=== PATIENT | female | born 1970 | race African-American/Black ===

== ENCOUNTER 2020-02-21 13:57 | Outpatient (REF) | payer OTHER, SELFPAY ==
--- NOTE | 2020-02-21 14:19 | US_ITS ---
EXAMINATION: US PELVIS COMPLETE CLINICAL INFORMATION: Menorrhagia. COMPARISON: Ultrasound 03/02/2018. TECHNIQUE: Routine transabdominal and transvaginal ultrasound the pelvis is performed. FINDINGS: Uterus is retroverted and retroflexed measuring 11.1 cm in length, 4.5 cm in AP and 5.9 cm in transverse dimension. The endometrial thickness measures 0.6 cm. No IUD is present at this time. The uterus is slightly heterogenous but no focal mass seen. The right ovary measures 3.7 x 2.4 x 2.5 cm and volume 11.6 mL. There is a corpus luteal cyst measuring 1.6 x 1.5 x 1.7 cm. Previously right ovary measured 2.7 x 1.5 x 1.8 cm and volume 3.89 mL. Left ovary measures 3.1 x 1.9 x 1.7 cm and volume 5.2 mL. A few scattered follicles are seen. The largest dominant follicle measures 1.0 x 1.3 x 1.3 cm. There is no free fluid in the cul-de-sac. IMPRESSION: Unremarkable uterus. Small corpus luteal cyst right ovary. Small follicles in the left ovary with a dominant follicle measuring 1.3 cm.
== END 2020-02-21 13:58 | disposition home or self-care (01) ==
LOC: HO.US 13:57
PROVIDERS: Visit Provider Advanced Practice Midwife
DX: N92.0 Excessive and frequent menstruation with regular cycle (principal)
CPT/HCPCS: 76830; 76856

== ENCOUNTER 2020-02-27 09:15 | Day surgery (SDC) | payer OTHER, SELFPAY ==
[2020-02-21 15:43] VITALS: BMI 27.1
--- NOTE | 2020-02-26 12:41 | HO.ANESPROP2 ---
HPI - Anesthesia Eval Consult details Narrative: 49yo F for Colonoscopy PMFSH Past Medical History Medical History (Updated 02/27/20 @ 11:50 by Amanda Lopez MD) Acute anxiety Back pain Bronchial asthma Complex cyst of right ovary Complex ovarian cyst Depression Dysfunctional uterine bleeding EMG normal GERD (gastroesophageal reflux disease) Hemorrhoids Herpes genitalia HNP (herniated nucleus pulposus) PPD positive Family History Family History Father Hyperlipidemia Colon cancer CVD (cardiovascular disease) Mother Diabetes mellitus Glaucoma Maternal Grandmother Diabetes mellitus HTN (hypertension) Maternal Aunt Breast cancer Surgical History Surgical History History of 3 sections History of bilateral tubal ligation History of esophagogastroduodenoscopy (EGD) Social History Social History Alcohol intake: never Smoking Status: Never smoker Use of substances other than those prescribed or required for medical reasons: No Advance Directives: No Advance Directives Information Provided: Yes Gender identity: female Meds Allergies Allergy/AdvReac Type Severity Reaction Status Date / Time latex [LATEX] Allergy Mild RASH Verified 02/15/20 11:13 acetaminophen [From PERCOCET] Allergy Unknown RASH Verified 02/15/20 11:13 oxycodone [Percocet] Allergy Unknown rash Verified 02/15/20 11:13 Sulfa (Sulfonamide Allergy Unknown RASH Verified 02/15/20 11:13 Antibiotics) [SULFA (SULFONAMIDE ANTIBIOTICS)] amoxicillin [Augmentin] AdvReac Unknown diarrhea Verified 02/15/20 11:13 clavulanic acid [Augmentin] AdvReac Unknown diarrhea Verified 02/15/20 11:13 AUGMENTIN Allergy Unknown diarrhea Uncoded 06/07/19 00:00 PERCOCET Allergy Unknown rash Uncoded 06/07/19 00:00 Home Medications Medication Instructions Recorded Confirmed Type ascorbate calcium (vitamin C) 500 500 mg PO DAILY 02/15/20 02/21/20 History mg tablet cetirizine 10 mg capsule 10 mg PO DAILY 02/15/20 02/21/20 History ferrous sulfate 325 mg (65 mg 325 mg PO DAILY 02/15/20 02/21/20 History iron) tablet fluticasone propionate 50 1 spray INTRANASAL DAILY 02/15/20 02/21/20 History mcg/actuation nasal spray,suspension omeprazole 20 mg capsule,delayed 20 mg PO DAILY 02/15/20 02/21/20 History release Exam Exam Date and Time: February 26, 2020 1241 Height,Weight and Vital Signs: Height 5 ft 4 in Weight 71.668 kg Pertinent Lab Results Pertinent Lab Results: Laboratory Tests 12/01/19 14:46 WBC 5.3 Hgb 13.2 Hct 39.2 Plt Count 337 Assessment and Plan Assessment Anesthesia Assessment: Chart Reviewed
--- NOTE | 2020-02-27 10:19 | MHC.SHP ---
Pre-Procedural Eval Section B Chief Complaint: Screening Details of Present Illness: Colon cancer screening, family history of colon cancer Relevant Family History (Specify if Yes): Yes Relevant Social History: None Present Medications: see Short Stay Collaborative assessment Medical History: Significant History (Herpes, genital. GERD . ANXIETY. DEPRESSION . OVARIAN CYST . BACK PAIN ON AND OFF . HNP . PPD POSITIVE . DYSFUNCTIONAL UTERINE BLEEDING . BRONCHIAL ASTHMA. ) History of Previous Operations: Relevant previous surgery/procedure and date(s) (C section x 2, BTL) Allergies: Allergies Allergy/AdvReac Type Severity Reaction Status Date / Time latex [LATEX] Allergy Mild RASH Verified 02/15/20 11:13 acetaminophen [From PERCOCET] Allergy Unknown RASH Verified 02/15/20 11:13 oxycodone [Percocet] Allergy Unknown rash Verified 02/15/20 11:13 Sulfa (Sulfonamide Allergy Unknown RASH Verified 02/15/20 11:13 Antibiotics) [SULFA (SULFONAMIDE ANTIBIOTICS)] amoxicillin [Augmentin] AdvReac Unknown diarrhea Verified 02/15/20 11:13 clavulanic acid [Augmentin] AdvReac Unknown diarrhea Verified 02/15/20 11:13 AUGMENTIN Allergy Unknown diarrhea Uncoded 06/07/19 00:00 PERCOCET Allergy Unknown rash Uncoded 06/07/19 00:00 Review of Systems Sugical H&P ROS: Negative: Constitution, Cardiovascular, Respiratory, Gastrointestinal and Musculoskeletal Exam Surgical H&P Exam: Normal: Heart, Normal: Lungs, Normal: Extremities and Normal: Abdomen Plan Diagnosis/Plan: Unchanged Patient has been examined and remains a candidate for the planned procedure
[2020-02-27 10:46] VITALS: BP 128/78; PULSE 68; RESP 18; TEMP 36.5; O2SAT 100
--- NOTE | 2020-02-27 10:47 | P.BOP_ITS ---
Brief Operative Note Date of procedure: 02/27/20 Pre-op diagnosis: Colon cancer screening, family history of colon cancer Post-op diagnosis: other (hemorrhoids) Procedure: COLONOSCOPY TILL CECUM WITH BIOPSIES Consent: Indications for the procedure and potential complications of bleeding, perforation, reaction to medications and missed diagnosis were discussed with the patient and informed consent was obtained. Instrument: Olympus PCF H 190 L variable stiffness pediatric colonoscope Monitoring: Vital signs and clinical assessment, intermittent blood pressure monitoring, continuous EKG monitoring, Pulse oximetry and Carbon Dioxide monitoring were done throughout the procedure. Colon withdrawl time was 12 minutes. Procedure: The patient was placed in the left lateral decubitis position and pre-procedure medications were administered. After a digital rectal examination of the ano-rectum, the video colonoscope was inserted into the rectum and advanced through the colon to the cecum. The colonoscope was slowly withdrawn in a retrograde panoramic fashion and the colon mucosa was carefully examined including a retroflexed view of the rectum. Findings and interventions are described below. Procedure Difficulty: colon was long, tortuous and redundant and there was recurrent loop formation. Pt was placed in the supine position and LLQ pressure was applied to intubate the ascending colon Findings: Terminal Ileum: Not evaluated Cecum: Normal Ascending Colon: Normal Transverse Colon: Normal Descending Colon: Normal Sigmoid Colon: Normal Rectum: Normal Ano-rectum: Moderate internal hemorrhoids Colon preparation: Excellent Impression and Post Procedure Diagnosis: Colonoscopy Findings: No polyps were detected, random biopsies were obtained from the colon. Moderate hemorrhoids on retroflexed exam. Plan: Await pathology results Patient has an appointment on 03/04/20 in the [facility] with Amanda Lopez M.D.- . Repeat Colonoscopy interval based on path results - in 5 years due to positive FH of colon cancer (Dad in his 60's). Above findings were reviewed with the patient and a handout on Hemorrhoids was given in the discharge area Surgeon: Amanda Lopez MD Anesthesia: MAC (Dr Taylor) Educational Speech Language Clinician: Evelin Ascencio Estimated blood loss (mL): 0 Pathology: other (A. Random colon biopsies) Condition: stable Disposition: PACU
[2020-02-27] MEDS: Lactated Ringers 1,000 ML 100 ML IVCONT (10:52)
--- NOTE | 2020-02-27 11:26 | P.CONAN_ITS ---
[facility] / [facility] Past Medical History Medical History Acute anxiety Back pain Bronchial asthma Complex cyst of right ovary Complex ovarian cyst Depression Dysfunctional uterine bleeding EMG normal GERD (gastroesophageal reflux disease) Herpes genitalia HNP (herniated nucleus pulposus) PPD positive Family History Family History Father Hyperlipidemia Colon cancer CVD (cardiovascular disease) Mother Diabetes mellitus Glaucoma Maternal Grandmother Diabetes mellitus HTN (hypertension) Maternal Aunt Breast cancer Surgical History Surgical History History of 3 sections History of bilateral tubal ligation History of esophagogastroduodenoscopy (EGD) Social History Social History Alcohol intake: never Smoking Status: Never smoker Use of substances other than those prescribed or required for medical reasons: No Advance Directives: No Advance Directives Information Provided: Yes Gender identity: female Meds Allergies Allergy/AdvReac Type Severity Reaction Status Date / Time latex [LATEX] Allergy Mild RASH Verified 02/15/20 11:13 acetaminophen [From PERCOCET] Allergy Unknown RASH Verified 02/15/20 11:13 oxycodone [Percocet] Allergy Unknown rash Verified 02/15/20 11:13 Sulfa (Sulfonamide Allergy Unknown RASH Verified 02/15/20 11:13 Antibiotics) [SULFA (SULFONAMIDE ANTIBIOTICS)] amoxicillin [Augmentin] AdvReac Unknown diarrhea Verified 02/15/20 11:13 clavulanic acid [Augmentin] AdvReac Unknown diarrhea Verified 02/15/20 11:13 AUGMENTIN Allergy Unknown diarrhea Uncoded 06/07/19 00:00 PERCOCET Allergy Unknown rash Uncoded 06/07/19 00:00 Home Medications Medication Instructions Recorded Confirmed Type ascorbate calcium (vitamin C) 500 500 mg PO DAILY 02/15/20 02/21/20 History mg tablet cetirizine 10 mg capsule 10 mg PO DAILY 02/15/20 02/21/20 History ferrous sulfate 325 mg (65 mg 325 mg PO DAILY 02/15/20 02/21/20 History iron) tablet fluticasone propionate 50 1 spray INTRANASAL DAILY 02/15/20 02/21/20 History mcg/actuation nasal spray,suspension omeprazole 20 mg capsule,delayed 20 mg PO DAILY 02/15/20 02/21/20 History release Exam Exam Date and Time: February 27, 2020 1126 Height,Weight and Vital Signs: Height 5 ft 4 in Weight 71.668 kg Last Vital Signs Temp 97.7 F 02/27/20 10:46 Pulse 68 02/27/20 10:46 Resp 18 02/27/20 10:46 BP 128/78 02/27/20 10:46 Pulse Ox 100 02/27/20 10:46 Airway Mallampati Class: II TM Dist: >3cm Neck ROM: Full Heart: RRR Lungs: CTA BL
--- NOTE | 2020-02-27 11:28 | P.CONAN_ITS ---
[facility] Past Medical History Medical History Acute anxiety Back pain Bronchial asthma Complex cyst of right ovary Complex ovarian cyst Depression Dysfunctional uterine bleeding EMG normal GERD (gastroesophageal reflux disease) Herpes genitalia HNP (herniated nucleus pulposus) PPD positive Family History Family History Father Hyperlipidemia Colon cancer CVD (cardiovascular disease) Mother Diabetes mellitus Glaucoma Maternal Grandmother Diabetes mellitus HTN (hypertension) Maternal Aunt Breast cancer Surgical History Surgical History History of 3 sections History of bilateral tubal ligation History of esophagogastroduodenoscopy (EGD) Social History Social History Alcohol intake: never Smoking Status: Never smoker Use of substances other than those prescribed or required for medical reasons: No Advance Directives: No Advance Directives Information Provided: Yes Gender identity: female Meds Allergies Allergy/AdvReac Type Severity Reaction Status Date / Time latex [LATEX] Allergy Mild RASH Verified 02/15/20 11:13 acetaminophen [From PERCOCET] Allergy Unknown RASH Verified 02/15/20 11:13 oxycodone [Percocet] Allergy Unknown rash Verified 02/15/20 11:13 Sulfa (Sulfonamide Allergy Unknown RASH Verified 02/15/20 11:13 Antibiotics) [SULFA (SULFONAMIDE ANTIBIOTICS)] amoxicillin [Augmentin] AdvReac Unknown diarrhea Verified 02/15/20 11:13 clavulanic acid [Augmentin] AdvReac Unknown diarrhea Verified 02/15/20 11:13 AUGMENTIN Allergy Unknown diarrhea Uncoded 06/07/19 00:00 PERCOCET Allergy Unknown rash Uncoded 06/07/19 00:00 Home Medications Medication Instructions Recorded Confirmed Type ascorbate calcium (vitamin C) 500 500 mg PO DAILY 02/15/20 02/21/20 History mg tablet cetirizine 10 mg capsule 10 mg PO DAILY 02/15/20 02/21/20 History ferrous sulfate 325 mg (65 mg 325 mg PO DAILY 02/15/20 02/21/20 History iron) tablet fluticasone propionate 50 1 spray INTRANASAL DAILY 02/15/20 02/21/20 History mcg/actuation nasal spray,suspension omeprazole 20 mg capsule,delayed 20 mg PO DAILY 02/15/20 02/21/20 History release Exam Exam Date and Time: February 27, 2020 1128 Height,Weight and Vital Signs: Height 5 ft 4 in Weight 71.668 kg Last Vital Signs Temp 97.7 F 02/27/20 10:46 Pulse 68 02/27/20 10:46 Resp 18 02/27/20 10:46 BP 128/78 02/27/20 10:46 Pulse Ox 100 02/27/20 10:46 Assessment and Plan Assessment Anesthesia Assessment: Anesthesia Plan Discussed and PAT Visit Final Anesthetic Review NPO: Yes ASA Class: II Final Preanesthetic Review: No Changes in Pt Med Stat, Meds/Allgs Chart Reviewed, Consent Obtained/Reviewed and Anes Risks/Benef Reviewed Patient Risk: Low Procedure Risk: Low Anesthetic Plan Anesthetic Plan: MAC: Disposition: Standard PACU
[2020-02-27 11:58] VITALS: BP 119/58; PULSE 88; RESP 16; TEMP 36.2; O2SAT 100
[2020-02-27 12:13] VITALS: BP 109/67; PULSE 82; RESP 17; TEMP 37.1; O2SAT 99
--- NOTE | 2020-02-27 12:44 | HO.POSTANES ---
Post Anesthesia Evaluation Post Anesthesia Evaluation Vital Signs: Vital Signs Temp Pulse Resp BP Pulse Ox 02/27/20 12:13 98.8 F 82 17 109/67 99 02/27/20 11:58 97.1 F 88 16 119/58 L 100 02/27/20 10:46 97.7 F 68 18 128/78 100 Anesthesia: Monitored Mental Status: Awake Pain Control: Satisfactory Nausea/Vomiting: None Hydration: Adequate Anesthesia-Related Issues: No Anes. Related Issues
== END 2020-02-27 12:50 | disposition home or self-care (01) ==
PROVIDERS: PCP Internal Medicine; Visit Provider Internal Medicine Gastroenterology
PROC: 0DJD8ZZ Inspection of Lower Intestinal Tract, Via Natural or Artificial Opening Endoscopic (ICD-10-PCS; CPT 45378; principal; 2020-02-27 10:30)
DX: Z12.11 Encounter for screening for malignant neoplasm of colon (principal); Z80.0 Family history of malignant neoplasm of digestive organs; K64.8 Other hemorrhoids; K21.9 Gastro-esophageal reflux disease without esophagitis; F41.9 Anxiety disorder, unspecified; J45.909 Unspecified asthma, uncomplicated; A60.00 Herpesviral infection of urogenital system, unspecified; R76.11 Nonspecific reaction to tuberculin skin test without active tuberculosis; Z79.51 Long term (current) use of inhaled steroids; Z79.899 Other long term (current) drug therapy; Z88.2 Allergy status to sulfonamides; Z88.1 Allergy status to other antibiotic agents; Z88.8 Allergy status to other drugs, medicaments and biological substances; Z91.040 Latex allergy status
CPT/HCPCS: 45380; 88305

== ENCOUNTER → 2020-03-04 11:24 | Outpatient (BNVA) | payer OTHER, SELFPAY | PROVIDERS: PCP Internal Medicine; Visit Provider Advanced Practice Midwife | DX: Z76.89 Persons encountering health services in other specified circumstances (principal) ==

== ENCOUNTER → 2020-03-08 13:05 | Outpatient (BNVA) | payer OTHER, SELFPAY | PROVIDERS: PCP Internal Medicine; Visit Provider Urology | DX: N39.3 Stress incontinence (female) (male) (principal) | CPT/HCPCS: 81002 ==

== ENCOUNTER 2020-04-30 09:18 | Outpatient (REF) | payer OTHER, SELFPAY ==
[2020-04-30 11:47] LABS: Hematocrit 39.4 % (37-47); Hemoglobin 12.9 g/dl (12.0-16.0); Mean Corpuscular HGB Conc 32.7 g/dl (31.0-35.0); Mean Corpuscular Hemoglobin 31.9 pg (27.0-33.0); Mean Corpuscular Volume 97.5 fL (80-98); Mean Platelet Volume 9.7 fL (9.4-12.3); Platelet Count 373 X10*3/uL (160-400); Red Blood Count 4.04 X10*6/uL (4.20-5.50); Red Cell Distribution Width 13.2 % (11.0-16.0); White Blood Count 4.5 X10*3/uL (4.8-10.8)
[2020-04-30 12:17] LABS: TSH reflex Free T4 1.58 mIU/mL (0.32-4.0)
== END 2020-04-30 09:19 | disposition home or self-care (01) ==
LOC: HO.LAB 09:18
PROVIDERS: PCP Internal Medicine; Visit Provider Advanced Practice Midwife
DX: N92.0 Excessive and frequent menstruation with regular cycle (principal)
CPT/HCPCS: 36415; 84443; 85027

== ENCOUNTER → 2020-05-07 11:12 | Outpatient (BNVA) | payer OTHER, SELFPAY | PROVIDERS: PCP Internal Medicine; Visit Provider Advanced Practice Midwife | DX: Z76.89 Persons encountering health services in other specified circumstances (principal) ==

== ENCOUNTER 2020-05-22 07:56 | Outpatient (REF) | payer OTHER, SELFPAY | END 2020-05-22 07:57 | disposition home or self-care (01) | LOC: HO.LAB 07:56 | PROVIDERS: PCP Internal Medicine; Visit Provider Obstetrics & Gynecology | DX: N93.9 Abnormal uterine and vaginal bleeding, unspecified (principal); Z88.2 Allergy status to sulfonamides; Z88.8 Allergy status to other drugs, medicaments and biological substances; Z91.040 Latex allergy status | CPT/HCPCS: 58100; 88305 ==

== ENCOUNTER 2020-05-24 09:27 | Outpatient (REF) | payer OTHER, SELFPAY ==
--- NOTE | 2020-05-24 | MM_ITS ---
EXAMINATION: MM SCREENING DIGITAL BREAST TOMOSYNTHESIS, BILATERAL CLINICAL INFORMATION: Screening. Asymptomatic. The lifetime risk of breast cancer based on the Tyrer-Cuzick Model is 7%. COMPARISON: Mammography: 05/30/2019, 12/14/2018, 12/10/2017, 08/20/2016, 01/02/2016; ultrasound left breast 05/30/2019; bilateral targeted breast ultrasound 12/19/2018 TECHNIQUE: Digital breast tomosynthesis is performed in both the craniocaudal and mediolateral oblique views along with computer-aided detection (CAD). Synthesized 2D images are generated from the tomosynthesis. FINDINGS: The breasts are heterogeneously dense, which may obscure small masses (ACR BI-RADS breast composition Category c). There is fibrocystic parenchymal pattern again noted with some waxing and waning oval and round masses in each breast consistent with prior mammography and targeted ultrasound exams. There is no significant mass or architectural abnormality. No abnormal calcifications. The axilla and skin contours are unremarkable. MM/MM tomosynthesis screening BI IMPRESSION: No significant changes from prior exams. ASSESSMENT: BI-RADS 2: Benign RECOMMENDATION: Routine annual mammography screening. This patient's information was entered into a reminder system with a target due date for their next mammogram.
== END 2020-05-24 09:28 | disposition home or self-care (01) ==
LOC: HO.MAMMO 09:27
PROVIDERS: Visit Provider Internal Medicine
DX: Z12.31 Encounter for screening mammogram for malignant neoplasm of breast (principal)
CPT/HCPCS: 77063; 77067

== ENCOUNTER → 2020-05-28 13:26 | Outpatient (BNVA) | payer OTHER, SELFPAY | PROVIDERS: Visit Provider Obstetrics & Gynecology ==

== ENCOUNTER 2020-06-13 06:58 | Day surgery (SDC) | payer OTHER, SELFPAY ==
[2020-06-10 10:54] VITALS: BMI 28.1
--- NOTE | 2020-06-12 12:13 | P.CONAN_ITS ---
Documented by User: Mercy Louise 06/12/20 12:16 HPI - Anesthesia Eval Consult details Narrative: 49yo F for D&C Hysteroscopy with Novasure ablation *mult med allergies* PMFSH Active Problems Active Problems: All Active Problems (Updated 06/10/20 @ 10:52 by Hermila Espinoza) Epigastric pain (Acute) Family history of colon cancer in father (Acute) Hemorrhoids, internal, with bleeding (Acute) Menorrhagia (Acute) GERD (gastroesophageal reflux disease) (Acute) Hemorrhoids (Acute) Past Medical History Medical History Acute anxiety Back pain Bronchial asthma Complex cyst of right ovary Complex ovarian cyst Depression Dysfunctional uterine bleeding EMG normal GERD (gastroesophageal reflux disease) Hemorrhoids Herpes genitalia History of COVID-19 HNP (herniated nucleus pulposus) PPD positive Family History Family History Father Hyperlipidemia Colon cancer CVD (cardiovascular disease) Mother Diabetes mellitus Glaucoma Maternal Grandmother Diabetes mellitus HTN (hypertension) Maternal Aunt Breast cancer Surgical History Surgical History History of 3 sections History of bilateral tubal ligation History of colonoscopy History of esophagogastroduodenoscopy (EGD) Social History Social History Alcohol intake: never Smoking Status: Never smoker Use of substances other than those prescribed or required for medical reasons: No Have you been hit, kicked, punched, or otherwise hurt by someone within the past year? If so, by whom?: No Advance Directives: No Advance Directives Information Provided: No Advance Directives on File: No Gender identity: female Meds Allergies Allergy/AdvReac Type Severity Reaction Status Date / Time latex [LATEX] Allergy Mild RASH Verified 06/10/20 10:51 acetaminophen [From PERCOCET] Allergy Unknown RASH Verified 06/10/20 10:51 oxycodone [Percocet] Allergy Unknown rash Verified 06/10/20 10:51 Sulfa (Sulfonamide Allergy Unknown RASH Verified 06/10/20 10:51 Antibiotics) [SULFA (SULFONAMIDE ANTIBIOTICS)] amoxicillin [Augmentin] AdvReac Unknown diarrhea Verified 06/10/20 10:51 clavulanic acid [Augmentin] AdvReac Unknown diarrhea Verified 06/10/20 10:51 Home Medications Medication Instructions Recorded Confirmed Last Taken Type ascorbate calcium (vitamin C) 500 500 mg PO DAILY 02/15/20 06/10/20 Unknown History mg tablet cetirizine 10 mg capsule 10 mg PO DAILY 02/15/20 03/04/20 Unknown History ferrous sulfate 325 mg (65 mg 325 mg PO DAILY 02/15/20 06/10/20 Unknown History iron) tablet fluticasone propionate 50 1 spray INTRANASAL DAILY 02/15/20 06/10/20 Unknown History mcg/actuation nasal spray,suspension Exam Exam Date and Time: June 12, 2020 1213 Height,Weight and Vital Signs: Height 5 ft 4 in Weight 74.389 kg Pertinent Lab Results Pertinent Lab Results: Laboratory Tests 04/30/20 11:15 WBC 4.5 L Hgb 12.9 Hct 39.4 Plt Count 373 Assessment and Plan Assessment Anesthesia Assessment: Chart Reviewed Documented by User: Edwige Schofield 06/13/20 08:03 [facility] Past Medical History Medical History Acute anxiety Back pain Bronchial asthma Complex cyst of right ovary Complex ovarian cyst Depression Dysfunctional uterine bleeding EMG normal GERD (gastroesophageal reflux disease) Hemorrhoids Herpes genitalia History of COVID-19 HNP (herniated nucleus pulposus) PPD positive Family History Family History Father Hyperlipidemia Colon cancer CVD (cardiovascular disease) Mother Diabetes mellitus Glaucoma Maternal Grandmother Diabetes mellitus HTN (hypertension) Maternal Aunt Breast cancer Surgical History Surgical History History of 3 sections History of bilateral tubal ligation History of colonoscopy History of esophagogastroduodenoscopy (EGD) Social History Social History Alcohol intake: never Smoking Status: Never smoker Use of substances other than those prescribed or required for medical reasons: No Have you been hit, kicked, punched, or otherwise hurt by someone within the past year? If so, by whom?: No Advance Directives: No Advance Directives Information Provided: No Advance Directives on File: No Gender identity: female Meds Allergies Allergy/AdvReac Type Severity Reaction Status Date / Time latex [LATEX] Allergy Mild RASH Verified 06/10/20 10:51 acetaminophen [From PERCOCET] Allergy Unknown RASH Verified 06/10/20 10:51 oxycodone [Percocet] Allergy Unknown rash Verified 06/10/20 10:51 Sulfa (Sulfonamide Allergy Unknown RASH Verified 06/10/20 10:51 Antibiotics) [SULFA (SULFONAMIDE ANTIBIOTICS)] amoxicillin [Augmentin] AdvReac Unknown diarrhea Verified 06/10/20 10:51 clavulanic acid [Augmentin] AdvReac Unknown diarrhea Verified 06/10/20 10:51 Home Medications Medication Instructions Recorded Confirmed Last Taken Type ascorbate calcium (vitamin C) 500 500 mg PO DAILY 02/15/20 06/10/20 Unknown History mg tablet cetirizine 10 mg capsule 10 mg PO DAILY 02/15/20 03/04/20 Unknown History ferrous sulfate 325 mg (65 mg 325 mg PO DAILY 02/15/20 06/10/20 Unknown History iron) tablet fluticasone propionate 50 1 spray INTRANASAL DAILY 02/15/20 06/10/20 Unknown History mcg/actuation nasal spray,suspension Exam Airway Mallampati Class: II TM Dist: >3cm Neck ROM: Full Assessment and Plan Assessment Anesthesia Assessment: Anesthesia Plan Discussed and Chart Reviewed Final Anesthetic Review NPO: Yes ASA Class: II Final Preanesthetic Review: No Changes in Pt Med Stat, Meds/Allgs Chart Reviewed, Consent Obtained/Reviewed and Anes Risks/Benef Reviewed Patient Risk: Low Procedure Risk: Low Assessment/Block/Sedation in SS: Assess/Block/Sedation-SS Anesthetic Plan Anesthetic Plan: GA Disposition: Standard PACU
[2020-06-13] VITALS (13 sets, daily range): BP systolic 133–152; BP diastolic 85–95; PULSE 68–91; RESP 16–18; TEMP 36.1–36.8; O2SAT 93–100
[2020-06-13] MEDS: Lactated Ringers 1,000 ML 100 ML IVCONT (07:55)
--- NOTE | 2020-06-13 08:07 | MHC.SHP ---
Pre-Procedural Eval Section A The patient is an INPATIENT: No Changes since office visit: No Cold of Flu in the past 2 weeks, No New Medical Problems, No Changes in Medication and No Patient answered all questions The History & Physical has been completed within 30 days and I have reviewed it.: Yes Section B Chief Complaint: vaginal bleeding Allergies: Allergies Allergy/AdvReac Type Severity Reaction Status Date / Time latex [LATEX] Allergy Mild RASH Verified 06/10/20 10:51 acetaminophen [From PERCOCET] Allergy Unknown RASH Verified 06/10/20 10:51 oxycodone [Percocet] Allergy Unknown rash Verified 06/10/20 10:51 Sulfa (Sulfonamide Allergy Unknown RASH Verified 06/10/20 10:51 Antibiotics) [SULFA (SULFONAMIDE ANTIBIOTICS)] amoxicillin [Augmentin] AdvReac Unknown diarrhea Verified 06/10/20 10:51 clavulanic acid [Augmentin] AdvReac Unknown diarrhea Verified 06/10/20 10:51 Plan I have reviewed the history and physical and performed a pertinent physical examination on my patient. No changes have occurred unless specified.
[2020-06-13 08:08] LABS: HCG Quantitative < 2 mIU/mL
[2020-06-13] MEDS: fentaNYL citrate/PF 100 MCG/2 ML VIAL 50 MCG IVPUSH (10:24)
--- NOTE | 2020-06-13 10:31 | W.PM.OPN ---
Operative Note Operative Note Date of Service: 06/13/20 Narrative: Procedures performed: 1) hysteroscopy dilation and curettage 2) diagnostic laparoscopy Pre-Op diagnosis: 1) abnormal uterine bleeding Post op Diagnosis: 1) abnormal uterine bleeding 2) uterine perforation Ms. Marquise Briscoe is a 49 year old with abnormal uterine bleeding. She presents today for hysteroscopy d&c and novasure ablation for management of her AUB. Surgical Risks: The patient was informed of the risks and benefits of a hysteroscopy with dilation and curettage. Risks included but were not limited to bleeding, infection, injury to the vulva, vagina, or cervix, and uterine perforation with possible need for further surgery. The patient expressed understanding of the risks involved, all questions were answered, and the patient consented to the procedure. The patient was taken to the operating room where a time out was confirmed to confirm correct patient and correct procedure. Adequate IV sedation was established. The patient was then positioned on the operating table in the dorsal lithotomy position with her legs supported using stirrups. All pressure points were padded and awarm blanket was placed to maintain control of core body temperature. The patient was then prepped and draped in the usual sterile fashion. A bimanual exam was performed and the uterus was found to be approximately 8 cm size, anteverted. A straight catheter was inserted into the bladder and minimal urine was obtained as the patient had voided just prior to the procedure. A bivalve speculum was then inserted into the vagina. The anterior lip of the cervix was visualized and grasped using a single tooth tenaculum. The cervix was adequately dilated using Liu dilators for the introduction of the hysteroscope. The hysteroscope was introduced under direct visualization using normal saline solution as the distending media. The hysteroscope was advanced through the cervix and into abnormal appearing tissue suspicious for uterine synechiae. A sharp curette was advanced to attempt to clear what was thought to be synechiae; however, tissue returned with the sharp curette appeared fatty, like mesentary, and concern was felt for perforation with possible bowel injury. It was also at this time noted that there was a fluid deficit of approximately 2500mL. 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 The decision was made to perform emergency laparoscopy to confirm no bowel injury. General surgery was consulted for assistance to evaluate for possible bowel injury. General anesthesia was established and the patient was prepped and draped in the usual sterile fashion for the new procedure. Dr. Terry scrubbed in to perform diagnostic laparoscpy. Attention was turned to the abdomen where a 5mm horizontal infraumbilical incision was made. Dr. Terry inserted the veress needle and performed a drop test to confirm intra-abdominal placement. Pneumoperitoneum was established. The veress needle was then removed and the 5mm trocar was introduced under direct visualization using the laparoscopy within the sleeve of the trocar. Inspection of the abdominal cavity showed a large amount of clear fluid in the abdomen and pelvis. A midline adhesion to the anterior abdominal wall of fatty appearing tissue was noted. There was no obvious injury to the bowels or other viscera. A small incision was made on the patient's left approximately 2cm superior and 3cm medial to the left ASIS. A 5mm trocar was introduced through this incision under direct visualization with the laparoscope. The identical procedure was then performed on the right. The patient was placed in trendelenberg to allow better visualization of the pelvis and diagnostic laparoscopy was performed. A suction account executive metalworking was introduced through the left trocar and clear fluid was removed from the abdomen and pelvis. The uterus was examined with no obvious perforation noted. The colon was examined and noted to be without any bruising or notable injury. There was no blood noted in the pelvis or posterior cul de sac. The anterior uterus was then examined and although no perforation was visible on the uterus, there was a perforation noted in the fatty tissue of the anterior abdominal wall. No active bleeding was visualized. Dr. Terry reported that there was no evidence of any bowel injury. The pneumoperitoneum was then evacuated. The laparoscope was removed and the trocar sleeves were removed. The skin incisions were closed with 3-0 poly and Dermabond was then applied. Good hemostasis was confirmed. Straight catheterization was then confirmed with the return of clear urine. The single-tooth tenaculum was removed from the anterior lip of the cervix and hemostasis was also noted at the tenaculum puncture sites. The speculum was then removed from the vagina. The patient was transferred to the recovery room in stable condition. All needle, sponge, and instrument counts were noted to be correct x2 at the end of the procedure.
--- NOTE | 2020-06-14 10:03 | W.PM.OPN ---
Operative Note Operative Note Date of Service: 06/13/20 Narrative: Preoperative diagnosis: Entry into abdominal cavity during Hysteroscopy Postoperative diagnosis: Entry into abdominal cavity during hysteroscopy, no evidence of intestinal injury Procedure: Diagnostic laparoscopy Surgeon: J Luis Terry MD Station Supervisor: Sheila Quintero MD Anesthesia: General ET Indications for procedure: Patient is undergoing hysteroscopy and D&C it was noted to have peritoneum on biopsy. Patient was converted to a diagnostic laparoscopy to assure no internal or intestinal injuries. Operative findings: Patient was found to have entry into the abdominal cavity above the uterus and lateral to the bladder. No colonic or small bowel injury is identified. A large collection of irrigation fluid was noted within the abdominal cavity. The fluid was not bile or stool stained. No hematoma of the abdominal wall could be identified. Specimen: None Estimated blood loss: 5 mL Complications: None Procedure details: At the request of Dr. Quintero, I was called to the OR to perform a diagnostic laparoscopy due to the above reasons. Patient was placed in a supine position with lithotomy stirrups. The abdominal wall was prepped with ChloraPrep and draped in a sterile fashion. A small 5 mm incision was made below the umbilicus. Veress needle was then inserted while elevating the abdominal cavity with towel clips. After positive drop test the abdomen was insufflated to a pressure of 15 mm of mercury. The Veress needle was then removed and a 5 mm trocar inserted. The camera was then inserted in the abdomen explored. A large collection of irrigation fluid was noted within the abdominal cavity. Two 5 mm trocars were placed on either side including 1 in the left lower quadrant a 2nd on the right lower quadrant. The patient was placed in a steep Trendelenburg position. The irrigation fluid was evacuated. Uterus was then examined. Beginning posteriorly no apparent injury could be identified in the posterior wall. No hematoma was identified. Rectum sigmoid colon and adjacent small bowel was examined and no bowel injuries were identified. Attention was then directed to the anterior uterus. Examination at the junction with the bladder did revealed a break in the peritoneum to the right. No apparent bladder injury, uterine wall injury, or bowel injury is noted in this location. At this point this CO2 was evacuated from the abdominal cavity and all trocars removed. Remainder of the procedure was completed by Dr. Quintero.
== END 2020-06-13 13:18 | disposition home or self-care (01) ==
LOC: HO.SSS 06:58
PROVIDERS: PCP Internal Medicine; Visit Provider Obstetrics & Gynecology
PROC: (CPT 58558; principal; 2020-06-13 08:40)
DX: N93.9 Abnormal uterine and vaginal bleeding, unspecified (principal); K91.72 Accidental puncture and laceration of a digestive system organ or structure during other procedure; K66.0 Peritoneal adhesions (postprocedural) (postinfection); Y65.8 Other specified misadventures during surgical and medical care; Y76.3 Surgical instruments, materials and obstetric and gynecological devices (including sutures) associated with adverse incidents; Y92.234 Operating room of hospital as the place of occurrence of the external cause
CPT/HCPCS: 58558; 49320; 49084; 36415; 84702; 88305; 88331; J0330; J1100; J1885; J2405; J3010

== ENCOUNTER → 2020-07-01 11:52 | Outpatient (BNVA) | payer OTHER, SELFPAY | PROVIDERS: PCP Internal Medicine; Visit Provider Obstetrics & Gynecology ==

== ENCOUNTER 2020-08-09 10:00 | Outpatient (REF) | payer OTHER, SELFPAY ==
[2020-08-09 14:13] LABS: CT PCR NOT DETECTED (Not Detect.); NG PCR NOT DETECTED (Not Detect.)
[2020-08-10 15:15] LABS: BV Int Neg Control Negative (Negative); BV Int Pos Control Positive (Positive)
[2020-08-14 14:22] LABS: HPV mRNA E6/E7 rflx Not Detected (Not Detected)
== END 2020-08-09 10:01 | disposition home or self-care (01) ==
LOC: HO.LAB 10:00
PROVIDERS: PCP Internal Medicine; Visit Provider Obstetrics & Gynecology
DX: Z01.419 Encounter for gynecological examination (general) (routine) without abnormal findings (principal); N83.291 Other ovarian cyst, right side; R19.03 Right lower quadrant abdominal swelling, mass and lump; N93.8 Other specified abnormal uterine and vaginal bleeding; Z88.5 Allergy status to narcotic agent; Z88.2 Allergy status to sulfonamides; Z88.8 Allergy status to other drugs, medicaments and biological substances; Z88.4 Allergy status to anesthetic agent; Z88.1 Allergy status to other antibiotic agents; Z91.040 Latex allergy status
CPT/HCPCS: 87480; 87491; 87510; 87591; 87624; 87660; 88142

== ENCOUNTER 2020-08-15 12:45 | Outpatient (REF) | payer OTHER, SELFPAY ==
--- NOTE | ~2020-08-15 | US_ITS ---
EXAMINATION: PELVIC ULTRASOUND CLINICAL INFORMATION: Right lower quadrant pain. Post endometrial ablation 2 months ago. COMPARISON: Previous pelvic ultrasound February 2020 TECHNIQUE: Transabdominal and transvaginal pelvic ultrasound was performed. Transvaginal exam was performed for better visualization of the uterus and ovaries. FINDINGS: The uterus is retroverted and measures 10.2 x 3.9 x 5.7 cm in dimension. Endometrium does not appear thickened measuring 2 mm. There is a small amount fluid in the endometrial cavity and echogenic focus questionable for air or calcification. No focal uterine lesion is seen. The right ovary measures 3.9 x 1.7 x 2.5 cm. There is a 2.4 x 1.7 x 1.3 cm simple cyst. The left ovary measures 3.2 x 2.6 x 3.3 cm. there is a 2.5 x 2.1 x 2.1 cm left simple cyst. There is a small amount of fluid in the pelvis. US/US pelvic and transvaginal IMPRESSION: Small amount of fluid in the endometrial cavity. The endometrium does not appear thickened. Bilateral ovarian cysts, largest measuring 2.5 x 2.1 x 2.1 cm on the left.
== END 2020-08-15 12:46 | disposition home or self-care (01) ==
LOC: HO.US 12:45
PROVIDERS: PCP Internal Medicine; Visit Provider Obstetrics & Gynecology
DX: R19.03 Right lower quadrant abdominal swelling, mass and lump (principal)
CPT/HCPCS: 76830; 76856

== ENCOUNTER 2020-10-22 09:28 | Outpatient (REF) | payer OTHER, SELFPAY ==
[2020-10-22 11:35] LABS: MANUAL DIFF FLAG NO
[2020-10-22 11:44] LABS: Basophils Percent Auto 0.5 % (0-2); Eosinophils Absolute Auto 0.4 X10*3/uL (0.0-0.4); Eosinophils Percent Auto 6.8 % (0-4); Hematocrit 38.5 % (37-47); Imm Gran Abs Auto 0.02 X10*3/uL (0.00-0.03); Imm Gran Pct Auto 0.4 % (0.0-0.4); Lymphocytes Absolute Auto 1.9 X10*3/uL (1.2-4.9); Lymphocytes Percent Auto 34.7 % (20-40); Mean Corpuscular HGB Conc 33.8 g/dl (31.0-35.0); Mean Corpuscular Hemoglobin 32.2 pg (27.0-33.0); Mean Corpuscular Volume 95.3 fL (80-98); Monocytes Absolute Auto 0.6 X10*3/uL (0.1-1.2); Monocytes Percent Auto 10.9 % (2-11); Neutrophils Absolute Auto 2.6 X10*3/uL (2.0-8.3); Neutrophils Percent Auto 46.7 % (45-73); Platelet Count 336 X10*3/uL (160-400); Red Blood Count 4.04 X10*6/uL (4.20-5.50); Red Cell Distribution Width 12.2 % (11.0-16.0); White Blood Count 5.5 X10*3/uL (4.8-10.8)
[2020-10-22 12:03] LABS: Alanine Aminotransferase 12 U/L (0-31); Albumin Level 3.9 g/dL (3.5-5.0); Alkaline Phosphatase 77 U/L (39-117); Anion Gap 12 (12-20); Aspartate Amino Transferase 18 U/L (5-31); Bilirubin Total 0.4 mg/dL (0.0-1.0); Blood Urea Nitrogen 10 mg/dL (9-16); Calcium 9.4 mg/dL (8.4-10.2); Carbon Dioxide 24 mmol/L (22-29); Chloride 108 mmol/L (96-108); Cholesterol 215 mg/dL; Estimated Glomerular Filt Rate > 60; Glucose Fasting 90 mg/dL (60-99); HDL Cholesterol 54 mg/dL; LDL Cholesterol Calculated 146 mg/dl; Potassium 4.3 mmol/L (3.3-5.1); Sodium 140 mmol/L (135-145); Total Protein 6.9 g/dL (6.5-8.0); Triglycerides 75 mg/dL
[2020-10-22 12:14] LABS: TSH reflex Free T4 2.38 uIU/mL (0.32-4.0)
== END 2020-10-22 09:29 | disposition home or self-care (01) ==
LOC: HO.HMGCLDS 09:28
PROVIDERS: PCP Internal Medicine; Visit Provider Internal Medicine
DX: Z00.01 Encounter for general adult medical examination with abnormal findings (principal); G43.909 Migraine, unspecified, not intractable, without status migrainosus; K64.9 Unspecified hemorrhoids; R25.2 Cramp and spasm
CPT/HCPCS: 36415; 80053; 80061; 84443; 85025

== ENCOUNTER → 2020-11-21 09:12 | Outpatient (BNVA) | payer OTHER, SELFPAY | PROVIDERS: PCP Internal Medicine; Referring Provider Internal Medicine; Visit Provider Internal Medicine Gastroenterology ==

== ENCOUNTER 2021-01-15 16:08 | Emergency (ER) | payer OTHER, SELFPAY ==
--- NOTE | ~2021-01-15 | CT_ITS ---
EXAMINATION: CT ABDOMEN AND PELVIS WITH CONTRAST CLINICAL INFORMATION: Right lower quadrant pain with question of appendicitis COMPARISON: CT abdomen pelvis 05/30/2015 TECHNIQUE: Multidetector volumetric images were obtained from the superior aspect of the liver through the pubic symphysis following administration 85 mL of Omnipaque 350 intravenous contrast. Sagittal and coronal reformatted images were obtained on the technologist's workstation. Oral contrast: No This CT examination was performed using dose optimization techniques as appropriate, variously including the following: *Automated exposure control *Adjustment of mA and/or kV according to patient size (this includes techniques or standardized protocols for targeted exams where dose is matched to indication/reason for exam; i.e. extremities or head) *Use of iterative reconstruction technique DLP: 543 mGy-cm FINDINGS: LUNG BASES: The visualized lung bases are unremarkable. LIVER, GALLBLADDER, AND BILIARY TREE: The liver is normal in size, shape, and attenuation. No focal hepatic lesion or biliary ductal dilatation is present. The gallbladder is unremarkable with no evidence of radiopaque gallstones, gallbladder wall thickening, or obvious pericholecystic inflammatory changes. PANCREAS: Unremarkable. SPLEEN: Unremarkable. ADRENAL GLANDS: Unremarkable. KIDNEYS AND URETERS: The kidneys are normal in size, shape, and attenuation. A tiny 2 mm hypodensity present, possibly an angiomyolipoma, in the right mid kidney. No hydronephrosis, hydroureter, or calculi seen. No perinephric stranding. BLADDER: The bladder wall demonstrates symmetric thickening which can be seen with cystitis. GASTROINTESTINAL TRACT: The small and large bowel are unremarkable. The appendix is unremarkable. ABDOMINAL WALL: No significant hernia is appreciated. There is some mild diastases of the rectus muscles in the upper abdomen with some minimal forward bulging. LYMPH NODES: Small shotty retroperitoneal lymph nodes seen without retroperitoneal lymphadenopathy. VASCULAR: Unremarkable. PELVIC VISCERA: A retroverted uterus is present. And abnormal adnexal mass or free intraperitoneal fluid is not present. OSSEOUS STRUCTURES: Degenerative changes present at L5-S1. CT/CT abdomen pelvis w con IMPRESSION: There is mild symmetric bladder wall thickening which can be seen with cystitis. No other significant abnormality seen that could possibly account for right lower quadrant pain. The appendix is normal. The terminal ileum is normal. No evidence of diverticulitis.
[2021-01-15 17:01] VITALS: BP 148/84; PULSE 82; RESP 17; TEMP 36.8; O2SAT 99; BMI 29.5
[2021-01-15 18:00] VITALS: BP 152/89; PULSE 69; RESP 14; TEMP 36.8; O2SAT 100
[2021-01-15 18:27] LABS: MANUAL DIFF FLAG NO
[2021-01-15 18:30] LABS: Appearance Urine CLEAR; Color Urine YELLOW; Glucose Urine UA NEG (NEG); Leukocyte Esterase Urine 3+ (NEG); Nitrite Urine NEG (NEG); Specific Gravity - Urine <= 1.005 (1.005-1.025); UACC Culture Trigger YES; Urine Blood NEG (NEG); Urine Ketones NEG (NEG); Urine Protein NEG (NEG-TRACE)
[2021-01-15 18:41] LABS: Bacteria Urine TRACE /LPF; RBC Urine 0 /HPF (0); Squamous Epithelial Cell Urine 1+ /LPF
[2021-01-15 18:43] LABS: Alanine Aminotransferase 18 U/L (0-31); Albumin Level 4.2 g/dL (3.5-5.0); Alkaline Phosphatase 85 U/L (39-117); Anion Gap 10 (12-20); Aspartate Amino Transferase 20 U/L (5-31); Bilirubin Total 0.3 mg/dL (0.0-1.0); Blood Urea Nitrogen 9 mg/dL (9-16); Calcium 9.8 mg/dL (8.4-10.2); Carbon Dioxide 29 mmol/L (22-29); Chloride 105 mmol/L (96-108); Creatinine Clr Calc Pharmacy 65.5; Estimated Glomerular Filt Rate 56; Glucose Random 106 mg/dL (60-115); Sodium 140 mmol/L (135-145); Total Protein 7.6 g/dL (6.5-8.0)
--- NOTE | 2021-01-15 18:47 | ED_ITS ---
HPI - Abdominal Pain General Chief Complaint: Abdominal Pain Stated Complaint: R side lower quadrant pain Time Seen by Provider: 01/15/21 18:42 History of Present Illness HPI narrative: Patient 50-year-old female presents today with having abdominal pain. The pain is dull. It is on the right lower quadrant radiating to the right flank area. Patient denies any fever chills. It is worse with specific movement. It has been ongoing for 2 weeks. There is no change in patient's appetite. No change in bowel movement. No coughing or congestion or upper respiratory symptoms. No diaphoresis no changes since smell or taste. Patient denies any pain on urination. No frequency. Patient from home. History of GERD Related Data Home Medications Medication Instructions Recorded Confirmed ascorbate calcium (vitamin C) 500 500 mg PO DAILY 02/15/20 01/15/21 mg tablet cetirizine 10 mg capsule (All Day 10 mg PO DAILY 02/15/20 01/15/21 Allergy (cetirizine)) ferrous sulfate 325 mg (65 mg 325 mg PO DAILY 02/15/20 01/15/21 iron) tablet fluticasone propionate 50 1 spray INTRANASAL DAILY 02/15/20 01/15/21 mcg/actuation nasal spray,suspension (Allergy Relief (fluticasone)) Previous Rx's Medication Instructions Recorded hydrocortisone 2.5 % topical cream 1 applic [place] BID-QID PRN 30 Days 03/04/20 with perineal applicator #30 g norethindrone 1 mg-ethinyl 1 tab PO DAILY #84 tab 07/01/20 estradiol 35 mcg (21) tablet (Nortrel) norethindrone acetate 1 mg-ethinyl 1 tab PO DAILY #21 tab 08/09/20 estradiol 20 mcg tablet (Microgestin) sumatriptan succinate 25 mg tablet 25 mg PO ONCE PRN 30 Days #10 tab 09/24/20 omeprazole 20 mg capsule,delayed 20 mg PO DAILY 30 Days #30 cap 11/12/20 release ciprofloxacin HCl 500 mg tablet 500 mg PO BID #20 tab 01/15/21 (Cipro) tamsulosin 0.4 mg capsule (Flomax) 0.4 mg PO DAILY #7 cap 01/15/21 Allergies Allergy/AdvReac Type Severity Reaction Status Date / Time acetaminophen [From PERCOCET] Allergy Intermediate RASH Verified 01/15/21 17:01 oxycodone [Percocet] Allergy Intermediate rash Verified 01/15/21 17:01 Sulfa (Sulfonamide Allergy Intermediate RASH Verified 01/15/21 17:01 Antibiotics) [SULFA (SULFONAMIDE ANTIBIOTICS)] latex [LATEX] Allergy Mild RASH Verified 01/15/21 17:01 amoxicillin [Augmentin] AdvReac Intermediate diarrhea Verified 01/15/21 17:01 clavulanic acid [Augmentin] AdvReac Unknown diarrhea Verified 01/15/21 15:05 Review of Systems Review of Systems No fever no chills Positive abdominal pain in the right lower quadrant Yes all other systems are reviewed and are negative Physical Exam Vital Signs: Vital Signs: Last Vital Signs Temp 98.4 F 01/15/21 20:00 Pulse 76 01/15/21 20:00 Resp 14 01/15/21 20:00 BP 133/91 H 01/15/21 20:00 Pulse Ox 95 01/15/21 20:00 Body Mass Index 29.5 Appearance: Alert. Oriented X3. No acute distress. Eyes: Pupils equal, round and reactive to light. ENT: Pharynx normal. Neck: Normal inspection. Neck supple. No lymph nodes noted. No crepitus CVS: Normal heart rate and rhythm. Pulses normal. Normal S1 and S2 Respiratory: No respiratory distress. Breath sounds normal. No Wheezing. No rales Abdomen: Soft mild right lower quadrant tenderness no rebound or guarding No rigidity. No distention. good BS x4 Skin: Skin warm and dry. Normal skin color. Normal skin turgor. Extremities: No lower extremity edema. Neurovascular intact to all extremities. No Lacerations. No Rash Neuro: Oriented X 3. No motor deficit. No sensory deficit. Moving all extermities. No slurred speech MDM - Abdominal Pain MDM Narrative Medical decision making narrative: Patient's CT scan of the abdomen was grossly negative for any acute evidence of abscess no perforation. Patient has a history of allergies to sulfa. Had diarrhea to amoxicillin. We will go ahead and start patient on ciprofloxacin. Will have patient follow-up on an outpatient basis. Question early kidney infection. Currently in stable condition. Medical Records Attestation: I reviewed the patient's medical records. Lab Data Attestation: I reviewed the patient's lab results. Result diagrams: 01/15/21 18:15 01/15/21 18:15 Labs: Lab Results 01/15/21 01/15/21 01/15/21 Range/Units 18:15 18:15 18:23 WBC 6.2 (4.8-10.8) X10*3/uL RBC 4.11 L (4.20-5.50) X10*6/uL Hgb 13.5 (12.0-16.0) g/dl Hct 38.6 (37-47) % MCV 93.9 (80-98) fL MCH 32.8 (27.0-33.0) pg MCHC 35.0 (31.0-35.0) g/dl RDW 11.8 (11.0-16.0) % Plt Count 302 (160-400) X10*3/uL MPV 9.9 (9.4-12.3) fL Immature Gran % (Auto) 0.5 H (0.0-0.4) % Neut % (Auto) 52.9 (45-73) % Lymph % (Auto) 29.7 (20-40) % Concho % (Auto) 11.7 H (2-11) % Eos % (Auto) 4.7 H (0-4) % Baso % (Auto) 0.5 (0-2) % Lymph # (Auto) 1.8 (1.2-4.9) X10*3/uL Concho # (Auto) 0.7 (0.1-1.2) X10*3/uL Eos # (Auto) 0.3 (0.0-0.4) X10*3/uL Baso # (Auto) 0.0 (0.0-0.2) X10*3/uL Abs Immat Gran (auto) 0.03 (0.00-0.03) X10*3/uL Absolute Neuts (auto) 3.3 (2.0-8.3) X10*3/uL Absolute Nucleated RBC 0.000 (0.0-0.012) X10*3/uL Nucleated RBC % (auto) 0.0 (0.0-0.2) /100WBC Sodium 140 (135-145) mmol/L Potassium 4.0 (3.3-5.1) mmol/L Chloride 105 (96-108) mmol/L Carbon Dioxide 29 (22-29) mmol/L Anion Gap 10 L (12-20) BUN 9 (9-16) mg/dL Creatinine 1.05 (0.5-1.4) mg/dL Estim Creat Clear Calc 65.5 Estimated GFR 56 Random Glucose 106 (60-115) mg/dL Calcium 9.8 (8.4-10.2) mg/dL Total Bilirubin 0.3 (0.0-1.0) mg/dL AST 20 (5-31) U/L ALT 18 (0-31) U/L Alkaline Phosphatase 85 (39-117) U/L Total Protein 7.6 (6.5-8.0) g/dL Albumin 4.2 (3.5-5.0) g/dL Urine Color YELLOW Urine Appearance CLEAR Urine pH 6.0 (5.0-8.0) Ur Specific Randall <= 1.005 (1.005-1.025) Urine Protein NEG (NEG-TRACE) MG/DL Urine Glucose (UA) NEG (NEG) MG/DL Urine Ketones NEG (NEG) MG/DL Urine Blood NEG (NEG) Urine Nitrite NEG (NEG) Ur Leukocyte Esterase 3+ H (NEG) Urine RBC 0 (0) /HPF Urine WBC 1-4 (0-4) /HPF Ur Squamous Epith Cells 1+ /LPF Urine Bacteria TRACE /LPF Urine Test (NEGATIVE) 01/15/21 Range/Units 18:23 WBC (4.8-10.8) X10*3/uL RBC (4.20-5.50) X10*6/uL Hgb (12.0-16.0) g/dl Hct (37-47) % MCV (80-98) fL MCH (27.0-33.0) pg MCHC (31.0-35.0) g/dl RDW (11.0-16.0) % Plt Count (160-400) X10*3/uL MPV (9.4-12.3) fL Immature Gran % (Auto) (0.0-0.4) % Neut % (Auto) (45-73) % Lymph % (Auto) (20-40) % Concho % (Auto) (2-11) % Eos % (Auto) (0-4) % Baso % (Auto) (0-2) % Lymph # (Auto) (1.2-4.9) X10*3/uL Concho # (Auto) (0.1-1.2) X10*3/uL Eos # (Auto) (0.0-0.4) X10*3/uL Baso # (Auto) (0.0-0.2) X10*3/uL Abs Immat Gran (auto) (0.00-0.03) X10*3/uL Absolute Neuts (auto) (2.0-8.3) X10*3/uL Absolute Nucleated RBC (0.0-0.012) X10*3/uL Nucleated RBC % (auto) (0.0-0.2) /100WBC Sodium (135-145) mmol/L Potassium (3.3-5.1) mmol/L Chloride (96-108) mmol/L Carbon Dioxide (22-29) mmol/L Anion Gap (12-20) BUN (9-16) mg/dL Creatinine (0.5-1.4) mg/dL Estim Creat Clear Calc Estimated GFR Random Glucose (60-115) mg/dL Calcium (8.4-10.2) mg/dL Total Bilirubin (0.0-1.0) mg/dL AST (5-31) U/L ALT (0-31) U/L Alkaline Phosphatase (39-117) U/L Total Protein (6.5-8.0) g/dL Albumin (3.5-5.0) g/dL Urine Color Urine Appearance Urine pH (5.0-8.0) Ur Specific Randall (1.005-1.025) Urine Protein (NEG-TRACE) MG/DL Urine Glucose (UA) (NEG) MG/DL Urine Ketones (NEG) MG/DL Urine Blood (NEG) Urine Nitrite (NEG) Ur Leukocyte Esterase (NEG) Urine RBC (0) /HPF Urine WBC (0-4) /HPF Ur Squamous Epith Cells /LPF Urine Bacteria /LPF Urine Test NEGATIVE (NEGATIVE) Discharge Plan Discharge Clinical Impression: Pyelonephritis Patient Disposition: Home, Self-Care Instructions: Kidney Infection (ED) Prescriptions: New ciprofloxacin HCl [Cipro] 500 mg tablet 500 mg PO BID Qty: 20 RF: 0 tamsulosin [Flomax] 0.4 mg capsule 0.4 mg PO DAILY Qty: 7 RF: 0 No Action omeprazole 20 mg capsule,delayed release(DR/EC) 20 mg PO DAILY 30 Days Qty: 30 RF: 3 sumatriptan succinate 25 mg tablet 25 mg PO ONCE PRN (Reason: migraine headache) 30 Days Qty: 10 RF: 2 All Day Allergy (cetirizine) 10 mg capsule 10 mg PO DAILY RF: 0 fluticasone propionate [Allergy Relief (fluticasone)] 50 mcg/actuation spray,suspension 1 spray intranasal DAILY RF: 0 ferrous sulfate 325 mg (65 mg iron) tablet 325 mg PO DAILY RF: 0 ascorbate calcium (vitamin C) 500 mg tablet 500 mg PO DAILY RF: 0 hydrocortisone 2.5 % cream with perineal applicator 1 applic NJ BID-QID PRN (Reason: hemorrhoids) 30 Days Qty: 30 RF: 2 Nortrel 1/35 (21) 1-35 mg-mcg (21) tablet 1 tab PO DAILY Qty: 84 RF: 11 norethindrone ac-eth estradiol [Microgestin 1/20 (21)] 1-20 mg-mcg tablet 1 tab PO DAILY Qty: 21 RF: 11 Referrals: Rex Espino MD [Primary Care Provider] - 2 days PMF Past Medical History Attestation statement: The following information was validated with the patient. Medical History Acute anxiety Back pain Bronchial asthma Complex cyst of right ovary Complex ovarian cyst Depression Dysfunctional uterine bleeding EMG normal GERD (gastroesophageal reflux disease) Hemorrhoids Herpes genitalia History of COVID-19 History of migraine HNP (herniated nucleus pulposus) PPD positive Surgical History History of 3 sections History of bilateral tubal ligation History of colonoscopy History of esophagogastroduodenoscopy (EGD) Family History Family History Father Hyperlipidemia Colon cancer CVD (cardiovascular disease) Mother Diabetes mellitus Glaucoma Maternal Grandmother Diabetes mellitus HTN (hypertension) Maternal Aunt Breast cancer Social History Social History Housing: Condominium Alcohol intake: never Patient Tobacco Use Status: Never used Tobacco Second Hand Smoke Exposure: Yes Advance Directives: No Advance Directives Information Provided: Yes Patient : No Current occupational status: employed Gender identity: Female
[2021-01-15 18:54] LABS: Basophils Percent Auto 0.5 % (0-2); Eosinophils Absolute Auto 0.3 X10*3/uL (0.0-0.4); Eosinophils Percent Auto 4.7 % (0-4); Hematocrit 38.6 % (37-47); Hemoglobin 13.5 g/dl (12.0-16.0); Imm Gran Abs Auto 0.03 X10*3/uL (0.00-0.03); Imm Gran Pct Auto 0.5 % (0.0-0.4); Lymphocytes Absolute Auto 1.8 X10*3/uL (1.2-4.9); Lymphocytes Percent Auto 29.7 % (20-40); Mean Corpuscular Hemoglobin 32.8 pg (27.0-33.0); Mean Corpuscular Volume 93.9 fL (80-98); Mean Platelet Volume 9.9 fL (9.4-12.3); Monocytes Absolute Auto 0.7 X10*3/uL (0.1-1.2); Monocytes Percent Auto 11.7 % (2-11); Neutrophils Absolute Auto 3.3 X10*3/uL (2.0-8.3); Neutrophils Percent Auto 52.9 % (45-73); Platelet Count 302 X10*3/uL (160-400); Red Blood Count 4.11 X10*6/uL (4.20-5.50); Red Cell Distribution Width 11.8 % (11.0-16.0); White Blood Count 6.2 X10*3/uL (4.8-10.8)
[2021-01-15 18:56] LABS: UPreg QC Valid YES; Urine Pregnancy NEGATIVE (NEGATIVE)
[2021-01-15] MEDS: Ketorolac Tromethamine 15 MG/ML VIAL 30 MG IVPUSH (19:01)
--- NOTE | 2021-01-15 19:03 | PC.NURSE ---
IV established, pt medicated per JUL. VSS. Pt aware of plan for CT.
--- NOTE | 2021-01-15 19:27 | PC.NURSE ---
Pt off to CT on hospital bed.
[2021-01-15] MEDS: iohexoL 350 MG/ML 100 ML INFUS..BTL IV (19:38)
--- NOTE | 2021-01-15 19:42 | PC.NURSE ---
Pt returns from CT at this time.
[2021-01-15 20:00] VITALS: BP 133/91; PULSE 76; RESP 14; TEMP 36.9; O2SAT 95
[2021-01-15 20:48] VITALS: BP 140/83; PULSE 66; RESP 16
[2021-01-15] MEDS: levoFLOXacin 500 MG TABLET PO (20:48)
--- NOTE | 2021-01-15 20:52 | PC.NURSE ---
Medicated per MAR. IV removed, medicated per MAR. Provided with DC paperwork.
== END 2021-01-15 21:06 | disposition home or self-care (01) ==
PROVIDERS: Emergency Provider Emergency Medicine Emergency Medical Services; PCP Internal Medicine
DX: N10 Acute pyelonephritis (principal); R10.31 Right lower quadrant pain; Z79.899 Other long term (current) drug therapy
CPT/HCPCS: 36415; 74177; 80053; 81001; 81025; 85025; 87086; 96374; 99284; J1885; Q9967

== ENCOUNTER → 2021-01-23 10:37 | Outpatient (BNVA) | payer OTHER, SELFPAY | PROVIDERS: PCP Internal Medicine; Referring Provider Internal Medicine; Visit Provider Surgery | DX: K64.8 Other hemorrhoids (principal) | CPT/HCPCS: 46600 ==

== ENCOUNTER 2021-02-07 10:04 | Outpatient (REF) | payer OTHER, SELFPAY ==
[2021-02-08 10:34] LABS: CT PCR NOT DETECTED (Not Detect.); NG PCR NOT DETECTED (Not Detect.)
[2021-02-09 14:34] LABS: BV Int Neg Control Negative (Negative); BV Int Pos Control Positive (Positive)
== END 2021-02-07 10:05 | disposition home or self-care (01) ==
LOC: HO.LAB 10:04
PROVIDERS: PCP Internal Medicine; Visit Provider Advanced Practice Midwife
DX: Z01.419 Encounter for gynecological examination (general) (routine) without abnormal findings (principal); B37.3 Candidiasis of vulva and vagina; Z79.899 Other long term (current) drug therapy; Z20.2 Contact with and (suspected) exposure to infections with a predominantly sexual mode of transmission
CPT/HCPCS: 87480; 87491; 87510; 87591; 87660

== ENCOUNTER 2021-04-29 05:58 | Day surgery (SDC) | payer OTHER, SELFPAY ==
[2021-04-23 14:04] VITALS: BMI 29.7
[2021-04-29] VITALS (12 sets, daily range): BP systolic 123–140; BP diastolic 62–91; PULSE 72–96; RESP 14–18; TEMP 36.1–36.3; O2SAT 97–100
[2021-04-29] MEDS: Lactated Ringers 1,000 ML 80 ML IVCONT (06:35)
--- NOTE | 2021-04-29 07:07 | HO.ANESPROP2 ---
HPI - Anesthesia Eval Consult details Narrative: 50 F for EUA and hemorrhoidectomy PMFSH Active Problems Active Problems: All Active Problems (Updated 04/23/21 @ 14:08 by Leticia Vela, RN) Epigastric pain (Acute) Family history of colon cancer in father (Acute) Hemorrhoids, internal, with bleeding (Acute) Menorrhagia (Acute) Migraine headache (Acute) Encounter for general adult medical examination with abnormal findings (Acute) Muscle cramp (Acute) Right lower quadrant pain (Acute) Hospital discharge follow-up (Acute) Pyelonephritis (Acute) Stress incontinence (Acute) Yeast infection involving the vagina and surrounding area (Acute) Hemorrhoids with complication (Acute) GERD (gastroesophageal reflux disease) (Acute) Hemorrhoids (Acute) Past Medical History Medical History (Updated 04/23/21 @ 14:08 by Leticia Vela RN) Acute anxiety Back pain Bronchial asthma Complex cyst of right ovary Complex ovarian cyst Depression Dysfunctional uterine bleeding EMG normal GERD (gastroesophageal reflux disease) Hemorrhoids Hemorrhoids with complication Herpes genitalia History of COVID-19 History of migraine HNP (herniated nucleus pulposus) Hx of insomnia PPD positive Functional capacity: independent ambulation Family History Family History Father Hyperlipidemia Colon cancer CVD (cardiovascular disease) Mother Diabetes mellitus Glaucoma Maternal Grandmother Diabetes mellitus HTN (hypertension) Maternal Aunt Breast cancer Family history of problems with anesthesia: No Surgical History Surgical History History of 3 sections History of bilateral tubal ligation History of colonoscopy History of esophagogastroduodenoscopy (EGD) History of Problems with Anesthesia: No Social History Social History Housing: Condominium Alcohol intake: never Patient Tobacco Use Status: Never used Tobacco Second Hand Smoke Exposure: Yes Use of substances other than those prescribed or required for medical reasons: No Are you DNR?: No Advance Directives: No Advance Directives Information Provided: Yes Current occupational status: employed Gender identity: Female Meds Allergies Allergy/AdvReac Type Severity Reaction Status Date / Time acetaminophen [From PERCOCET] Allergy Intermediate RASH Verified 02/07/21 10:35 oxycodone [Percocet] Allergy Intermediate rash Verified 02/07/21 10:35 Sulfa (Sulfonamide Allergy Intermediate RASH Verified 02/07/21 10:35 Antibiotics) [SULFA (SULFONAMIDE ANTIBIOTICS)] latex [LATEX] Allergy Mild RASH Verified 02/07/21 10:35 Influenza Virus Vaccines Allergy Shortness Verified 04/23/21 14:10 of Breath amoxicillin [Augmentin] AdvReac Intermediate diarrhea Verified 02/07/21 10:35 clavulanic acid [Augmentin] AdvReac Unknown diarrhea Verified 01/23/21 10:45 Home Medications Medication Instructions Recorded Confirmed Last Taken Type ascorbate calcium (vitamin C) 500 500 mg PO DAILY 02/15/20 02/07/21 Unknown History mg tablet cetirizine 10 mg capsule (All Day 10 mg PO DAILY 02/15/20 02/07/21 Unknown History Allergy (cetirizine)) ferrous sulfate 325 mg (65 mg 325 mg PO DAILY 02/15/20 02/07/21 Unknown History iron) tablet Probiotic 0.5 mg PO DAILY 04/23/21 04/23/21 Unknown History biotin 2,500 mcg capsule 2,500 mcg PO DAILY 04/23/21 04/23/21 Unknown History cholecalciferol (vitamin D3) 50 50 mcg PO DAILY 04/23/21 04/23/21 Unknown History mcg (2,000 unit) capsule (Vitamin D3) potassium 99 mg tablet 99 mg PO Q OTHER DAY 04/23/21 04/23/21 Unknown History Exam Exam Date and Time: April 29, 2021 0707 Height,Weight and Vital Signs: Height 5 ft 4 in Weight 78.471 kg Last Vital Signs Temp 97 F 04/29/21 06:07 Pulse 89 04/29/21 06:07 Resp 18 04/29/21 06:07 BP 128/83 04/29/21 06:07 Pulse Ox 97 04/29/21 06:07 Airway Mallampati Class: II TM Dist: >3cm Neck ROM: Full Loose/Missing/Broken Teeth: Yes Heart: rrr Lungs: bl breath sounds Assessment and Plan Assessment Anesthesia Assessment: Anesthesia Plan Discussed Final Anesthetic Review Family History of Problems with Anesthesia: No History of Problems with Anesthesia: No NPO: Yes ASA Class: II Final Preanesthetic Review: Meds/Allgs Chart Reviewed Patient Risk: Intermediate Procedure Risk: Intermediate Anesthetic Plan Anesthetic Plan: GA Disposition: Standard PACU
--- NOTE | 2021-04-29 07:19 | MHC.SHP ---
Pre-Procedural Eval Section A Date of Service: 04/29/21 The patient is an INPATIENT: No Section B Chief Complaint: Hemorrhoids with complication Details of Present Illness: has painful bleeding hemorrhoids Relevant Social History: None Present Medications: see Short Stay Collaborative assessment Medical History: Significant History (GERD, migraine) History of Previous Operations: Relevant previous surgery/procedure and date(s) Allergies: Allergies Allergy/AdvReac Type Severity Reaction Status Date / Time acetaminophen [From PERCOCET] Allergy Intermediate RASH Verified 02/07/21 10:35 oxycodone [Percocet] Allergy Intermediate rash Verified 02/07/21 10:35 Sulfa (Sulfonamide Allergy Intermediate RASH Verified 02/07/21 10:35 Antibiotics) [SULFA (SULFONAMIDE ANTIBIOTICS)] latex [LATEX] Allergy Mild RASH Verified 02/07/21 10:35 Influenza Virus Vaccines Allergy Shortness Verified 04/23/21 14:10 of Breath amoxicillin [Augmentin] AdvReac Intermediate diarrhea Verified 02/07/21 10:35 clavulanic acid [Augmentin] AdvReac Unknown diarrhea Verified 01/23/21 10:45 Review of Systems Sugical H&P ROS: Negative: Constitution, Cardiovascular, Respiratory, Neurological, Psychiatric, Hem-Onc, Allergic/Immunologic, Gastrointestinal, Genitourinary, Musculoskeletal, Integumentary, Endocrine and Eyes/Ears/Nose/Throat Exam Surgical H&P Exam: Normal: HEENT, Normal: Heart, Normal: Lungs, Normal: Extremities, Normal: Abdomen, Normal: Skin and Normal: Neurological Exam Comment: mixed hemorrhoids, L and R Plan Diagnosis/Plan: Unchanged I have reviewed the history and physical and performed a pertinent physical examination on my patient. No changes have occurred unless specified.
--- NOTE | 2021-04-29 08:16 | P.OP_ITS ---
Operative Note Operative Note Date of Service: 04/29/21 Narrative: Preop diagnosis: Internal and external hemorrhoids with pain and bleeding Postop diagnosis: The same Procedure: Exam under anesthesia, hemorrhoidectomy Surgeon: Niels Suh MD The patient is a 50-year-old female with chronic problems with her hemorrhoids described as frequent pain episodes, swelling and bleeding. She was noted to have bulky internal and external columns on the left and right side. She u nderstood the technique of hemorrhoidectomy as well as the risks, benefits, and alternatives . She was brought to the operating room and placed in prone richy-knife position under general anesthesia via endotracheal tube. The buttocks were retracted with wide tape laterally. The perianal area was prepped and draped in the usual sterile fashion. A surgical time-out was done. The patient received Cefotan 2 g IV preoperatively . I infiltrated the perianal area with lidocaine 1%.Examination of the anal orifice revealed bulky external hemorrhoids on the left and right side. I inserted abuse Gomez retractor and examined the anal canal circumferentially. Again, this mixed hemorrhoidal columns noted on both the left and right side. There were no other lesions seen. There was no fissure or any ulceration I applied a Chacko grasper at the hemorrhoidal column on the left to retract this. I made a [id number]-[id number]-twttt stitch at the pedicle proximal to the dentate line using a 3-0. I made an incision around this hemorrhoidal column to the perianal skin using blade 15. I excised this hemorrhoidal column above the plane of the sphincters along this incision using scissors all the way to the pedicle. I closed the incision with a running chromic 3-0 stitch. Additional hemostatic [id number]-[id number] sutures were placed I then retracted the using chromic 3-0. I made an incision around this hemorrhoidal column all the to the perianal skin using a blade 15. And excised this hemorrhoidal column above the plane of sphincters using scissors. I closed this incision with a running chromic 3-0 stitch. Additional hemostatic sutures were placed . Once hemostasis was ensured, proceeded to infiltrate the perianal area with Marcaine 0.5% for postop analgesia and the procedure was completed. The patient tolerated procedure well. There were no complications noted. Initial and final counts of sponges and instruments were correct. Estimated blood loss was about 25 cc. The patient was extubated without difficulty and transferred to the recovery room with stable vital signs.
--- NOTE | 2021-04-29 08:20 | P.BOP_ITS ---
Brief Operative Note Date of Service: 04/29/21 Pre-op diagnosis: internal and external columns with pain and bleeding Post-op diagnosis: same Procedure: EUA, hemorrhoidectomy x2 Surgeon: Niels Suh MD Anesthesia: GETA Was an Kicking Machine Operator used for this Procedure?: No Estimated blood loss (mL): 25 Pathology: other ( hemorrhoids) Condition: stable Disposition: PACU
[2021-04-29] MEDS: fentaNYL citrate/PF 100 MCG/2 ML VIAL 25 MCG IVPUSH ×4 (08:40→08:55)
[2021-04-29] MEDS: Ketorolac Tromethamine 30 MG/ML VIAL 15 MG IVPUSH (08:51)
[2021-04-29] MEDS: traMADoL HCL 50 MG TABLET PO (08:53)
== END 2021-04-29 10:42 | disposition home or self-care (01) ==
PROVIDERS: PCP Internal Medicine; Visit Provider Surgery
PROC: (CPT 46260; principal; 2021-04-29 07:30)
DX: K64.8 Other hemorrhoids (principal); K64.4 Residual hemorrhoidal skin tags; K21.9 Gastro-esophageal reflux disease without esophagitis; F41.8 Other specified anxiety disorders; J45.909 Unspecified asthma, uncomplicated; Z79.51 Long term (current) use of inhaled steroids; Z79.899 Other long term (current) drug therapy; Z88.1 Allergy status to other antibiotic agents; Z88.2 Allergy status to sulfonamides; Z88.8 Allergy status to other drugs, medicaments and biological substances; Z91.040 Latex allergy status; R76.11 Nonspecific reaction to tuberculin skin test without active tuberculosis; Z86.16 Personal history of COVID-19
CPT/HCPCS: 46260; 88304; J1100; J1885; J2250; J2405; J3010

== ENCOUNTER → 2021-05-21 11:02 | Outpatient (BNVA) | payer OTHER, SELFPAY | PROVIDERS: PCP Internal Medicine; Referring Provider Internal Medicine; Visit Provider Surgery ==

== ENCOUNTER → 2021-05-26 09:22 | Outpatient (BNVA) | payer OTHER, SELFPAY | PROVIDERS: Referring Provider Internal Medicine; Visit Provider Internal Medicine Gastroenterology ==

== ENCOUNTER 2021-07-01 09:37 | Outpatient (REF) | payer OTHER, SELFPAY ==
--- NOTE | ~2021-07-01 | XR_ITS ---
EXAMINATION: XR CHEST CLINICAL INFORMATION: Other specified symptoms and signs involving the respiratory system COMPARISON: Previous chest x-ray May 2018 TECHNIQUE: 2 views of the chest were obtained. FINDINGS: No significant abnormality is noted involving the heart, lungs, mediastinum, bony thorax or soft tissues. XR/XR chest 2V IMPRESSION: Unremarkable examination.
[2021-07-01 11:41] LABS: MANUAL DIFF FLAG NO
[2021-07-01 11:50] LABS: Basophils Percent Auto 0.3 % (0-2); Eosinophils Absolute Auto 0.3 X10*3/uL (0.0-0.4); Hematocrit 36.9 % (37.0-47.0); Hemoglobin 12.7 g/dl (12.0-16.0); Imm Gran Abs Auto 0.02 X10*3/uL (0.00-0.03); Imm Gran Pct Auto 0.3 % (0.0-0.4); Lymphocytes Absolute Auto 1.8 X10*3/uL (1.2-4.9); Lymphocytes Percent Auto 27.1 % (20-40); Mean Corpuscular HGB Conc 34.4 g/dl (31.0-35.0); Mean Corpuscular Hemoglobin 32.4 pg (27.0-33.0); Mean Corpuscular Volume 94.1 fL (80.0-98.0); Monocytes Absolute Auto 0.6 X10*3/uL (0.1-1.2); Monocytes Percent Auto 8.8 % (2-11); Neutrophils Percent Auto 58.5 % (45-73); Platelet Count 289 X10*3/uL (160-400); Red Blood Count 3.92 X10*6/uL (4.20-5.50); Red Cell Distribution Width 12.4 % (11.0-16.0); White Blood Count 6.8 X10*3/uL (4.8-10.8)
[2021-07-01 12:25] LABS: Ferritin 27 ng/mL (10-250); TSH reflex Free T4 2.83 uIU/mL (0.32-4.0); Vitamin D 25-OH Total 46.4 ng/mL (>30)
[2021-07-01 12:29] LABS: Vitamin B12 772 pg/mL (200-900)
== END 2021-07-01 09:38 | disposition home or self-care (01) ==
LOC: HO.HMGCX 09:37
PROVIDERS: PCP Internal Medicine; Visit Provider Internal Medicine Gastroenterology
DX: R09.89 Other specified symptoms and signs involving the circulatory and respiratory systems (principal); R05.9 Cough, unspecified; R68.83 Chills (without fever); K21.9 Gastro-esophageal reflux disease without esophagitis
CPT/HCPCS: 36415; 71046; 82306; 82607; 82728; 84443; 85025

== ENCOUNTER 2021-10-31 12:03 | Outpatient (REF) | payer OTHER, SELFPAY ==
[2021-10-31 13:47] LABS: MANUAL DIFF FLAG NO
[2021-10-31 13:49] LABS: Basophils Percent Auto 0.6 % (0-2); Eosinophils Absolute Auto 0.2 X10*3/uL (0.0-0.4); Eosinophils Percent Auto 4.7 % (0-4); Hematocrit 39.5 % (37.0-47.0); Hemoglobin 13.6 g/dl (12.0-16.0); Imm Gran Abs Auto 0.02 X10*3/uL (0.00-0.03); Imm Gran Pct Auto 0.4 % (0.0-0.4); Lymphocytes Absolute Auto 1.8 X10*3/uL (1.2-4.9); Lymphocytes Percent Auto 37.6 % (20-40); Mean Corpuscular HGB Conc 34.4 g/dl (31.0-35.0); Mean Corpuscular Hemoglobin 32.5 pg (27.0-33.0); Mean Corpuscular Volume 94.3 fL (80.0-98.0); Mean Platelet Volume 10.7 fL (9.4-12.3); Monocytes Absolute Auto 0.6 X10*3/uL (0.1-1.2); Monocytes Percent Auto 11.5 % (2-11); Neutrophils Absolute Auto 2.2 x10*3/uL (2.0-8.3); Neutrophils Percent Auto 45.2 % (45-73); Platelet Count 270 X10*3/uL (160-400); Red Blood Count 4.19 X10*6/uL (4.20-5.50); Red Cell Distribution Width 12.3 % (11.0-16.0); White Blood Count 4.9 X10*3/uL (4.8-10.8)
[2021-10-31 14:02] LABS: Alanine Aminotransferase 18 U/L (0-31); Alkaline Phosphatase 97 U/L (39-117); Anion Gap 11 (12-20); Aspartate Amino Transferase 17 U/L (5-31); Bilirubin Total 0.4 mg/dL (0.0-1.0); Blood Urea Nitrogen 12 mg/dL (9-16); Calcium 9.4 mg/dL (8.4-10.2); Chloride 107 mmol/L (96-108); Cholesterol 246 mg/dL; Estimated Glomerular Filt Rate > 60; Glucose Fasting 98 mg/dL (60-99); HDL Cholesterol 60 mg/dL; LDL Cholesterol Calculated 171 mg/dl; Potassium 4.2 mmol/L (3.3-5.1); Sodium 139 mmol/L (135-145); Total Protein 7.2 g/dL (6.5-8.0); Triglycerides 75 mg/dL
[2021-10-31 14:03] LABS: Carbon Dioxide 25 mmol/L (22-29)
[2021-10-31 14:26] LABS: Ferritin 28 ng/mL (10-250); TSH reflex Free T4 1.51 uIU/mL (0.32-4.0)
[2021-11-05 17:33] LABS: Vitamin D 25-OH, D2 <4 ng/mL; Vitamin D 25-OH, D3 40 ng/mL; Vitamin D 25-OH, Total 40 ng/mL (30-100)
== END 2021-10-31 12:04 | disposition home or self-care (01) ==
LOC: HO.HMGCLDS 12:03
PROVIDERS: Visit Provider Internal Medicine
DX: Z00.01 Encounter for general adult medical examination with abnormal findings (principal); R10.13 Epigastric pain; R23.8 Other skin changes; F41.8 Other specified anxiety disorders
CPT/HCPCS: 36415; 80053; 80061; 82306; 82728; 84443; 85025

== ENCOUNTER 2021-12-18 08:26 | Outpatient (REF) | payer OTHER, SELFPAY ==
--- NOTE | ~2021-12-18 | US_ITS ---
EXAMINATION: US PELVIS CLINICAL INFORMATION: Pelvic pain. Right lower quadrant pain. COMPARISON: None TECHNIQUE: Ultrasound of the pelvis is performed using both transabdominal and transvaginal transducers along with Doppler. Transvaginal imaging is performed due to inadequate visualization transabdominally. FINDINGS: UTERUS: The uterus is retroverted, retroflexed and measures 9.52 cm in length, 4.37 cm in AP and 6.5 cm in transverse dimension. The double wall endometrial thickness is 0.43 cm. There is trace free fluid within the endometrial canal. The uterus is smooth in contour and has normal myometrial echogenicity. No visible fibroid. ADNEXA: Both ovaries are visualized. There is normal color flow to the adnexa. There is no ovarian torsion. There is no pelvic ascites or fluid collection. Right ovary measures 4.14 x 2.40 x 3.58 cm. There is an anechoic cyst measuring 2.1 x 2.3 x 2.0 cm. Previously right ovary measured 3.9 x 1.7 x 2.5 cm and cyst measured 1.4 x 1.4 x 2.1 cm. Left ovary measures 3.18 x 1.35 x 1.84 cm. No focal lesion seen. Previously it measured 3.2 x 2.6 x 3.3 cm. Trace amount of free fluid in the cul-de-sac. US/US pelvic and transvaginal IMPRESSION: Retroverted and retroflexed uterus. Right ovarian cyst measuring 2.1 x 2.3 x 2.0 cm.
== END 2021-12-18 08:27 | disposition home or self-care (01) ==
LOC: HO.HMGCX 08:26
PROVIDERS: PCP Internal Medicine; Visit Provider Advanced Practice Midwife
DX: R10.2 Pelvic and perineal pain (principal)
CPT/HCPCS: 76830; 76856

== ENCOUNTER 2022-01-13 10:04 | Outpatient (REF) | payer OTHER, SELFPAY ==
[2022-01-14 15:50] LABS: BV Int Neg Control Negative (Negative); BV Int Pos Control Positive (Positive)
== END 2022-01-13 10:05 | disposition home or self-care (01) ==
LOC: HO.LNP 10:04
PROVIDERS: PCP Internal Medicine; Visit Provider Advanced Practice Midwife
DX: Z32.02 Encounter for pregnancy test, result negative (principal); N89.8 Other specified noninflammatory disorders of vagina
CPT/HCPCS: 81025; 87480; 87510; 87660

== ENCOUNTER → 2022-01-20 09:08 | Outpatient (BNVA) | payer OTHER, SELFPAY | PROVIDERS: Visit Provider Advanced Practice Midwife | DX: Z32.02 Encounter for pregnancy test, result negative (principal); N93.9 Abnormal uterine and vaginal bleeding, unspecified | CPT/HCPCS: 58100; 81025 ==

== ENCOUNTER 2022-02-18 09:00 | Outpatient (REF) | payer OTHER, SELFPAY | END 2022-02-18 09:01 | disposition home or self-care (01) | LOC: HO.LNP 09:00 | PROVIDERS: Visit Provider Obstetrics & Gynecology | DX: N93.9 Abnormal uterine and vaginal bleeding, unspecified (principal) | CPT/HCPCS: 58100; 88305 ==

== ENCOUNTER 2022-03-03 | Outpatient (REF) | payer OTHER, SELFPAY ==
--- NOTE | ~2022-03-03 | XR_ITS ---
EXAMINATION: XR KNEE, RIGHT CLINICAL INFORMATION: Pain COMPARISON: None TECHNIQUE: Three views of the right knee. FINDINGS: Bone alignment is normal. No fracture or dislocation. Normal femoral tibial joints. Small osteophytes at the patellofemoral joint. Small osteophyte at the quadriceps tendon insertion to the patella. No joint effusion. XR/XR knee RT 3V IMPRESSION: Mild degenerative changes at the patellofemoral joint.
== END 2022-03-03 00:01 | disposition home or self-care (01) ==
LOC: HO.HOSX
PROVIDERS: Visit Provider Physician Assistant
DX: M25.561 Pain in right knee (principal)
CPT/HCPCS: 73562

== ENCOUNTER 2022-03-19 08:50 | Outpatient (REF) | payer OTHER, SELFPAY | END 2022-03-19 08:51 | disposition home or self-care (01) | LOC: HO.LNP 08:50 | PROVIDERS: Visit Provider Obstetrics & Gynecology | DX: N93.9 Abnormal uterine and vaginal bleeding, unspecified (principal); Z32.02 Encounter for pregnancy test, result negative | CPT/HCPCS: 58100; 81025; 88305 ==

== ENCOUNTER 2022-04-08 10:01 | Outpatient (REF) | payer OTHER, SELFPAY ==
[2022-04-08 16:58] LABS: CT PCR NOT DETECTED (Not Detect.); NG PCR NOT DETECTED (Not Detect.)
[2022-04-09 09:33] LABS: BV Int Neg Control Negative (Negative); BV Int Pos Control Positive (Positive)
== END 2022-04-08 10:02 | disposition home or self-care (01) ==
LOC: HO.LNP 10:01
PROVIDERS: Visit Provider Obstetrics & Gynecology
DX: N76.0 Acute vaginitis (principal); N93.9 Abnormal uterine and vaginal bleeding, unspecified
CPT/HCPCS: 87480; 87491; 87510; 87591; 87660

== ENCOUNTER 2022-05-11 09:25 | Outpatient (REF) | payer OTHER, SELFPAY ==
--- NOTE | ~2022-05-11 | MM_ITS ---
EXAMINATION: MM SCREENING DIGITAL BREAST TOMOSYNTHESIS, BILATERAL CLINICAL INFORMATION: Screening. Asymptomatic. COMPARISON: Mammography: May 24, 2020 and studies dating back to January 02, 2016 TECHNIQUE: Digital breast tomosynthesis is performed in both the craniocaudal and mediolateral oblique views along with computer-aided detection (CAD). Synthesized 2D images are generated from the tomosynthesis. FINDINGS: The breasts are extremely dense, which lowers the sensitivity of mammography (ACR BI-RADS breast composition Category d). There are no significant masses, abnormal calcifications, or other abnormalities. MM/MM tomosynthesis screening BI IMPRESSION: No significant changes from prior exam. ASSESSMENT: BI-RADS 1: Negative RECOMMENDATION: Routine annual mammography screening. This patient's information was entered into a reminder system with a target due date for their next mammogram.
== END 2022-05-11 09:26 | disposition home or self-care (01) ==
LOC: HO.MAMMO 09:25
PROVIDERS: PCP Internal Medicine; Visit Provider Internal Medicine
DX: Z12.31 Encounter for screening mammogram for malignant neoplasm of breast (principal)
CPT/HCPCS: 77063; 77067

== ENCOUNTER 2022-11-04 09:01 | Outpatient (REF) | payer BC, SELFPAY ==
[2022-11-10 15:09] LABS: Vitamin D 25-OH, D2 <4 ng/mL; Vitamin D 25-OH, D3 31 ng/mL; Vitamin D 25-OH, Total 31 ng/mL (30-100)
== END 2022-11-04 09:02 | disposition home or self-care (01) ==
LOC: HO.HMGCLDS 09:01
PROVIDERS: PCP Internal Medicine; Visit Provider Internal Medicine
DX: Z00.01 Encounter for general adult medical examination with abnormal findings (principal); E66.09 Other obesity due to excess calories; G43.909 Migraine, unspecified, not intractable, without status migrainosus; K21.9 Gastro-esophageal reflux disease without esophagitis; R42 Dizziness and giddiness; E78.9 Disorder of lipoprotein metabolism, unspecified
CPT/HCPCS: 36415; 80053; 80061; 82306; 82607; 82728; 84443; 85025

== ENCOUNTER 2023-03-22 13:51 | Outpatient (AMB) | payer OTHER, SELFPAY ==
[2023-03-22 14:20] VITALS: BP 118/70; PULSE 76; TEMP 36.4; O2SAT 99; BMI 29.3
--- NOTE | 2023-03-22 14:20 | AM.OFFWIN_ITS ---
Intake Vital Signs 03/22/23 14:20 Height 5 ft 4 in Weight 171 lb BMI 29.3 BP 118/70 Blood Pressure Location Rt brachial Position Sitting Pulse 76 Pulse Source Pulse Oximeter Temp 97.6 F Temp Source Temporal Artery Scan Pulse Oximetry (%) 99 Oxygen Delivery Method Room Air Intake Visit Reasons: EST/chills, numbness in feet (lobby masked) Intake Note: pt is here for c.o chills with numbness in feet Patient Tobacco Use Status: Never used Tobacco Allergies acetaminophen [From PERCOCET] Allergy (Intermediate, Verified 03/22/23 14:55) RASH oxycodone [Percocet] Allergy (Intermediate, Verified 03/22/23 14:55) rash Sulfa (Sulfonamide Antibiotics) [SULFA (SULFONAMIDE ANTIBIOTICS)] Allergy (Intermediate, Verified 03/22/23 14:55) RASH latex [LATEX] Allergy (Mild, Verified 03/22/23 14:55) RASH Influenza Virus Vaccines Allergy (Verified 03/22/23 14:55) Shortness of Breath amoxicillin [Augmentin] Adverse Reaction (Intermediate, Verified 03/22/23 14:55) diarrhea clavulanic acid [Augmentin] Adverse Reaction (Unknown, Verified 03/22/23 14:55) diarrhea Do you need a note to return to daycare/school/sports/work: Yes HPI EST/chills, numbness in feet (lobby masked) HPI Details Patient presents for a sick visit. Reporting symptoms of sinus congestion, sore throat and difficulty swallowing. Low-grade fever. No family member is sick. No recent travel. Patient reports symptoms of malaise and fatigue. [facility] Medical History Acute anxiety Back pain Bronchial asthma Depression Dysfunctional uterine bleeding EMG normal GERD (gastroesophageal reflux disease) Hemorrhoids Hemorrhoids with complication Herpes genitalia History of COVID-19 HNP (herniated nucleus pulposus) Hx of insomnia IUD complication Migraine without aura PPD positive Surgical History History of 3 sections History of bilateral tubal ligation History of colonoscopy History of endometrial ablation History of esophagogastroduodenoscopy (EGD) History of hemorrhoidectomy Family History Father Hyperlipidemia Colon cancer CVD (cardiovascular disease) Mother Diabetes mellitus Glaucoma Maternal Grandmother Diabetes mellitus HTN (hypertension) Maternal Aunt Breast cancer Social History Housing: Condominium Alcohol intake: never Patient Tobacco Use Status: Never used Tobacco e-Cigarette/Vaping Use: Never Used Second Hand Smoke Exposure: Yes Current occupational status: employed Current occupation: [employer] Gender identity: Female Cognitive needs: No Hearing needs: No Vision needs: Yes Female Reproductive History Menstrual Age of Menarche: 13 Physical Exam Vital Signs: Last Vital Signs Temp 97.6 F 03/22/23 14:20 Pulse 76 03/22/23 14:20 BP 118/70 03/22/23 14:20 Pulse Ox 99 03/22/23 14:20 Oxygen Delivery Method Room Air 03/22/23 14:20 BMI result Body Mass Index 29.3 Const General: cooperative and healthy appearing Nutritional Appearance: well nourished Orientation/consciousness: patient oriented x3 Limitations: no limitations HEENT Head: Yes normal to inspection Eyes General: appearance normal, both eyes and all related structures Neck Neck: Yes normal visual inspection Chest Chest palpation & inspection: normal palpation of entire chest wall Resp Effort & Inspection: normal respiratory effort Neuro General: patient oriented x3 Assessment & Plan Assessment & Plan (1) Upper respiratory tract infection: Code(s): J06.9 - Acute upper respiratory infection, unspecified Plan: Antibiotics ordered. Increase fluid intake. Tylenol for aches and pains. If symptoms worsen, follow-up here for a recheck. COVID testing ordered. Coding Level of Care Code Est Pt Level 3 (02505) Diagnoses Upper respiratory tract infection J06.9
== END 2023-03-22 15:21 | disposition home or self-care (01) ==
PROVIDERS: PCP Internal Medicine; Visit Provider Internal Medicine
DX: J06.9 Acute upper respiratory infection, unspecified (principal)
CPT/HCPCS: 99213

== ENCOUNTER 2023-03-22 15:00 | Outpatient (REF) | payer OTHER, SELFPAY ==
[2023-03-22 16:22] LABS: Alanine Aminotransferase 19 U/L (0-31); Albumin Level 4.4 g/dL (3.5-5.0); Alkaline Phosphatase 107 U/L (39-117); Anion Gap 8 (12-20); Aspartate Amino Transferase 22 U/L (5-31); Bilirubin Direct 0.1 mg/dL (0.0-0.5); Bilirubin Total 0.3 mg/dL (0.0-1.0); Blood Urea Nitrogen 8 mg/dL (9-16); Calcium 10.2 mg/dL (8.4-10.2); Carbon Dioxide 31 mmol/L (22-29); Chloride 106 mmol/L (96-108); Cholesterol 262 mg/dL (<200); Estimated Glomerular Filt Rate > 60; Glucose Random 100 mg/dL (60-115); HDL Cholesterol 67 mg/dL (>40); LDL Cholesterol Calculated 181 mg/dL (<100); Potassium 4.1 mmol/L (3.3-5.1); Sodium 141 mmol/L (135-145); Total Protein 7.9 g/dL (6.5-8.0); Triglycerides 70 mg/dL (<150)
[2023-03-22 16:23] LABS: Hematocrit 42.8 % (37.0-47.0); Hemoglobin 14.4 g/dl (12.0-16.0); Mean Corpuscular HGB Conc 33.6 g/dl (31.0-35.0); Mean Corpuscular Hemoglobin 31.6 pg (27.0-33.0); Mean Corpuscular Volume 93.9 fL (80.0-98.0); Mean Platelet Volume 10.5 fL (9.4-12.3); Platelet Count 265 X10*3/uL (160-400); Red Blood Count 4.56 X10*6/uL (4.20-5.50); Red Cell Distribution Width 11.8 % (11.0-16.0); White Blood Count 4.7 X10*3/uL (4.8-10.8)
== END 2023-03-22 15:01 | disposition home or self-care (01) ==
LOC: HO.HMGCLDS 15:00
PROVIDERS: PCP Internal Medicine; Visit Provider Internal Medicine
DX: J06.9 Acute upper respiratory infection, unspecified (principal); E78.00 Pure hypercholesterolemia, unspecified
CPT/HCPCS: 36415; 80048; 80061; 80076; 85027

== ENCOUNTER 2023-03-22 15:23 | Outpatient (REF) | payer OTHER, SELFPAY ==
[2023-03-22 16:55] LABS: Influenza A PCR NEGATIVE (Negative); Influenza B PCR NEGATIVE (Negative); Resp Syncy Virus RNA Qual PCR NEGATIVE (Negative); SARS COV2 PCR INHOUSE NEGATIVE (Negative)
== END 2023-03-22 15:24 | disposition home or self-care (01) ==
LOC: HO.LAB 15:23
PROVIDERS: Visit Provider Internal Medicine
DX: R43.9 Unspecified disturbances of smell and taste (principal); Z11.52 Encounter for screening for COVID-19
CPT/HCPCS: 0241U

== ENCOUNTER 2023-04-07 08:44 | Outpatient (AMB) | payer OTHER, SELFPAY ==
[2023-04-07 08:44] VITALS: BP 130/88; PULSE 84; O2SAT 99; BMI 28.9
--- NOTE | 2023-04-07 08:44 | A.OFFPC_ITS ---
Vital Signs 04/07/23 08:44 Height 5 ft 4 in Weight 168 lb 2 oz BMI 28.9 BP 130/88 Blood Pressure Location Lt brachial Position Sitting Pulse 84 Pulse Source Pulse Oximeter Pulse Oximetry (%) 99 Oxygen Delivery Method Room Air Intake Visit Reasons: 6m follow up Allergies acetaminophen [From PERCOCET] Allergy (Intermediate, Verified 04/07/23 08:44) RASH oxycodone [Percocet] Allergy (Intermediate, Verified 04/07/23 08:44) rash Sulfa (Sulfonamide Antibiotics) [SULFA (SULFONAMIDE ANTIBIOTICS)] Allergy (Intermediate, Verified 04/07/23 08:44) RASH latex [LATEX] Allergy (Mild, Verified 04/07/23 08:44) RASH Influenza Virus Vaccines Allergy (Verified 04/07/23 08:44) Shortness of Breath amoxicillin [Augmentin] Adverse Reaction (Intermediate, Verified 04/07/23 08:44) diarrhea clavulanic acid [Augmentin] Adverse Reaction (Unknown, Verified 04/07/23 08:44) diarrhea Medication List - Last Reconciled 04/07/23 by Rex Espino MD ascorbate calcium (vitamin C) 500 mg PO DAILY cholecalciferol (vitamin D3) (Vitamin D3) 50 mcg PO DAILY fluticasone propionate 50 mcg/actuation (Allergy Relief (fluticasone)) 1 spray intranasal DAILY 30 days norethindrone ac-eth estradiol 1-20 mg-mcg (Microgestin) 1 tab PO DAILY omeprazole 20 mg PO BID 90 days simethicone (Gas Relief (simethicone)) 125 mg PO TID PRN 30 days sumatriptan succinate 25 mg PO ONCE PRN 30 days Tobacco use date assessed: 04/07/23 Dental Screening Dental Screen Date: 04/07/23 Did you have a dental visit in the last 12 months?: No Did you have a dental problem in the last 6 months where you did not have access to dental care?: No Was dental information given to patient?: Patient has dentist HPI 6m follow up HPI Details Patient is a 52-year-old female came in today to discuss few medical problems, patient was last seen October of this year Patient tells me that she has been having tingling sometimes in her legs sometim es in her arm sometimes lips She does have a history of migraine headaches, has been having headaches as well associated with blurring of right vision. 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 She says that she can not take any time off because she need to make money she is a single parent and has a daughter to support. Patient is concerned that she is having cold intolerance she feels cold all the time. Symptoms her hand cramp up Patient is also asthmatic and is using no inhaler, complaining of a dated cough. She was initially seen in walk-in clinic with these symptoms and some labs were ordered Which I reviewed with the patient her LDL is 181 which we will address later There was no thyroid test ordered Patient also would like to check if she is going through menopause. I have placed a referral for patient to be evaluated by Neurology, however some of her symptoms are secondary to migraine. It is possible that patient might be having complicated migraine. She will be starting the inhaler to control her asthma symptoms I have added chest x-ray as well. Patient says that she had pneumonia last year and she had no symptoms. She is to return in couple of weeks to go over the reports and have a follow-up. [facility] Medical History IUD complication Migraine without aura Hx of insomnia Hemorrhoids with complication History of COVID-19 Hemorrhoids Dysfunctional uterine bleeding PPD positive Bronchial asthma HNP (herniated nucleus pulposus) EMG normal Back pain Depression Acute anxiety GERD (gastroesophageal reflux disease) Herpes genitalia Surgical History History of endometrial ablation History of hemorrhoidectomy History of colonoscopy History of esophagogastroduodenoscopy (EGD) History of bilateral tubal ligation History of 3 sections Family History Father Hyperlipidemia Colon cancer CVD (cardiovascular disease) Mother Diabetes mellitus Glaucoma Maternal Grandmother Diabetes mellitus HTN (hypertension) Maternal Aunt Breast cancer Social History Housing: Condominium Alcohol intake: never Comment: instrument, sharps, sponges count-1st count done by bry murrieta and lennie; Patient Tobacco Use Status: Never used Tobacco e-Cigarette/Vaping Use: Never Used Second Hand Smoke Exposure: Yes Current occupational status: employed 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 1. Little interest or pleasure in doing things: more than half the days 2. Feeling down, depressed, or hopeless: more than half the days 3. Trouble falling or staying asleep, or sleeping too much: more than half the days 4. Feeling tired or having little energy: more than half the days 5. Poor appetite or overeating: more than half the days 6. Feeling bad about yourself - or that you are a failure or have let yourself or your family down: more than half the days 7. Trouble concentrating on things, such as reading the newspaper or watching television: not at all 8. Moving or speaking so slowly that other people could have noticed. Or the opposite - being so fidgety or restless that you have been moving around a lot more than usual: not at all 9. Thoughts that you would be better off or of hurting yourself in some way: not at all Total score: 12 Depression Screening Interpretation: Positive Depression Screening Follow-up: Community Mental Health Worker F/U and Follow-up Visit Requested Depression Screening Done: Yes 03411 - PHQ-9 Billing: Yes Source: Developed by Drs. Shabbir Ruiz, Sophia Luis, Alvino Sellers and colleagues, with an educational jennifer from [employer]. Thrive Questionnaire Date Thrive assessed: 04/07/23 I am a: Patient What is your living situation today?: I have a steady place to live Within the past 12 months, did the food you bought not last and you didn't have the money to get more?: Sometimes True Within the past 12 months, did you worry whether your food would run out before you got money to buy more?: Often true Do you have trouble paying for medicines?: No Do you have trouble getting transportation to medical appointments?: No Do you have trouble paying your heating and electricity bill?: Yes Do you have trouble taking care of your child, family member or friend?: No Do you have trouble with day-to-day activities such as bathing, preparing meals, shopping, managing finances, etc.?: No Are you currently unemployed and looking for a job?: No Are you interested in more education?: Yes Please select the resources that you would like help with: Food, Utilities and Education Currently or been in a relationship where the following occur: no concerns reported AUDIT C Alcohol Use Questionnaire (AUDIT-C) 1. How often do you have a drink containing alcohol?: Never 3. How often do you have six or more drinks on one occasion?: Never Total Score: 0 Score Reviewed/Action Taken: Yes YAZMIN-7 AMB Questionnaire YAZMIN-7 Date YAZMIN - 7 assessed: 04/07/23 Feeling nervous, anxious, or on edge: 2 = More than half the days Not being able to stop or control worryin = Nearly every day Worrying too much about different things: 3 = Nearly every day Trouble relaxin = Nearly every day Being so restless that it is hard to sit still: 3 = Nearly every day Becoming easily annoyed or irritable: 3 = Nearly every day Feeling afraid as if something awful might happen: 3 = Nearly every day Total YAZMIN-7 score (0-4 normal; 5-9 mild; 10-14 moderate; 15-21 severe): 20 Source: Developed by Drs. Shabbir Ruiz, Sophia Luis, Alvino Sellers and colleagues, with an educational jennifer from [employer]. YAZMIN-7 Assessment Billing YAZMIN-7 Assessment Tool: YAZMIN-7 Assessment [id number] Review of Systems Const Denies chills, Denies excessive sweating, Denies fever(s) and Denies poor appetite Eyes Denies eye pain ENT Denies disequilibrium, Denies sore throat, Denies throat swelling and Denies tongue swelling Card Denies chest pain at rest, Denies radiating jaw, neck or arm pain and Denies paroxysmal nocturnal dyspnea Resp Denies hemoptysis GI Denies melena, Denies change in stool character, Denies coffee ground emesis and Denies vomiting Musc Reports as per HPI Skin/Breast Reports as per HPI Neuro Denies tremor(s) and Denies disequilibrium Endo Denies cold intolerance and Denies excessive sweating Aller/Immun Denies throat swelling and Denies tongue swelling Physical exam (Primary Care) Vital Signs: Last Vital Signs Pulse 84 04/07/23 08:44 BP 130/88 04/07/23 08:44 Pulse Ox 99 04/07/23 08:44 Oxygen Delivery Method Room Air 04/07/23 08:44 BMI result Body Mass Index 28.9 Tobacco/Smoking Status: Tobacco use Status Tobacco use date assessed 04/07/23 04/07/23 08:50 Patient Tobacco Use Status Never used Tobacco 04/07/23 08:50 e-Cigarette/Vaping Use Never Used 04/07/23 08:50 PHQ-9: PHQ-9 Score PHQ-9: Total score 12 04/07/23 09:12 Depression Screening Interpretation: Positive Depression Screening Follow-up: Community Mental Health Worker F/U and Follow-up Visit Requested Thrive Assessment: Date of Thrive Assessment Date Thrive assessed 04/07/23 04/07/23 09:12 Currently or been in a relationship where the following occur: no concerns reported Const General: cooperative, comfortable and no acute distress Orientation/consciousness: patient oriented x3 HENMT Head: Yes normocephalic and Yes atraumatic Ears: hearing grossly normal bilaterally Eyes General: appearance normal, both eyes and all related structures Neck Neck: Yes no lymphadenopathy and No tracheal deviation Resp Effort & Inspection: normal respiratory effort, able to speak in complete sentences and no audible wheezes Cardio Rhythm: regular rhythm Heart sounds: S1 normal heart sound present and S2 normal heart sound present Skin General skin exam: turgor normal Neuro General: patient oriented x3 and moves all extremities Gait exam (Neuro): Normal gait present Extrem Right lower extremity: no edema Left lower extremity: no edema Psych Affect: normal affect Attitude: cooperative Assessment and Plan Assessment & Plan (1) Cough: Code(s): R05.9 - Cough, unspecified (2) Major depression, recurrent: Code(s): F33.9 - Major depressive disorder, recurrent, unspecified Qualifiers: Active/Remission status: currently active Major depression episode severity: mild Qualified Code(s): F33.0 - Major depressive disorder, recurrent, mild (3) Chills: Code(s): R68.83 - Chills (without fever) (4) Muscle cramp: Code(s): R25.2 - Cramp and spasm (5) Migraine headache: Code(s): G43.909 - Migraine, unspecified, not intractable, without status migrainosus (6) Lipid disorder: Code(s): E78.9 - Disorder of lipoprotein metabolism, unspecified (7) Paresthesias: Code(s): R20.2 - Paresthesia of skin (8) Asthma, moderate persistent: Code(s): J45.40 - Moderate persistent asthma, uncomplicated Qualifiers: Asthma complication type: uncomplicated Qualified Code(s): J45.40 - Moderate persistent asthma, uncomplicated (9) Tired: Code(s): R53.83 - Other fatigue (10) Difficulty sleeping: Code(s): G47.9 - Sleep disorder, unspecified Plan Patient is a 52-year-old female came in today to discuss few medical problems, patient was last seen October of this year Patient tells me that she has been having tingling sometimes in her legs sometimes in her arm sometimes lips She does have a history of migraine headaches, has been having headaches as well associated with blurring of right vision. 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 She says that she can not take any time off because she need to make money she is a single parent and has a daughter to support. Patient is concerned that she is having cold intolerance she feels cold all the time. Symptoms her hand cramp up She has been having difficulty sleeping at night as well and not getting enough sleep Patient admits that she is working too many hours. I have sent amitriptyline 25 mg patient is to take that at night it will help her prevent migraine headaches as well Patient is also asthmatic and is using no inhaler, complaining of a dated cough. She was initially seen in walk-in clinic with these symptoms and some labs were ordered Which I reviewed with the patient her LDL is 181 which we will address later There was no thyroid test ordered Patient also would like to check if she is going through menopause. I have placed a referral for patient to be evaluated by Neurology, however some of her symptoms are secondary to migraine. It is possible that patient might be having complicated migraine. She will be starting the inhaler to control her asthma symptoms I have added chest x-ray as well. Patient says that she had pneumonia last year and she had no symptoms. Patient is also depressed I will address that at her upcoming appointment She is to return in couple of weeks to go over the reports and have a follow-up. Orders: Orders TSH reflex Free T4 Today E78.9 - Disorder of lipoprotein metabolism, unspecified, G43.909 - Migraine, unspecified, not intractable, without status migrainosus, R05.9 - Cough, unspecified, R25.2 - Cramp and spasm Follicle Stimulating Hormone Today E78.9 - Disorder of lipoprotein metabolism, unspecified, G43.909 - Migraine, unspecified, not intractable, without status migrainosus, R05.9 - Cough, unspecified, R25.2 - Cramp and spasm Complete Blood Count Auto Diff Today E78.9 - Disorder of lipoprotein metabolism, unspecified, G43.909 - Migraine, unspecified, not intractable, without status migrainosus, R05.9 - Cough, unspecified, R25.2 - Cramp and spasm Lipid Panel Today E78.9 - Disorder of lipoprotein metabolism, unspecified, G43.909 - Migraine, unspecified, not intractable, without status migrainosus, R05.9 - Cough, unspecified, R25.2 - Cramp and spasm Zinc Today E78.9 - Disorder of lipoprotein metabolism, unspecified, G43.909 - Migraine, unspecified, not intractable, without status migrainosus, R05.9 - Cough, unspecified, R25.2 - Cramp and spasm Vitamin B12 Today E78.9 - Disorder of lipoprotein metabolism, unspecified, G43.909 - Migraine, unspecified, not intractable, without status migrainosus, R05.9 - Cough, unspecified, R25.2 - Cramp and spasm XR chest 2V Today R05.9 - Cough, unspecified, R68.83 - Chills (without fever) Lutenizing Hormone Today E78.9 - Disorder of lipoprotein metabolism, un specified, G43.909 - Migraine, unspecified, not intractable, without status migrainosus, R05.9 - Cough, unspecified, R25.2 - Cramp and spasm Comprehensive [place]. Panel Fast Today E78.9 - Disorder of lipoprotein metabolism, unspecified, G43.909 - Migraine, unspecified, not intractable, without status migrainosus, R05.9 - Cough, unspecified, R25.2 - Cramp and spasm Vitamin D 25-OH (D2 and D3) Today E78.9 - Disorder of lipoprotein metabolism, unspecified, G43.909 - Migraine, unspecified, not intractable, without status migrainosus, R05.9 - Cough, unspecified, R25.2 - Cramp and spasm Ferritin Today E78.9 - Disorder of lipoprotein metabolism, unspecified, G43.909 - Migraine, unspecified, not intractable, without status migrainosus, R05.9 - Cough, unspecified, R25.2 - Cramp and spasm Referrals Neurology Referral G43.909 - Migraine, unspecified, not intractable, without status migrainosus, R20.2 - Paresthesia of skin Medications: New amitriptyline 25 mg PO BEDTIME 30 days 30 tabs 0RF albuterol sulfate 90 mcg/actuation (Ventolin HFA) 1 inh inhalation QID 30 days PRN 6.7 grams 0RF shortness of breath or wheezing Refilled sumatriptan succinate do not exceed 8 doses per 24 hrs 25 mg PO ONCE 30 days PRN 10 tabs 2RF migraine headache G43.909 - Migraine, unspecified, not intractable, without status migrainosus Coding Level of Care Code Est Pt Level 4 (82468) Diagnoses Cough R05.9 Mild episode of recurrent major depressive disorder F33.0 Active/Remission status: currently active Major depression episode severity: mild Chills R68.83 Muscle cramp R25.2 Migraine headache G43.909 Lipid disorder E78.9 Paresthesias R20.2 Moderate persistent asthma without complication J45.40 Asthma complication type: uncomplicated Tired R53.83 Difficulty sleeping G47.9 Additional Codes YAZMIN-7 Assessment Billing - YAZMIN-7 Assessment Tool: YAZMIN-7 Assessment [id number] ([id number])
== END 2023-04-07 13:20 | disposition home or self-care (01) ==
LOC: HO.HMGC 08:44
PROVIDERS: PCP Internal Medicine; Visit Provider Internal Medicine
DX: R05.9 Cough, unspecified (principal); F33.0 Major depressive disorder, recurrent, mild; R68.83 Chills (without fever); R25.2 Cramp and spasm; G43.909 Migraine, unspecified, not intractable, without status migrainosus; E78.9 Disorder of lipoprotein metabolism, unspecified; R20.2 Paresthesia of skin; J45.40 Moderate persistent asthma, uncomplicated; R53.83 Other fatigue; G47.9 Sleep disorder, unspecified
CPT/HCPCS: 99214

== ENCOUNTER 2023-04-07 09:13 | Outpatient (REF) | payer OTHER, SELFPAY ==
--- NOTE | ~2023-04-07 | XR_ITS ---
EXAMINATION: XR CHEST CLINICAL INFORMATION: Cough COMPARISON: Chest radiograph from 07/01/2021 TECHNIQUE: 2 views of the chest were obtained. FINDINGS: No focal consolidation. No pneumothorax. Trachea is midline. Cardiac mediastinal silhouette is not enlarged. No large pleural effusion. Degenerative changes of the thoracolumbar spine. Soft tissues are unremarkable. XR/XR chest 2V IMPRESSION: No acute cardiopulmonary process.
[2023-04-07 11:19] LABS: MANUAL DIFF FLAG NO
[2023-04-07 11:34] LABS: Basophils Percent Auto 0.4 % (0-2); Eosinophils Absolute Auto 0.3 X10*3/uL (0.0-0.4); Eosinophils Percent Auto 5.4 % (0-4); Hemoglobin 13.6 g/dl (12.0-16.0); Imm Gran Abs Auto 0.01 X10*3/uL (0.00-0.03); Imm Gran Pct Auto 0.2 % (0.0-0.4); Lymphocytes Percent Auto 38.6 % (20-40); Mean Corpuscular Hemoglobin 31.3 pg (27.0-33.0); Mean Platelet Volume 10.6 fL (9.4-12.3); Monocytes Absolute Auto 0.5 X10*3/uL (0.1-1.2); Monocytes Percent Auto 8.7 % (2-11); Neutrophils Absolute Auto 2.4 x10*3/uL (2.0-8.3); Neutrophils Percent Auto 46.7 % (45-73); Platelet Count 237 X10*3/uL (160-400); Red Blood Count 4.35 X10*6/uL (4.20-5.50); Red Cell Distribution Width 11.3 % (11.0-16.0); White Blood Count 5.2 X10*3/uL (4.8-10.8)
[2023-04-07 12:11] LABS: Alanine Aminotransferase 15 U/L (0-31); Albumin Level 4.2 g/dL (3.5-5.0); Alkaline Phosphatase 94 U/L (39-117); Anion Gap 13 (12-20); Aspartate Amino Transferase 21 U/L (5-31); Bilirubin Total 0.4 mg/dL (0.0-1.0); Blood Urea Nitrogen 10 mg/dL (9-16); Calcium 9.9 mg/dL (8.4-10.2); Carbon Dioxide 27 mmol/L (22-29); Chloride 106 mmol/L (96-108); Cholesterol 239 mg/dL (<200); Estimated Glomerular Filt Rate > 60; Ferritin 68 ng/mL (10-250); Glucose Fasting 85 mg/dL (60-99); HDL Cholesterol 61 mg/dL (>40); LDL Cholesterol Calculated 158 mg/dL (<100); Potassium 3.5 mmol/L (3.3-5.1); Sodium 142 mmol/L (135-145); Total Protein 7.6 g/dL (6.5-8.0); Triglycerides 100 mg/dL (<150)
[2023-04-07 12:13] LABS: Vitamin B12 1133 pg/mL (200-900)
[2023-04-08 05:54] LABS: Follicle Stimulating Hormone 120.7 mIU/mL; Lutenizing Hormone 58.1 mIU/mL
[2023-04-10 02:09] LABS: Zinc 95 mcg/dL (60-130)
[2023-04-12 11:59] LABS: Vitamin D 25-OH, D2 <4 ng/mL; Vitamin D 25-OH, D3 40 ng/mL; Vitamin D 25-OH, Total 40 ng/mL (30-100)
== END 2023-04-07 09:14 | disposition home or self-care (01) ==
LOC: HO.HMGCX 09:13
PROVIDERS: PCP Internal Medicine; Visit Provider Internal Medicine
DX: R05.9 Cough, unspecified (principal); R68.83 Chills (without fever); R25.2 Cramp and spasm; G43.909 Migraine, unspecified, not intractable, without status migrainosus; E78.9 Disorder of lipoprotein metabolism, unspecified
CPT/HCPCS: 36415; 71046; 80053; 80061; 82306; 82607; 82728; 83001; 83002; 84443; 84630; 85025

== ENCOUNTER 2023-04-13 09:56 | Outpatient (AMB) | payer OTHER, SELFPAY ==
--- NOTE | 2023-04-13 10:03 | MHC.OFFVIS ---
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 Intake Note: c/o of menopause symptoms Plastics Design Engineer Required: No Information Interpreted: non-clinical & clinical Legal Billing Coordinator: Legal Billing Coordinator Present (Sophie HOOVER) Accompanied by: Self / Same As Patient Allergies acetaminophen [From PERCOCET] Allergy (Intermediate, Verified 04/13/23 10:09) RASH oxycodone [Percocet] Allergy (Intermediate, Verified 04/13/23 10:09) rash Sulfa (Sulfonamide Antibiotics) [SULFA (SULFONAMIDE ANTIBIOTICS)] Allergy (Intermediate, Verified 04/13/23 10:09) RASH latex [LATEX] Allergy (Mild, Verified 04/13/23 10:09) RASH Influenza Virus Vaccines Allergy (Verified 04/13/23 10:09) Shortness of Breath amoxicillin [Augmentin] Adverse Reaction (Intermediate, Verified 04/13/23 10:09) diarrhea clavulanic acid [Augmentin] Adverse Reaction (Unknown, Verified 04/13/23 10:09) diarrhea Is last menstrual period known: Yes Last menstrual period: 03/03/23 HPI HPI Comments History of Present Illness Details Presenting for annual exam. No complaints. Last Pap/HPV was in 08/21 was negative Last Mammogram was BI-RADS 1 in 05/25 Last colonoscopy was in 02/19, the recommendation was to repeat in 5 years [facility] Medical History IUD complication Migraine without aura Hx of insomnia Hemorrhoids with complication History of COVID-19 Hemorrhoids Dysfunctional uterine bleeding PPD positive Bronchial asthma HNP (herniated nucleus pulposus) EMG normal Back pain Depression Acute anxiety GERD (gastroesophageal reflux disease) Herpes genitalia Surgical History History of endometrial ablation History of hemorrhoidectomy History of colonoscopy History of esophagogastroduodenoscopy (EGD) History of bilateral tubal ligation History of 3 sections Family History Father Hyperlipidemia Colon cancer CVD (cardiovascular disease) Mother Diabetes mellitus Glaucoma Maternal Grandmother Diabetes mellitus HTN (hypertension) Maternal Aunt Breast cancer Social History Housing: Condominium Alcohol intake: never Comment: instrument, sharps, sponges count-1st count done by bry murrieta and lennie; Patient Tobacco Use Status: Never used Tobacco e-Cigarette/Vaping Use: Never Used Second Hand Smoke Exposure: Yes Current occupational status: employed 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 Gender identity: Female Cognitive needs: No Hearing needs: No Vision needs: Yes Female Reproductive History Menstrual Age of Menarche: 13 Date of last menstrual period: 03/03/23 Total pregnancies: 4 Full term: 3 Number of Living Children: 3 Ab spontaneous: 1 Date of last pap smear: 08/12/20 Date of Mammogram: 05/11/22 Review of Systems Const All systems reviewed & are unremarkable except as noted in HPI and below Card Reports as per HPI Resp Reports as per HPI GI Reports as per HPI and Reports no additional complaints Reports as per HPI Physical Exam Vital Signs: BMI result Body Mass Index 28.8 Const General: cooperative, healthy appearing and comfortable Chest Chest palpation & inspection: normal inspection of the chest and normal palpation of entire chest wall Breast/axilla inspection: normal inspection of the breasts and normal inspection of the axillae Breast/axilla palpation: normal palpation of the breasts, normal palpation of the axillae and no axillary lymphadenopathy Resp Effort & Inspection: normal respiratory effort Auscultation: clear to auscultation bilaterally Percussion: percussion normal Cardio Palpation: normal PMI Rate: regular rate Rhythm: regular rhythm Heart sounds: no murmurs and no rubs Peripheral pulses: Peripheral pulses 2+ throughout GI Inspection: Yes normal to inspection Palpation (GI): Soft to palpation, nontender, no guarding, not rigid and No hepatosplenomegaly present Percussion: Yes normal to percussion Auscultation: normal bowel sounds Rectal Exam - Female: deferred General: Yes bladder normal to palpation External Female Exam: No lesion Speculum Exam - Vagina: normal appearance of the vagina, normal palpation, normal vaginal discharge and not erythematous Speculum Exam - Cervix: normal appearance of the cervix and normal palpation Bimanual exam- vagina & uterus: normal bimanual exam, normal palpation, uterine size normal, bladder normal to palpation, consistency normal and normal palpation Bimanual Exam- Adnexa, other: normal adnexae, no masses and no tenderness Assessment & Plan Assessment & Plan (1) Well woman exam: Code(s): Z01.419 - Encounter for gynecological examination (general) (routine) without abnormal findings Plan: Co testing not indicated this year. Counseled the patient about the recommended dietary allowance of 1200 mg of Calcium & 600 IU of vitamin D. Mammogram ordered. The patient was instructed to perform monthly self-breast exams and schedule annual exam in a year. All questions answered and the patient verbalized understanding. Orders: Orders MM tomosynthesis screening BI Today Z12.31 - Encounter for screening mammogram for malignant neoplasm of breast Coding Level of Care Code Est Pt Prev Care 40-64y(67333) Diagnoses Well woman exam Z01.419
[2023-04-13 10:04] VITALS: BP 122/76; BMI 28.8
== END 2023-04-13 10:28 | disposition home or self-care (01) ==
PROVIDERS: PCP Internal Medicine; Visit Provider Obstetrics & Gynecology
DX: Z01.419 Encounter for gynecological examination (general) (routine) without abnormal findings (principal)
CPT/HCPCS: 99396

== ENCOUNTER → 2023-04-13 09:56 | Outpatient (BNVA) | payer OTHER, SELFPAY | PROVIDERS: PCP Internal Medicine; Visit Provider Obstetrics & Gynecology ==

== ENCOUNTER 2023-04-21 10:24 | Outpatient (AMB) | payer OTHER, SELFPAY ==
[2023-04-21 10:28] VITALS: BP 134/90; PULSE 100; O2SAT 99; BMI 29.4
--- NOTE | 2023-04-21 10:28 | MHC.PC.OV ---
Vital Signs 04/21/23 10:28 Height 5 ft 4 in Weight 171 lb 6 oz BMI 29.4 BP 134/90 H Blood Pressure Location Lt brachial Position Sitting Pulse 100 Pulse Source Pulse Oximeter Pulse Oximetry (%) 99 Oxygen Delivery Method Room Air Intake Visit Reasons: 2 WK F/U~ Allergies acetaminophen [From PERCOCET] Allergy (Intermediate, Verified 04/21/23 10:28) RASH oxycodone [Percocet] Allergy (Intermediate, Verified 04/21/23 10:28) rash Sulfa (Sulfonamide Antibiotics) [SULFA (SULFONAMIDE ANTIBIOTICS)] Allergy (Intermediate, Verified 04/21/23 10:28) RASH latex [LATEX] Allergy (Mild, Verified 04/21/23 10:28) RASH Influenza Virus Vaccines Allergy (Verified 04/21/23 10:28) Shortness of Breath amoxicillin [Augmentin] Adverse Reaction (Intermediate, Verified 04/21/23 10:28) diarrhea clavulanic acid [Augmentin] Adverse Reaction (Unknown, Verified 04/21/23 10:28) diarrhea Medication List - Last Reconciled 04/21/23 by Rex Espino MD albuterol sulfate 90 mcg/actuation (Ventolin HFA) 1 inh inhalation QID PRN 30 days amitriptyline 25 mg PO BEDTIME 30 days ascorbate calcium (vitamin C) 500 mg PO DAILY cholecalciferol (vitamin D3) (Vitamin D3) 50 mcg PO DAILY fluticasone propionate 50 mcg/actuation (Allergy Relief (fluticasone)) 1 spray intranasal DAILY 30 days norethindrone ac-eth estradiol 1-20 mg-mcg (Microgestin) 1 tab PO DAILY omeprazole 20 mg PO BID 90 days rizatriptan 5 mg PO ONCE PRN 30 days simethicone (Gas Relief (simethicone)) 125 mg PO TID PRN 30 days Tobacco use date assessed: 04/21/23 Dental Screening Dental Screen Date: 04/21/23 Did you have a dental visit in the last 12 months?: No Did you have a dental problem in the last 6 months where you did not have access to dental care?: No Was dental information given to patient?: Patient has dentist HPI 2 WK F/U~ HPI Details Patient is a 52-year-old female came in today to go over her labs She was seen few days ago with wakes symptoms of tingling numbness feeling hot cold, fatigue tiredness Referral was placed for patient to see neurologist for tingling and numbness in her body Labs were order to evaluate her thyroid and to see if patient is going through menopause Her kidney functions are intact, liver functions are intact, sugar is within normal limit, her B12 level is too high patient was instructed to stop supplement Vitamin-D level is normal Her thyroid is within normal limit However her follicle stimulating hormone is in menopause range. Patient was notified of all lab values I still would recommend for her to cut down her working hours and sleep more and hydrate well. Patient was given time to ask questions all questions answered. [facility] Medical History IUD complication Migraine without aura Hx of insomnia Hemorrhoids with complication History of COVID-19 Hemorrhoids Dysfunctional uterine bleeding PPD positive Bronchial asthma HNP (herniated nucleus pulposus) EMG normal Back pain Depression Acute anxiety GERD (gastroesophageal reflux disease) Herpes genitalia Surgical History History of endometrial ablation History of hemorrhoidectomy History of colonoscopy History of esophagogastroduodenoscopy (EGD) History of bilateral tubal ligation History of 3 sections Family History Father Hyperlipidemia Colon cancer CVD (cardiovascular disease) Mother Diabetes mellitus Glaucoma Maternal Grandmother Diabetes mellitus HTN (hypertension) Maternal Aunt Breast cancer Social History Housing: Condominium Alcohol intake: never Comment: instrument, sharps, sponges count-1st count done by bry murrieta and lennie; Patient Tobacco Use Status: Never used Tobacco e-Cigarette/Vaping Use: Never Used Second Hand Smoke Exposure: Yes Current occupational status: employed Current occupation: [employer] Gender identity: Female Cognitive needs: No Hearing needs: No Vision needs: Yes Female Reproductive History Menstrual Age of Menarche: 13 Questionnaire Thrive Questionnaire Date Thrive assessed: 04/07/23 AUDIT C Alcohol Use Questionnaire (AUDIT-C) 1. How often do you have a drink containing alcohol?: Never 3. How often do you have six or more drinks on one occasion?: Never Total Score: 0 Score Reviewed/Action Taken: Yes YAZMIN-7 AMB Questionnaire YAZMIN-7 Date YAZMIN - 7 assessed: 04/07/23 Source: Developed by Drs. Shabbir Ruiz, Sophia Luis, Alvino Sellers and colleagues, with an educational jennifer from [employer]. Review of Systems Const Denies chills and Denies fever(s) ENT Denies epistaxis and Denies nasal discharge Card Denies chest pain Resp Denies chest congestion, Denies cough and Denies hemoptysis GI Denies diarrhea and Denies nausea Skin/Breast Denies rash Neuro Reports no additional complaints Psych Reports no additional complaints Endo Reports no additional complaints Physical exam (Primary Care) Vital Signs: Last Vital Signs Pulse 100 04/21/23 10:28 BP 134/90 H 04/21/23 10:28 Pulse Ox 99 04/21/23 10:28 Oxygen Delivery Method Room Air 04/21/23 10:28 BMI result Body Mass Index 29.4 Tobacco/Smoking Status: Tobacco use Status Tobacco use date assessed 04/21/23 04/21/23 10:31 Patient Tobacco Use Status Never used Tobacco 04/21/23 10:31 e-Cigarette/Vaping Use Never Used 04/21/23 10:31 Thrive Assessment: Date of Thrive Assessment Date Thrive assessed 04/07/23 04/21/23 10:31 Const General: cooperative, comfortable and no acute distress Orientation/consciousness: patient oriented x3 HENMT Head: Yes normocephalic Eyes General: appearance normal, both eyes and all related structures Neck Neck: Yes supple Resp Effort & Inspection: normal respiratory effort, no cough and no stridor Cardio Rhythm: regular rhythm Heart sounds: S1 normal heart sound present and S2 normal heart sound present Skin General skin exam: turgor normal Neuro General: patient oriented x3, tone normal and moves all extremities Extrem Right lower extremity: no edema Left lower extremity: no edema Results Reviewed Results Reviewed: Laboratory Tests 03/22/23 04/07/23 04/07/23 15:08 09:29 09:29 WBC 5.2 RBC 4.35 Hgb 13.6 Hct 40.0 Sodium 142 Potassium 3.5 Chloride 106 Creatinine 0.86 Estimated GFR > 60 Fasting Glucose 85 Ferritin 68 Total Bilirubin 0.4 AST 21 ALT 15 Alkaline Phosphatase 94 LDL Cholesterol, Calc 181 H 158 H Vitamin B12 1133 H 25-OH Vitamin D Total 40 TSH 1.80 FSH 120.7 H Luteinizing Hormone 58.1 Assessment and Plan Assessment & Plan (1) Chills: Code(s): R68.83 - Chills (without fever) (2) Migraine headache: Code(s): G43.909 - Migraine, unspecified, not intractable, without status migrainosus Qualifiers: Intractability: intractable Migraine type: unspecified Status migrainosus presence: without status migrainosus Qualified Code(s): G43.919 - Migraine, unspecified, intractable, without status migrainosus (3) Lipid disorder: Code(s): E78.9 - Disorder of lipoprotein metabolism, unspecified (4) Paresthesias: Code(s): R20.2 - Paresthesia of skin (5) Tired: Code(s): R53.83 - Other fatigue (6) Difficulty sleeping: Code(s): G47.9 - Sleep disorder, unspecified Plan Patient is a 52-year-old female came in today to go over her labs She was seen few days ago with wakes symptoms of tingling numbness feeling hot cold, fatigue tiredness Referral was placed for patient to see neurologist for tingling and numbness in her body Labs were order to evaluate her thyroid and to see if patient is going through menopause Her kidney functions are intact, liver functions are intact, sugar is within normal limit, her B12 level is too high patient was instructed to stop supplement Vitamin-D level is normal Her thyroid is within normal limit However her follicle stimulating hormone is in menopause range. Patient was notified of all lab values I still would recommend for her to cut down her working hours and sleep more and hydrate well. Her headaches have improved, and asthma is stable Patient was given time to ask questions all questions answered. Coding Level of Care Code Est Pt Level 4 (13362) Diagnoses Chills R68.83 Intractable migraine without status migrainosus, unspecified migraine type G43.919 Intractability: intractable Migraine type: unspecified Status migrainosus presence: without status migrainosus Lipid disorder E78.9 Paresthesias R20.2 Tired R53.83 Difficulty sleeping G47.9
== END 2023-04-21 16:47 | disposition home or self-care (01) ==
PROVIDERS: PCP Internal Medicine; Visit Provider Internal Medicine
DX: R68.83 Chills (without fever) (principal); G43.919 Migraine, unspecified, intractable, without status migrainosus; E78.9 Disorder of lipoprotein metabolism, unspecified; R20.2 Paresthesia of skin; R53.83 Other fatigue; G47.9 Sleep disorder, unspecified
CPT/HCPCS: 99214

== ENCOUNTER 2023-05-17 09:03 | Outpatient (REF) | payer OTHER, SELFPAY | END 2023-05-17 09:04 | disposition home or self-care (01) | LOC: HO.MAMMO 09:03 | PROVIDERS: PCP Internal Medicine; Visit Provider Internal Medicine | DX: Z12.31 Encounter for screening mammogram for malignant neoplasm of breast (principal) | CPT/HCPCS: 77063; 77067 ==

== ENCOUNTER → 2023-05-17 09:15 | Outpatient (BNV) | payer OTHER, SELFPAY | PROVIDERS: PCP Internal Medicine; Visit Provider Radiology Diagnostic Radiology | DX: Z12.31 Encounter for screening mammogram for malignant neoplasm of breast (principal) | CPT/HCPCS: 77063; 77067 ==

== ENCOUNTER 2024-03-24 09:56 | Outpatient (REF) | payer OTHER, SELFPAY ==
[2024-03-24 13:03] LABS: MANUAL DIFF FLAG NO
[2024-03-24 13:06] LABS: Basophils Percent Auto 0.8 % (0-2); Eosinophils Absolute Auto 0.3 X10*3/uL (0.0-0.4); Eosinophils Percent Auto 5.1 % (0-4); Hematocrit 39.8 % (37.0-47.0); Hemoglobin 13.5 g/dl (12.0-16.0); Imm Gran Abs Auto 0.01 X10*3/uL (0.00-0.03); Imm Gran Pct Auto 0.2 % (0.0-0.4); Lymphocytes Absolute Auto 2.2 X10*3/uL (1.2-4.9); Lymphocytes Percent Auto 43.4 % (20-40); Mean Corpuscular HGB Conc 33.9 g/dl (31.0-35.0); Mean Corpuscular Hemoglobin 31.5 pg (27.0-33.0); Mean Corpuscular Volume 92.8 fL (80.0-98.0); Mean Platelet Volume 10.5 fL (9.4-12.3); Monocytes Absolute Auto 0.4 X10*3/uL (0.1-1.2); Monocytes Percent Auto 8.6 % (2-11); Neutrophils Absolute Auto 2.2 x10*3/uL (2.0-8.3); Neutrophils Percent Auto 41.9 % (45-73); Platelet Count 234 X10*3/uL (160-400); Red Blood Count 4.29 X10*6/uL (4.20-5.50); Red Cell Distribution Width 12.1 % (11.0-16.0); White Blood Count 5.1 X10*3/uL (4.8-10.8)
[2024-03-24 13:33] LABS: Alanine Aminotransferase 21 U/L (0-31); Albumin Level 4.3 g/dL (3.5-5.0); Alkaline Phosphatase 92 U/L (39-117); Anion Gap 9 (12-20); Aspartate Amino Transferase 24 U/L (5-31); Bilirubin Total 0.2 mg/dL (0.0-1.0); Blood Urea Nitrogen 10 mg/dL (9-16); Calcium 9.8 mg/dL (8.4-10.2); Carbon Dioxide 29 mmol/L (22-29); Chloride 106 mmol/L (96-108); Cholesterol 249 mg/dL (<200); Estimated Glomerular Filt Rate > 60; Glucose Fasting 94 mg/dL (60-99); HDL Cholesterol 77 mg/dL (>40); LDL Cholesterol Calculated 159 mg/dL (<100); Sodium 140 mmol/L (135-145); Total Protein 7.5 g/dL (6.5-8.0); Triglycerides 65 mg/dL (<150)
[2024-03-24 13:49] LABS: TSH reflex Free T4 2.75 uIU/mL (0.32-4.0)
== END 2024-03-24 09:57 | disposition home or self-care (01) ==
LOC: HO.HMGCLDS 09:56
PROVIDERS: PCP Internal Medicine; Visit Provider Internal Medicine
DX: Z00.01 Encounter for general adult medical examination with abnormal findings (principal); G43.919 Migraine, unspecified, intractable, without status migrainosus; M77.12 Lateral epicondylitis, left elbow; R10.2 Pelvic and perineal pain
CPT/HCPCS: 36415; 80053; 80061; 81003; 84443; 85025; 96127

== ENCOUNTER 2024-03-24 09:56 | Outpatient (AMB) | payer OTHER, SELFPAY ==
[2024-03-24 10:04] VITALS: BP 122/76; PULSE 72; O2SAT 98; BMI 29.2
--- NOTE | 2024-03-24 10:04 | MHC.PC.OV ---
Vital Signs 03/24/24 10:04 Height 5 ft 4 in Weight 170 lb 2 oz BMI 29.2 BP 122/76 Blood Pressure Location Lt brachial Position Sitting Pulse 72 Pulse Source Pulse Oximeter Pulse Oximetry (%) 98 Oxygen Delivery Method Room Air Intake Visit Reasons: PE Allergies acetaminophen [From PERCOCET] Allergy (Intermediate, Verified 03/24/24 10:14) RASH oxycodone [Percocet] Allergy (Intermediate, Verified 03/24/24 10:14) rash Sulfa (Sulfonamide Antibiotics) [SULFA (SULFONAMIDE ANTIBIOTICS)] Allergy (Intermediate, Verified 03/24/24 10:14) RASH latex [LATEX] Allergy (Mild, Verified 03/24/24 10:14) RASH Influenza Virus Vaccines Allergy (Verified 03/24/24 10:14) Shortness of Breath amoxicillin [Augmentin] Adverse Reaction (Intermediate, Verified 03/24/24 10:14) diarrhea clavulanic acid [Augmentin] Adverse Reaction (Unknown, Verified 03/24/24 10:14) diarrhea Medication List - Last Reconciled 03/24/24 by Rex Espino MD cholecalciferol (vitamin D3) (Vitamin D3) 50 mcg PO DAILY fluticasone propionate 50 mcg/actuation (Allergy Relief (fluticasone)) 1 spray intranasal DAILY 30 days norethindrone ac-eth estradiol 1-20 mg-mcg (Microgestin) 1 tab PO DAILY rizatriptan 5 mg PO ONCE PRN 30 days Tobacco use date assessed: 03/24/24 Dental Screening Dental Screen Date: 03/24/24 Did you have a dental visit in the last 12 months?: Yes Did you have a dental problem in the last 6 months where you did not have access to dental care?: No Was dental information given to patient?: Patient has dentist HPI PE HPI Details Chief Complaint Patient presents with persistent symptoms of dizziness and pain in the back and elbow. And annual physical exam Assessment and Plan 53-year-old female with a history of allergic rhinitis and recent COVID-19 infection presenting with dizziness and multi-site pain. The patient describes dizziness associated with a recent infection from wisdom tooth extraction right side. The low back pain is chronic, previously caused by a disc issue without any surgical intervention, and the patient reports exacerbation for the past week. Examination suggests tennis elbow likely due to repetitive strain, with localized pain upon palpation. The symptoms of dizziness may be attributed to inner ear involvement post-infection. Intermittent migraine episodes are also present but not currently active. She reports no acute respiratory distress, suggesting recovery from the recent COVID-19 infection. She is complaining of suprapubic discomfort the past 1 week on examination she is tender with palpation suprapubically Requiring urinalysis Patient is also fasting and is due labs Mammogram was May of this year Colonoscopies due next year, last 1 was in [address] Lopez [facility] OBGYN [facility] patient will be due for a visit in April, breast exam through OBGYN 1. Migraine The patient manages infrequent migraine episodes with prescribed medication as needed. Refill prescriptions as necessary according to pharmacy requests. No acute change in management needed. 2. Covid-19 Infection The patient reports recovery from a recent COVID-19 infection without significant respiratory issues at the present time. Continue monitoring symptoms; emphasize supportive care including rest and hydration. 3. Low Back Pain The patient has experienced low back pain exacerbation over the past week. Advised to use ibuprofen as needed for symptom relief and continue with gentle exercises. Monitor the symptoms; no new imaging indicated at this time. 4. Allergic Rhinitis The patient continues to experience allergic rhinitis, managed with Flonase. A new prescription will be sent to the pharmacy due to inability to fill the previous one. 5. Dizziness Possibly related to recent tooth infection and post-surgical changes. Encourage cautious activity and observation of symptoms. If symptoms worsen, consider ENT evaluation. 6. Tennis Elbow The patient reports pain attributed to repetitive strain as consistent with tennis elbow. Ibuprofen is recommended for pain management. Suggested incorporating rest, therapeutic exercises, and avoiding activities that exacerbate pain. Problem List - COVID-19 infection - Migraine - Allergic rhinitis - Low back pain - Dizziness - Tennis elbow -suprapubic discomfort Urinalysis shows no signs of infection Patient Instructions - Take prescribed ibuprofen for both the back pain and tennis elbow as necessary. - Follow up with pharmacy for Flonase prescription to manage allergic rhinitis. - Observe dizziness symptoms; report any worsening. Limit activities that provoke balance issues. - Schedule an annual physical examination and all due preventative health screenings, including the mammogram aligned for May based on previous schedule. - Ensure to book [facility] follow-up for routine assessment. - Continue using migraine medication as needed for episodic relief. - Maintain hydration and supportive care post-COVID recovery. - Return if symptoms do not improve or worsen. Follow-up 1 week telemedicine and 1 year physical exam [facility], [facility] Medical History IUD complication Migraine without aura Hx of insomnia Hemorrhoids with complication History of COVID-19 Hemorrhoids Dysfunctional uterine bleeding PPD positive Bronchial asthma HNP (herniated nucleus pulposus) EMG normal Back pain Depression Acute anxiety GERD (gastroesophageal reflux disease) Herpes genitalia Surgical History History of endometrial ablation History of hemorrhoidectomy History of colonoscopy History of esophagogastroduodenoscopy (EGD) History of bilateral tubal ligation History of 3 sections Family History Father Hyperlipidemia Colon cancer CVD (cardiovascular disease) Mother Diabetes mellitus Glaucoma Maternal Grandmother Diabetes mellitus HTN (hypertension) Maternal Aunt Breast cancer Social History Housing: Condominium Alcohol intake: never Comment: instrument, sharps, sponges count-1st count done by bry murrieta and lennie; Patient Tobacco Use Status: Never used Tobacco e-Cigarette/Vaping Use: Never Used Second Hand Smoke Exposure: Yes Current occupational status: employed 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 1. Little interest or pleasure in doing things: more than half the days 2. Feeling down, depressed, or hopeless: more than half the days 3. Trouble falling or staying asleep, or sleeping too much: nearly every day 4. Feeling tired or having little energy: nearly every day 5. Poor appetite or overeating: not at all 6. Feeling bad about yourself - or that you are a failure or have let yourself or your family down: not at all 7. Trouble concentrating on things, such as reading the newspaper or watching television: not at all 8. Moving or speaking so slowly that other people could have noticed. Or the opposite - being so fidgety or restless that you have been moving around a lot more than usual: not at all 9. Thoughts that you would be better off or of hurting yourself in some way: not at all Total score: 10 Depression Screening Interpretation: Positive Depression Screening Follow-up: Follow-up Visit Requested Depression Screening Done: Yes 33329 - PHQ-9 Billing: Yes Source: Developed by Drs. Shabbir Ruiz, Sophia Luis, Alvino Sellers and colleagues, with an educational jennifer from [employer]. Thrive Questionnaire Date Thrive assessed: 03/24/24 I am a: Patient What is your living situation today?: I have a steady place to live Within the past 12 months, did the food you bought not last and you didn't have the money to get more?: Sometimes True Within the past 12 months, did you worry whether your food would run out before you got money to buy more?: Often true Do you have trouble paying for medicines?: No Do you have trouble getting transportation to medical appointments?: No Do you have trouble paying your heating and electricity bill?: Yes Do you have trouble taking care of your child, family member or friend?: No Do you have trouble with day-to-day activities such as bathing, preparing meals, shopping, managing finances, etc.?: No Are you currently unemployed and looking for a job?: No Are you interested in more education?: No Please select the resources that you would like help with: Housing/Prison, Food and Utilities Currently or been in a relationship where the following occur: I choose not to answer THRIVE Score: 3 AUDIT C Alcohol Use Questionnaire (AUDIT-C) 1. How often do you have a drink containing alcohol?: Never 2. How many drinks containing alcohol do you have on a typical day when you are drinking?: 1 or 2 3. How often do you have six or more drinks on one occasion?: Less than monthly Total Score: 1 Score Reviewed/Action Taken: Yes YAZMIN-7 AMB Questionnaire YAZMIN-7 Date YAZMIN - 7 assessed: 03/24/24 Feeling nervous, anxious, or on edge: 2 = More than half the days Not being able to stop or control worryin = Nearly every day Worrying too much about different things: 3 = Nearly every day Trouble relaxin = More than half the days Being so restless that it is hard to sit still: 0 = Not at all Becoming easily annoyed or irritable: 2 = More than half the days Feeling afraid as if something awful might happen: 3 = Nearly every day Total YAZMIN-7 score (0-4 normal; 5-9 mild; 10-14 moderate; 15-21 severe): 15 Source: Developed by Drs. Shabbir Ruiz, Sophia Luis, Alvino Sellers and colleagues, with an educational jennifer from [employer]. YAZMIN-7 Assessment Billing YAZMIN-7 Assessment Tool: YAZMIN-7 Assessment 15938 Review of Systems Const Denies chills, Denies fever(s) and Denies headache(s) Eyes Denies blurry vision ENT Denies headache(s), Denies nasal discharge, Denies nasal obstruction, Denies odynophagia and Denies sinus pain Card Denies chest pain at rest and Denies chest pain with activity Resp Denies cough and Denies hemoptysis GI Denies diarrhea, Denies odynophagia, Denies vomiting and Denies hematemesis Reports as per HPI Musc Denies abnormal gait Skin/Breast Reports as per HPI Neuro Denies Neuro-related abnormal movements, Denies Abnormal speech present, Denies abnormal gait, Denies headache(s) and Denies Sensory deficit (Neuro) Psych Denies mood swings and Denies paranoia Endo Reports as per HPI Grabiel/Lymph Reports as per HPI Aller/Immun Reports as per HPI Physical exam (Primary Care) Vital Signs: Last Vital Signs Pulse 72 03/24/24 10:04 BP 122/76 03/24/24 10:04 Pulse Ox 98 03/24/24 10:04 Oxygen Delivery Method Room Air 03/24/24 10:04 BMI result Body Mass Index 29.2 Tobacco/Smoking Status: Tobacco use Status Tobacco use date assessed 03/24/24 03/24/24 10:14 Patient Tobacco Use Status Never used Tobacco 03/24/24 10:04 e-Cigarette/Vaping Use Never Used 03/24/24 10:04 PHQ-9: PHQ-9 Score PHQ-9: Total score 10 03/24/24 10:36 Depression Screening Interpretation: Positive Depression Screening Follow-up: Follow-up Visit Requested Thrive Assessment: Date of Thrive Assessment Date Thrive assessed 03/24/24 03/24/24 10:14 Currently or been in a relationship where the following occur: I choose not to answer Const General: cooperative, comfortable and no acute distress Orientation/consciousness: patient oriented x3 HENMT Head: Yes normocephalic and Yes atraumatic Eyes General: appearance normal, both eyes and all related structures Pupils: Equal, round and reactive pupils present EOM: EOMs intact bilaterally Neck Neck: Yes supple and No lymphadenopathy Thyroid: Thyroid normal Lymphatic: no lymphadenopathy noted Resp Effort & Inspection: normal respiratory effort and able to speak in complete sentences Auscultation: clear to auscultation bilaterally Cardio Heart sounds: S1 normal heart sound present and S2 normal heart sound present GI Other: Lower abdomen discomfort with pressure, no guarding no rebound Palpation (GI): Soft to palpation Auscultation: normal bowel sounds General: Yes no CVA tenderness Back/Spine/Pelvis Back: no CVA tenderness Skin General skin exam: elasticity normal and turgor normal Neuro General: patient oriented x3 and gait normal Cranial nerves: Yes Equal, round and reactive pupils present Speech: No Abnormal speech present Sensory Exam: No Sensory deficit (Neuro) Coordination: tandem gait normal and Romberg test negative Extrem General: Yes normal exam except as noted and No edema Elbow/forearm/wrist images: 1. Tender to pressure Results AMB Urinalysis, Automated UA Leukoctes 0 Kristie/uL Last Edit by Jose Manuel Salinas CMA on 03/24/24 10:43 UA Nitrite Negative Last Edit by Jose Manuel Salinas CMA on 03/24/24 10:43 UA Urobilinogen 0.2 mg/dL Last Edit by Jose Manuel Salinas CMA on 03/24/24 10:43 UA Protein 0 mg/dL Last Edit by Jose Manuel Salinas CMA on 03/24/24 10:43 UA pH 6.0 Last Edit by Jose Manuel Salinas CMA on 03/24/24 10:43 UA Blood 0 Todd/uL Last Edit by Jose Manuel Salinas CMA on 03/24/24 10:43 UA Specific Malone 1.015 Last Edit by Jose Manuel Salinas CMA on 03/24/24 10:43 UA Ketone Negative Last Edit by Jose Manuel Salinas CMA on 03/24/24 10:43 UA Bilirubin 0 mg/dL Last Edit by Jose Manuel Salinas CMA on 03/24/24 10:43 UA Glucose 0 mg/dL Last Edit by Jose Manuel Salinas CMA on 03/24/24 10:43 Results Reviewed Results Reviewed: Laboratory Last Values Urine pH (Auto) 6.0 03/24/24 10:42 Specific Malone (Auto) 1.015 03/24/24 10:42 Urine Protein (Auto) 0 mg/dL 03/24/24 10:42 Glucose (UA)(Auto) 0 mg/dL 03/24/24 10:42 Urine Ketones (Auto) Negative 03/24/24 10:42 Urine Blood (Auto) 0 Todd/uL 03/24/24 10:42 Urine Nitrite (Auto) Negative 03/24/24 10:42 Urine Bilirubin (Auto) 0 mg/dL 03/24/24 10:42 Urine Urobilinogen (Auto) 0.2 mg/dL 03/24/24 10:42 Leukocyte Esterase (Auto) 0 Kristie/uL 03/24/24 10:42 Coding Level of Care Code Est Pt Level 4 (84032) Est Pt Prev Care 40-64y(48432) Diagnoses Encounter for general adult medical examination with abnormal findings Z00. Intractable migraine without status migrainosus, unspecified migraine type G43.919 Intractability: intractable Migraine type: unspecified Status migrainosus presence: without status migrainosus Left tennis elbow M77.12 Suprapubic discomfort R10.2 Additional Codes YAZMIN-7 Assessment Billing - YAZMIN-7 Assessment Tool: YAZMIN-7 Assessment 93599 ([id number]) PHQ-9 - 57131 - PHQ-9 Billing: Yes ([id number]) Assessment & Plan Assessment & Plan (1) Encounter for general adult medical examination with abnormal findings: Code(s): Z00.01 - Encounter for general adult medical examination with abnormal findings Category: Medical (2) Migraine headache: Code(s): G43.909 - Migraine, unspecified, not intractable, without status migrainosus Category: Medical Qualifiers: Intractability: intractable Migraine type: unspecified Status migrainosus presence: without status migrainosus Qualified Code(s): G43.919 - Migraine, unspecified, intractable, without status migrainosus (3) Left tennis elbow: Code(s): M77.12 - Lateral epicondylitis, left elbow Category: Medical (4) Suprapubic discomfort: Code(s): R10.2 - Pelvic and perineal pain Category: Medical Plan Chief Complaint Patient presents with persistent symptoms of dizziness and pain in the back and elbow. And annual physical exam Assessment and Plan 53-year-old female with a history of allergic rhinitis and recent COVID-19 infection presenting with dizziness and multi-site pain. The patient describes dizziness associated with a recent infection from wisdom tooth extraction right side. The low back pain is chronic, previously caused by a disc issue without any surgical intervention, and the patient reports exacerbation for the past week. Examination suggests tennis elbow likely due to repetitive strain, with localized pain upon palpation. The symptoms of dizziness may be attributed to inner ear involvement post-infection. Intermittent migraine episodes are also present but not currently active. She reports no acute respiratory distress, suggesting recovery from the recent COVID-19 infection. She is complaining of suprapubic discomfort the past 1 week on examination she is tender with palpation suprapubically Requiring urinalysis Patient is also fasting and is due labs Mammogram was May of this year Colonoscopies due next year, last 1 [facility] [address] [facility] patient will be due for a visit in April, breast exam through OBGYN 1. Migraine The patient manages infrequent migraine episodes with prescribed medication as needed. Refill prescriptions as necessary according to pharmacy requests. No acute change in management needed. 2. Covid-19 Infection The patient reports recovery from a recent COVID-19 infection without significant respiratory issues at the present time. Continue monitoring symptoms; emphasize supportive care including rest and hydration. 3. Low Back Pain The patient has experienced low back pain exacerbation over the past week. Advised to use ibuprofen as needed for symptom relief and continue with gentle exercises. Monitor the symptoms; no new imaging indicated at this time. 4. Allergic Rhinitis The patient continues to experience allergic rhinitis, managed with Flonase. A new prescription will be sent to the pharmacy due to inability to fill the previous one. 5. Dizziness Possibly related to recent tooth infection and post-surgical changes. Encourage cautious activity and observation of symptoms. If symptoms worsen, consider ENT evaluation. 6. Tennis Elbow The patient reports pain attributed to repetitive strain as consistent with tennis elbow. Ibuprofen is recommended for pain management. Suggested incorporating rest, therapeutic exercises, and avoiding activities that exacerbate pain. Problem List - COVID-19 infection - Migraine - Allergic rhinitis - Low back pain - Dizziness - Tennis elbow -suprapubic discomfort Urinalysis shows no signs of infection Patient Instructions - Take prescribed ibuprofen for both the back pain and tennis elbow as necessary. - Follow up with pharmacy for Flonase prescription to manage allergic rhinitis. - Observe dizziness symptoms; report any worsening. Limit activities that provoke balance issues. - Schedule an annual physical examination and all due preventative health screenings, including the mammogram aligned for May based on previous schedule. - Ensure to book [facility] follow-up for routine assessment. - Continue using migraine medication as needed for episodic relief. - Maintain hydration and supportive care post-COVID recovery. - Return if symptoms do not improve or worsen. Follow-up 1 week telemedicine and 1 year physical exam Orders: Orders Comprehensive [place]. Panel Fast Today G43.919 - Migraine, unspecified, intractable, without status migrainosus, M77.12 - Lateral epicondylitis, left elbow, R10.2 - Pelvic and perineal pain, Z00.01 - Encounter for general adult medical examination with abnormal findings TSH reflex Free T4 Today G43.919 - Migraine, unspecified, intractable, without status migrainosus, M77.12 - Lateral epicondylitis, left elbow, R10.2 - Pelvic and perineal pain, Z00.01 - Encounter for general adult medical examination with abnormal findings AMB Urinalysis Automated Today Z13.9 - Encounter for screening, unspecified Complete Blood Count Auto Diff Today G43.919 - Migraine, unspecified, intractable, without status migrainosus, M77.12 - Lateral epicondylitis, left elbow, R10.2 - Pelvic and perineal pain, Z00.01 - Encounter for general adult medical examination with abnormal findings Lipid Panel Today G43.919 - Migraine, unspecified, intractable, without status migrainosus, M77.12 - Lateral epicondylitis, left elbow, R10.2 - Pelvic and perineal pain, Z00.01 - Encounter for general adult medical examination with abnormal findings Medications: Refilled fluticasone propionate 50 mcg/actuation (Allergy Relief (fluticasone)) administer into each nostril 1 spray intranasal DAILY 30 days 16 grams 6RF Discontinued amitriptyline Discontinued Reason: Doctor's Order 25 mg PO BEDTIME 30 days 30 tabs 2RF omeprazole Discontinued Reason: Doctor's Order 20 mg PO BID 90 days 180 caps 0RF K21.9 - Gastro-esophageal reflux disease without esophagitis albuterol sulfate 90 mcg/actuation (Ventolin HFA) Discontinued Reason: Doctor's Order 1 inh inhalation QID 30 days PRN 6.7 grams 0RF shortness of breath or wheezing simethicone (Gas Relief (simethicone)) Discontinued Reason: Doctor's Order 125 mg PO TID 30 days PRN 90 tabs 1RF abdominal distention R14.0 - Abdominal distension (gaseous)
== END 2024-03-24 14:43 | disposition home or self-care (01) ==
PROVIDERS: PCP Internal Medicine; Visit Provider Internal Medicine
DX: Z00.00 Encounter for general adult medical examination without abnormal findings (principal); G43.919 Migraine, unspecified, intractable, without status migrainosus; M77.12 Lateral epicondylitis, left elbow; R10.2 Pelvic and perineal pain

== ENCOUNTER 2024-04-06 08:43 | Outpatient (AMB) | payer OTHER, SELFPAY ==
--- NOTE | 2024-04-06 08:42 | A.OFFPC_ITS ---
Intake Visit Reasons: 1WK F/U Allergies acetaminophen [From PERCOCET] Allergy (Intermediate, Verified 04/06/24 08:42) RASH oxycodone [Percocet] Allergy (Intermediate, Verified 04/06/24 08:42) rash Sulfa (Sulfonamide Antibiotics) [SULFA (SULFONAMIDE ANTIBIOTICS)] Allergy (Intermediate, Verified 04/06/24 08:42) RASH latex [LATEX] Allergy (Mild, Verified 04/06/24 08:42) RASH Influenza Virus Vaccines Allergy (Verified 04/06/24 08:42) Shortness of Breath amoxicillin [Augmentin] Adverse Reaction (Intermediate, Verified 04/06/24 08:42) diarrhea clavulanic acid [Augmentin] Adverse Reaction (Unknown, Verified 04/06/24 08:42) diarrhea Medication List - Last Reconciled 04/06/24 by Rex Espino MD cholecalciferol (vitamin D3) (Vitamin D3) 50 mcg PO DAILY fluticasone propionate 50 mcg/actuation (Allergy Relief (fluticasone)) 1 spray intranasal DAILY 30 days rizatriptan 5 mg PO ONCE PRN 30 days Tobacco use date assessed: 03/24/24 Dental Screening Dental Screen Date: 03/24/24 HPI 1WK F/U HPI Details Chief Complaint medication review Assessment and Plan 53-year-old female with a history of hyp ercholesterolemia and migraines, presenting for review of laboratory results. The patient reports intermittent use of ibuprofen for pain management and has been using prescribed nasal spray as directed. She experiences occasional migraines, for which she uses medication sparingly. The laboratory results reveal normal complete blood count, metabolic profile, kidney and liver functions. Total cholesterol is slightly elevated at 159 mg/dL, which remains stable compared to the previous year. The good cholesterol levels are adequately elevated, providing some cardiovascular protection. No current migraine episodes were reported. Problems-Based Plan: 1. Hypercholesterolemia: E78.00 Content and Plan: The patient's total cholesterol is slightly elevated at 159 mg/dL, which is consistent with previous measurements. The patient is advised to work on dietary improvements, weight management, and regular exercise to manage cholesterol levels effectively. High-density lipoprotein (HDL) cholesterol is noted to be appropriately elevated, offering a protective effect. 2. Migraine Headaches: G43.909 Content and Plan: The patient reports only occasional use of migraine medication, indicating good control of symptoms. There is no immediate need for prescription refills as the patient still has an adequate supply. Continue current management and use medication as needed for acute migraine episodes. Problem List - Hypercholesterolemia - Migraine Headaches Patient Instructions - Continue using prescribed nasal spray as directed. - Use ibuprofen as needed for any aches or pains. - Follow a cholesterol-friendly diet, ex ercise regularly, and maintain a healthy weight to manage cholesterol levels. - Use migraine medication as needed and contact the office if the frequency of migraines increases or if medication is running low. - Confirm email address with the front d esk to gain access to the patient portal for future lab result reviews. [facility], LAT[facility] Medical History IUD complication Migraine without aura Hx of insomnia Hemorrhoids with complication History of COVID-19 Hemorrhoids Dysfunctional uterine bleeding PPD positive Bronchial asthma HNP (herniated nucleus pulposus) EMG normal Back pain Depression Acute anxiety GERD (gastroesophageal reflux disease) Herpes genitalia Surgical History History of endometrial ablation History of hemorrhoidectomy History of colonoscopy History of esophagogastroduodenoscopy (EGD) History of bilateral tubal ligation History of 3 sections Family History Father Hyperlipidemia Colon cancer CVD (cardiovascular disease) Mother Diabetes mellitus Glaucoma Maternal Grandmother Diabetes mellitus HTN (hypertension) Maternal Aunt Breast cancer Social History Housing: Condominium Alcohol intake: never Comment: instrument, sharps, sponges count-1st count done by bry murrieta and lennie; Patient Tobacco Use Status: Never used Tobacco e-Cigarette/Vaping Use: Never Used Second Hand Smoke Exposure: Yes Current occupational status: employed 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 Shabbir Ruiz, Sophia Luis, Alvino Sellers and colleagues, with an educational jennifer from [employer]. Review of Systems Const Denies chills and Denies fever(s) ENT Denies epistaxis and Denies nasal discharge Card Denies chest pain Resp Denies chest congestion, Denies cough and Denies hemoptysis GI Denies diarrhea and Denies nausea Skin/Breast Denies rash Neuro Reports no additional complaints Psych Reports no additional complaints Endo Reports no additional complaints Physical exam (Primary Care) Tobacco/Smoking Status: Tobacco use Status Tobacco use date assessed 03/24/24 04/06/24 08:43 Patient Tobacco Use Status Never used Tobacco 04/06/24 08:43 e-Cigarette/Vaping Use Never Used 04/06/24 08:43 Thrive Assessment: Date of Thrive Assessment Date Thrive assessed 03/24/24 04/06/24 08:43 Telehealth Telehealth Telehealth Platform: [facility] Location of provider rendering services: practice address Location of patient: address on file Patient Identification confirmed using: Name, : Yes Telehealth method: voice only Patient verbally consented to treatment: Yes Patient verbally consented to billing insurance company: Yes Patient informed of any privacy concerns related to visit: Yes Minutes spent on Phone/Video with Pt.: 14 Coding Level of Care Code Tele Est Pt Level 3 (38050) Diagnoses Intractable migraine without status migrainosus, unspecified migraine type G43.919 Migraine type: unspecified Status migrainosus presence: without status migrainosus Intractability: intractable Lipid disorder E78.9 Assessment & Plan Assessment & Plan (1) Migraine headache: Code(s): G43.909 - Migraine, unspecified, not intractable, without status migrainosus Category: Medical Qualifiers: Migraine type: unspecified Status migrainosus presence: without status migrainosus Intractability: intractable Qualified Code(s): G43.919 - Migraine, unspecified, intractable, without status migrainosus (2) Lipid disorder: Code(s): E78.9 - Disorder of lipoprotein metabolism, unspecified Category: Medical Plan Chief Complaint medication review Assessment and Plan 53-year-old female with a history of hypercholesterolemia and migraines, presenting for review of laboratory results. The patient reports intermittent use of ibuprofen for pain management and has been using prescribed nasal spray as directed. She experiences occasional migraines, for which she uses medication sparingly. The laboratory results reveal normal complete blood count, metabolic profile, kidney and liver functions. Total cholesterol is slightly elevated at 159 mg/dL, which remains stable compared to the previous year. The good choleste rol levels are adequately elevated, providing some cardiovascular protection. No current migraine episodes were reported. Problems-Based Plan: 1. Hypercholesterolemia: E78.00 Content and Plan: The patient's total cholesterol is slightly elevated at 159 mg/dL, which is consistent with previous measurements. The patient is advised to work on dietary improvements, weight management, and regular exercise to manage cholesterol levels effectively. High-density lipoprotein (HDL) cholesterol is noted to be appropriately elevated, offering a protective effect. 2. Migraine Headaches: G43.908 Content and Plan: The patient reports only occasional use of migraine medication, indicating good control of symptoms. There is no immediate need for prescription refills as the patient still has an adequate supply. Continue current management and use medication as needed for acute migraine episodes. Problem List - Hypercholesterolemia - Migraine Headaches Patient Instructions - Continue using prescribed nasal spray as directed. - Use ibuprofen as needed for any aches or pains. - Follow a cholesterol-friendly diet, exercise regularly, and maintain a healthy weight to manage cholesterol levels. - Use migraine medication as needed and contact the office if the frequency of migraines increases or if medication is running low. - Confirm email address with the front office assistant to gain access to the patient portal for future lab result reviews.
== END 2024-04-06 11:25 | disposition home or self-care (01) ==
LOC: HO.HMCC 08:43
PROVIDERS: PCP Internal Medicine; Visit Provider Internal Medicine
DX: G43.919 Migraine, unspecified, intractable, without status migrainosus (principal); E78.9 Disorder of lipoprotein metabolism, unspecified

== ENCOUNTER 2024-04-18 08:30 | Outpatient (AMB) | payer OTHER, SELFPAY ==
--- NOTE | 2024-04-18 08:37 | MHC.OFFVIS ---
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 Cancer Center Director: Cancer Center Director Present (Heidi) Accompanied by: Self / Same As Patient Allergies acetaminophen [From PERCOCET] Allergy (Intermediate, Verified 04/18/24 08:42) RASH oxycodone [Percocet] Allergy (Intermediate, Verified 04/18/24 08:42) rash Sulfa (Sulfonamide Antibiotics) [SULFA (SULFONAMIDE ANTIBIOTICS)] Allergy (Intermediate, Verified 04/18/24 08:42) RASH latex [LATEX] Allergy (Mild, Verified 04/18/24 08:42) RASH Influenza Virus Vaccines Allergy (Verified 04/18/24 08:42) Shortness of Breath amoxicillin [Augmentin] Adverse Reaction (Intermediate, Verified 04/18/24 08:42) diarrhea clavulanic acid [Augmentin] Adverse Reaction (Unknown, Verified 04/18/24 08:42) diarrhea HPI Comments Details: Presenting for annual exam. Complaining of hot flashes night sweats Last Pap/HPV was negative in 08/21 Last Mammogram was BI-RADS 1 in 05/26 Last Colonoscopy was in 02/19, the recommendation was to repeat in 5 years [facility] Medical History IUD complication Migraine without aura Hx of insomnia Hemorrhoids with complication History of COVID-19 Hemorrhoids Dysfunctional uterine bleeding PPD positive Bronchial asthma HNP (herniated nucleus pulposus) EMG normal Back pain Depression Acute anxiety GERD (gastroesophageal reflux disease) Herpes genitalia Surgical History History of endometrial ablation History of hemorrhoidectomy History of colonoscopy History of esophagogastroduodenoscopy (EGD) History of bilateral tubal ligation History of 3 sections Family History Father Hyperlipidemia Colon cancer CVD (cardiovascular disease) Mother Diabetes mellitus Glaucoma Maternal Grandmother Diabetes mellitus HTN (hypertension) Maternal Aunt Breast cancer Social History Housing: Condominium Alcohol intake: never Comment: instrument, sharps, sponges count-1st count done by bry murrieta and lennie; Patient Tobacco Use Status: Never used Tobacco e-Cigarette/Vaping Use: Never Used Second Hand Smoke Exposure: Yes Current occupational status: employed 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 Gender identity: Female Cognitive needs: No Hearing needs: No Vision needs: Yes Female Reproductive History Menstrual Age of Menarche: 13 Duration of menses: 3-5 days Date of last menstrual period: 02/23/24 Total pregnancies: 4 Full term: 3 Ab spontaneous: 1 Date of last pap smear: 08/09/20 (negative pap smear, negative hpv ) History of abnormal pap smear: No Date of Mammogram: 05/17/23 (bi rad 1) Review of Systems Const All systems reviewed & are unremarkable except as noted in HPI and below Card Reports as per HPI Resp Reports as per HPI GI Reports as per HPI and Reports no additional complaints Reports as per HPI Physical Exam Const General: cooperative, healthy appearing and comfortable Chest Chest palpation & inspection: normal inspection of the chest and normal palpation of entire chest wall Breast/axilla inspection: normal inspection of the breasts and normal inspection of the axillae Breast/axilla palpation: normal palpation of the breasts, normal palpation of the axillae and no axillary lymphadenopathy Resp Effort & Inspection: normal respiratory effort Auscultation: clear to auscultation bilaterally Percussion: percussion normal Cardio Palpation: normal PMI Rate: regular rate Rhythm: regular rhythm Heart sounds: no murmurs and no rubs Peripheral pulses: Peripheral pulses 2+ throughout GI Inspection: Yes normal to inspection Palpation (GI): Soft to palpation, nontender, no guarding, not rigid and No hepatosplenomegaly present Percussion: Yes normal to percussion Auscultation: normal bowel sounds Rectal Exam - Female: deferred General: Yes bladder normal to palpation External Female Exam: No lesion Speculum Exam - Vagina: normal appearance of the vagina, normal palpation, normal vaginal discharge and not erythematous Speculum Exam - Cervix: normal appearance of the cervix and normal palpation Bimanual exam- vagina & uterus: normal bimanual exam, normal palpation, uterine size normal, bladder normal to palpation, consistency normal and normal palpation Bimanual Exam- Adnexa, other: normal adnexae, no masses and no tenderness Assessment & Plan Assessment & Plan (1) Well woman exam: Code(s): Z01.419 - Encounter for gynecological examination (general) (routine) without abnormal findings Category: Medical Plan: Co testing not indicated this year. Counseled the patient about the recommended dietary allowance of 1200 mg of Calcium & 600 IU of vitamin D. Mammogram ordered. The patient was instructed to perform monthly self-breast exams and schedule annual exam in a year. All questions answered and the patient verbalized understanding. (2) Hot flashes: Code(s): R23.2 - Flushing Category: Medical Plan: Discussed with the patient the options of treatment of hot flashes including hormonal replacement therapy, all the pros, cons, risks and benefits (benefits= prevention of hot flashes, atrophic vaginitis, osteoporosis, decrease colon ca risk; also discussed with the patient the risks of LA, Breast ca, DVT, PE, Strokes). In addition, discussed with the patient non hormonal treatment options for hot flashes treatment in surgical menopausal patient. Options discussed with the patient include the following: SSRI/SNRIs , difficulty has been demonstrated in multiple trials clinical response is more rapid (days) than typical response to SSRI for depression (weeks), they are equally effective in natural versus surgical menopause, they have similar modest benefit for hot flashes; Citalopram 20 mg per day is another 1st choice option. Will send prescription for citalopram 20 mg p.o. q.d. instructions given the patient to schedule a follow-up appointment in 2 months. All questions answered, the patient follow up out understanding and agreed with the plan. Orders: Orders MM tomosynthesis screening BI Today Z12.31 - Encounter for screening mammogram for malignant neoplasm of breast Medications: New citalopram 20 mg PO DAILY 60 days 60 tabs 0RF Coding Level of Care Code Est Pt Level 3 (75633) Est Pt Prev Care 40-64y(70513) Diagnoses Well woman exam Z01.419 Hot flashes R23.2
== END 2024-04-18 09:02 | disposition home or self-care (01) ==
PROVIDERS: PCP Internal Medicine; Visit Provider Obstetrics & Gynecology
DX: Z01.419 Encounter for gynecological examination (general) (routine) without abnormal findings (principal); R23.2 Flushing
CPT/HCPCS: 99213; 99396; 99459

== ENCOUNTER 2024-05-23 08:56 | Outpatient (REF) | payer OTHER, SELFPAY | END 2024-05-23 08:57 | disposition home or self-care (01) | LOC: HO.MAMMO 08:56 | PROVIDERS: PCP Internal Medicine; Visit Provider Obstetrics & Gynecology | DX: Z12.31 Encounter for screening mammogram for malignant neoplasm of breast (principal) | CPT/HCPCS: 77063; 77067 ==

== ENCOUNTER → 2024-05-23 09:00 | Outpatient (BNV) | payer OTHER, SELFPAY | PROVIDERS: PCP Internal Medicine; Visit Provider Internal Medicine | DX: Z12.31 Encounter for screening mammogram for malignant neoplasm of breast (principal) | CPT/HCPCS: 77063; 77067 ==

== ENCOUNTER 2024-07-04 08:56 | Outpatient (REF) | payer OTHER, SELFPAY ==
--- NOTE | ~2024-07-04 | US_ITS ---
EXAMINATION: MM DIAGNOSTIC DIGITAL BREAST TOMOSYNTHESIS, RIGHT Limited right breast ultrasound. CLINICAL INFORMATION: Call back from screening for asymmetry in the superior right breast and lateral right breast COMPARISON: Mammography: Comparison is made with available prior exams on PACS. TECHNIQUE: Digital breast tomosynthesis is performed in both the craniocaudal and mediolateral oblique views along with computer-aided detection (CAD). Synthesized 2D images are generated from the tomosynthesis. FINDINGS: The breasts are heterogeneously dense, which may obscure small masses (ACR BI-RADS breast composition Category c). Previously seen asymmetries in the superior breast and lateral breast do not persist on additional imaging projections and likely represented overlapping breast tissue. Suspicious masses calcifications or other abnormal findings. Targeted color Doppler ultrasound scanning in the lateral breast from 7 -11:00 demonstrates normal fibronodular breast tissue. There is no sonographic abnormality. US/US breast RT limited mamm only IMPRESSION: No mammographic or sonographic abnormality. ASSESSMENT: BI-RADS BI-RADS 1 - Negative RECOMMENDATION: 1 year F/U Results were provided to the patient at time of visit by the technologist. This patient's information was entered into a reminder system with a target due date for their next mammogram. Electronically signed by: Sabrina Dowell DO 07/04/2024 09:46 AM MOLLY
== END 2024-07-04 08:57 | disposition home or self-care (01) ==
LOC: HO.MAMMO 08:56
PROVIDERS: PCP Internal Medicine; Visit Provider Internal Medicine
DX: N64.89 Other specified disorders of breast (principal)
CPT/HCPCS: 76642; 77061; 77065

== ENCOUNTER → 2024-07-04 09:30 | Outpatient (BNV) | payer OTHER, SELFPAY | PROVIDERS: PCP Internal Medicine; Visit Provider Internal Medicine | DX: R92.8 Other abnormal and inconclusive findings on diagnostic imaging of breast (principal) | CPT/HCPCS: 76642; 77061; 77065 ==

== ENCOUNTER 2024-08-24 08:43 | Outpatient (AMB) | payer OTHER, SELFPAY ==
--- NOTE | 2024-08-24 08:50 | MHC.OFFVIS ---
Intake Visit Reasons: Menopause symptoms follow up Shuttle Route Vehicle Operator: Shuttle Route Vehicle Operator Present (Heidi) Accompanied by: Daughter Allergies acetaminophen [From PERCOCET] Allergy (Intermediate, Verified 08/24/24 08:53) RASH oxycodone [Percocet] Allergy (Intermediate, Verified 08/24/24 08:53) rash Sulfa (Sulfonamide Antibiotics) [SULFA (SULFONAMIDE ANTIBIOTICS)] Allergy (Intermediate, Verified 08/24/24 08:53) RASH latex [LATEX] Allergy (Mild, Verified 08/24/24 08:53) RASH Influenza Virus Vaccines Allergy (Verified 08/24/24 08:53) Shortness of Breath amoxicillin [Augmentin] Adverse Reaction (Intermediate, Verified 08/24/24 08:53) diarrhea clavulanic acid [Augmentin] Adverse Reaction (Unknown, Verified 08/24/24 08:53) diarrhea Is last menstrual period known: Yes (x1 year ago) Post menopausal: Yes Patient : No HPI Comments Details: Presenting for follow-up after initiating citalopram for hot flashes, the patient developed upset stomach and discontinue it after 3 weeks. [facility] Medical History IUD complication Migraine without aura Hx of insomnia Hemorrhoids with complication History of COVID-19 Hemorrhoids Dysfunctional uterine bleeding PPD positive Bronchial asthma HNP (herniated nucleus pulposus) EMG normal Back pain Depression Acute anxiety GERD (gastroesophageal reflux disease) Herpes genitalia Surgical History History of endometrial ablation History of hemorrhoidectomy History of colonoscopy History of esophagogastroduodenoscopy (EGD) History of bilateral tubal ligation History of 3 sections Family History Father Hyperlipidemia Colon cancer CVD (cardiovascular disease) Mother Diabetes mellitus Glaucoma Maternal Grandmother Diabetes mellitus HTN (hypertension) Maternal Aunt Breast cancer Social History Housing: Condominium Alcohol intake: never Comment: instrument, sharps, sponges count-1st count done by bry murrieta and lennie; Patient Tobacco Use Status: Never used Tobacco e-Cigarette/Vaping Use: Never Used Second Hand Smoke Exposure: Yes Patient : No Current occupational status: employed 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 q.d. for 90 days. Instructions given the patient to call in case of any side effects and to schedule a three-month follow-up appointment. All questions answered, the patient verbalized understanding Medications: New escitalopram oxalate 10 mg PO DAILY 3 months 90 tabs 0RF Discontinued citalopram Discontinued Reason: Doctor's Order 20 mg PO DAILY 60 days 60 tabs 0RF Coding Level of Care Code Est Pt Level 3 (64375) Diagnoses Hot flashes R23.2
== END 2024-08-24 09:11 | disposition home or self-care (01) ==
LOC: HO.HWS 08:44
PROVIDERS: PCP Internal Medicine; Visit Provider Obstetrics & Gynecology
DX: R23.2 Flushing (principal)
CPT/HCPCS: 99213

== ENCOUNTER → 2024-08-24 08:43 | Outpatient (BNVA) | payer OTHER, SELFPAY | PROVIDERS: PCP Internal Medicine; Visit Provider Obstetrics & Gynecology ==

== ENCOUNTER 2024-11-09 09:55 | Outpatient (AMB) | payer OTHER, SELFPAY ==
--- NOTE | 2024-11-09 09:55 | MHC.OFFVIS ---
Intake Visit Reasons: medication follow up Allergies acetaminophen (From PERCOCET) Allergy (Intermediate, Verified 08/24/24 08:53) RASH oxycodone (Percocet) Allergy (Intermediate, Verified 08/24/24 08:53) rash Sulfa (Sulfonamide Antibiotics) (SULFA (SULFONAMIDE ANTIBIOTICS)) Allergy (Intermediate, Verified 08/24/24 08:53) RASH latex (LATEX) Allergy (Mild, Verified 08/24/24 08:53) RASH Influenza Virus Vaccines Allergy (Verified 08/24/24 08:53) Shortness of Breath amoxicillin (Augmentin) Adverse Reaction (Intermediate, Verified 08/24/24 08:53) diarrhea clavulanic acid (Augmentin) Adverse Reaction (Unknown, Verified 08/24/24 08:53) diarrhea HPI Comments Details: The patient is schedule telehealth visit for follow-up regarding hot flashes. The patient has been taking escitalopram 10 mg p.o. q.d. her hot flashes her controlled 80% with no side if PFSH Medical History IUD complication Migraine without aura Hx of insomnia Hemorrhoids with complication History of COVID-19 Hemorrhoids Dysfunctional uterine bleeding PPD positive Bronchial asthma HNP (herniated nucleus pulposus) EMG normal Back pain Depression Acute anxiety GERD (gastroesophageal reflux disease) Herpes genitalia Surgical History History of endometrial ablation History of hemorrhoidectomy History of colonoscopy History of esophagogastroduodenoscopy (EGD) History of bilateral tubal ligation History of 3 sections Family History Father Hyperlipidemia Colon cancer CVD (cardiovascular disease) Mother Diabetes mellitus Glaucoma Maternal Grandmother Diabetes mellitus HTN (hypertension) Maternal Aunt Breast cancer Social History Housing: Condominium Alcohol intake: never Comment: instrument, sharps, sponges count-1st count done by bry murrieta and lennie; Patient Tobacco Use Status: Never used Tobacco e-Cigarette/Vaping Use: Never Used Second Hand Smoke Exposure: Yes Current occupational status: employed 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 Gender identity: Female Cognitive needs: No Hearing needs: No Vision needs: Yes Female Reproductive History Menstrual Age of Menarche: 13 Review of Systems Const All systems reviewed & are unremarkable except as noted in HPI and below Reports as per HPI and Reports no additional complaints GI Reports no additional complaints Reports no additional complaints Telehealth Telehealth Telehealth Platform: Telephone Location of provider rendering services: practice address Location of patient: address on file Patient Identification confirmed using: Name, : Yes Telehealth method: video Patient verbally consented to treatment: Yes Patient verbally consented to billing insurance company: Yes Patient informed of any privacy concerns related to visit: Yes Minutes spent on Phone/Video with Pt.: 2 Assessment & Plan Assessment & Plan (1) Hot flashes: Code(s): R23.2 - Flushing Category: Medical Plan: Prescription refill for 90 days with 3 refills was sent to the patient's pharmacy. Instructions given to patient to call in case of any concerns. All questions answered, the patient verbalized understanding. I spent a total of 20 minutes reviewing the chart, talking to the patient via video and documenting in the medical record. Medications: Refilled escitalopram oxalate 10 mg PO DAILY 90 tabs 3RF 3 months Coding Level of Care Code Tele Est Pt Level 3 (68393) Diagnoses Hot flashes R23.2
== END 2024-11-09 10:43 | disposition home or self-care (01) ==
LOC: HO.HWS 09:55
PROVIDERS: PCP Internal Medicine; Visit Provider Obstetrics & Gynecology
DX: R23.2 Flushing (principal)
CPT/HCPCS: 98005

== ENCOUNTER 2025-02-09 08:08 | Outpatient (AMB) | payer OTHER, SELFPAY ==
[2025-02-09 08:10] VITALS: BP 122/78; PULSE 78; O2SAT 98
--- NOTE | 2025-02-09 08:10 | A.OFFPC_ITS ---
Vital Signs 02/09/25 08:10 Height 5 ft 4 in Weight 175 lb BMI 30.0 BP 122/78 Blood Pressure Location Lt brachial Position Sitting Pulse 78 Pulse Source Pulse Oximeter Pulse Oximetry (%) 98 Intake Visit Reasons: sharp burning pain on chest Allergies acetaminophen (From PERCOCET) Allergy (Intermediate, Verified 02/09/25 08:11) RASH oxycodone (Percocet) Allergy (Intermediate, Verified 02/09/25 08:11) rash Sulfa (Sulfonamide Antibiotics) (SULFA (SULFONAMIDE ANTIBIOTICS)) Allergy (Intermediate, Verified 02/09/25 08:11) RASH latex (LATEX) Allergy (Mild, Verified 02/09/25 08:11) RASH Influenza Virus Vaccines Allergy (Verified 02/09/25 08:11) Shortness of Breath amoxicillin (Augmentin) Adverse Reaction (Intermediate, Verified 02/09/25 08:11) diarrhea clavulanic acid (Augmentin) Adverse Reaction (Unknown, Verified 02/09/25 08:11) diarrhea Medication List - Last Reconciled 02/09/25 by Rex Espino MD cetirizine 10 mg PO DAILY cholecalciferol (vitamin D3) (Vitamin D3) 50 mcg PO DAILY escitalopram oxalate 10 mg PO DAILY 3 months fluticasone propionate 50 mcg/actuation (Allergy Relief (fluticasone)) 1 spray intranasal DAILY 30 days rizatriptan 5 mg PO ONCE PRN 30 days Tobacco use date assessed: 02/09/25 Dental Screening Dental Screen Date: 02/09/25 Did you have a dental visit in the last 12 months?: Yes Did you have a dental problem in the last 6 months where you did not have access to dental care?: No Was dental information given to patient?: Patient has dentist HPI sharp burning pain on chest HPI Details History of Present Illness The patient is a 54-year-old female presenting with atypical chest pain and shortness of breath. Atypical Chest Pain: - The patient reports experiencing unusu al pain noticed after returning from a month-long vacation. - Describes the pain as a burning and ti ght sensation in the chest, which sometimes occurs throughout the day and lasts a couple of hours. - Pain is not associated with radiation to the left arm or jaw and not accompanied by sweating. - Has been experiencing symptoms for ove r a month, which sometimes wake her from sleep. - Has not been taking a prescribed medic ation for reflux regularly, potentially exacerbating symptoms. Shortness of Breath: - Shortness of breath noted to occur con currently with chest pain. - Has been persistent for more than a mo nth and sometimes occurs during the night. Cough: - Reports a cough that is indicative of reflux issues. - Past history indicates a tendency to b ronchitis and pneumonia, with productive cough of green and yellow sputum. Left Arm: - Experiences pain localized to the lef t arm, particularly when attempting to lift heavy objects. - Difficulty gripping or holding onto it ems without pain - pain is more so around elbow Medications: - Omeprazole, prescribed for reflux to b e taken two times daily, though patient takes it as needed. Social History: - Mention of using right hand for carryi ng bags, which contributes to left arm pain. Diagnostic Results: - EKG performed today, shows NSR, no ac tolu findings Problem List - Atypical Chest Pain - Gastroesophageal Reflux Disease (GERD) - Cough associated with reflux - Tennis Elbow left Plan - start regular use of PPI regimen for b patricia control of reflux symptoms, considering a transition to a stronger, once-daily medication for adherence. start Pantoprozle 40 mg at night - Monitoring the patient's ability to pe rform daily activities without exacerbating arm pain, and provide recommendations to redistribute weight carried in hands to prevent muscle strain at elbow - No flu vaccine administration due to p ast adverse reaction. Review of Systems - General: No fever no chills - Neurological: No headaches no dizziness - Ear nose throat: No sore throat no hearing difficulty no ear pain - Cardiovascular: No syncope, no palpitations - Gastrointestinal: No nausea vomiting or diarrhea - Endocrine: No polyuria polydipsia no heat intolerance - Genitourinary: No dysuria , no blood in urine Physical Exam General: No acute distress HEENT: No acute findings Neck: Supple Respiratory system: Able to talk in full sentences, no audible wheeze Cardiovascular: S1-S2 regular in rate and rhythm, Gastrointestinal: no pain with Palpation Extremities: Pain over Lateral Epicondyl with Palpation [employer]OR OF RE[employer]UITMENT: Alert awake oriented x3 motor intact Skin: Normal turgor PFSH Medical History IUD complication Migraine without aura Hx of insomnia Hemorrhoids with complication History of COVID-19 Hemorrhoids Dysfunctional uterine bleeding PPD positive Bronchial asthma HNP (herniated nucleus pulposus) EMG normal Back pain Depression Acute anxiety GERD (gastroesophageal reflux disease) Herpes genitalia Surgical History History of endometrial ablation History of hemorrhoidectomy History of colonoscopy History of esophagogastroduodenoscopy (EGD) History of bilateral tubal ligation History of 3 sections Family History Father Hyperlipidemia Colon cancer CVD (cardiovascular disease) Mother Diabetes mellitus Glaucoma Maternal Grandmother Diabetes mellitus HTN (hypertension) Maternal Aunt Breast cancer Social History Housing: Condominium Alcohol intake: never Comment: instrument, sharps, sponges count-1st count done by bry murrieta and lennie; Patient Tobacco Use Status: Never used Tobacco e-Cigarette/Vaping Use: Never Used Second Hand Smoke Exposure: Yes Current occupational status: employed 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 1. Little interest or pleasure in doing things: more than half the days 2. Feeling down, depressed, or hopeless: more than half the days 3. Trouble falling or staying asleep, or sleeping too much: nearly every day 4. Feeling tired or having little energy: more than half the days 5. Poor appetite or overeating: nearly every day 6. Feeling bad about yourself - or that you are a failure or have let yourself or your family down: not at all 7. Trouble concentrating on things, such as reading the newspaper or watching television: not at all 8. Moving or speaking so slowly that other people could have noticed. Or the opposite - being so fidgety or restless that you have been moving around a lot more than usual: more than half the days 9. Thoughts that you would be better off or of hurting yourself in some way: not at all Total score: 14 Depression Screening Interpretation: Positive Depression Screening Follow-up: Existing condition and In treatment Depression Screening Done: Yes 68052 - PHQ-9 Billing: Yes Source: Developed by Drs. Shabbir Ruiz, Sophia Luis, Alvino Sellers and colleagues, with an educational jennifer from [employer]. Thrive Questionnaire Date Thrive assessed: 02/09/25 I am a: Patient What is your living situation today?: I have a steady place to live Within the past 12 months, did the food you bought not last and you didn't have the money to get more?: Sometimes True Within the past 12 months, did you worry whether your food would run out before you got money to buy more?: Sometimes True Do you have trouble paying for medicines?: No Do you have trouble getting transportation to medical appointments?: No Do you have trouble paying your heating and electricity bill?: Yes Do you have trouble taking care of your child, family member or friend?: No Do you have trouble with day-to-day activities such as bathing, preparing meals, shopping, managing finances, etc.?: No Are you currently unemployed and looking for a job?: No Are you interested in more education?: No Please select the resources that you would like help with: Food, Utilities and Education Currently or been in a relationship where the following occur: I choose not to answer THRIVE Score: 3 AUDIT C Alcohol Use Questionnaire (AUDIT-C) 1. How often do you have a drink containing alcohol?: Never 3. How often do you have six or more drinks on one occasion?: Never Total Score: 0 Score Reviewed/Action Taken: Yes YAZMIN-7 AMB Questionnaire YAZMIN-7 Date YAZMIN - 7 assessed: 02/09/25 Feeling nervous, anxious, or on edge: 2 = More than half the days Not being able to stop or control worryin = Nearly every day Worrying too much about different things: 3 = Nearly every day Trouble relaxin = More than half the days Being so restless that it is hard to sit still: 0 = Not at all Becoming easily annoyed or irritable: 2 = More than half the days Feeling afraid as if something awful might happen: 3 = Nearly every day Total YAZMIN-7 score (0-4 normal; 5-9 mild; 10-14 moderate; 15-21 severe): 15 Source: Developed by Sophia Platt.W. Toby, Alvino Sellers and colleagues, with an educational jennifer from [employer]. YAZMIN-7 Assessment Billing YAZMIN-7 Assessment Tool: YAZMIN-7 Assessment 99978 Physical exam (Primary Care) Vital Signs: Last Vital Signs Pulse 78 02/09/25 08:10 BP 122/78 02/09/25 08:10 Pulse Ox 98 02/09/25 08:10 BMI result Body Mass Index 30.0 Tobacco/Smoking Status: Tobacco use Status Tobacco use date assessed 02/09/25 02/09/25 08:17 Patient Tobacco Use Status Never used Tobacco 02/09/25 08:17 e-Cigarette/Vaping Use Never Used 02/09/25 08:17 PHQ-9: PHQ-9 Score PHQ-9: Total score 14 02/09/25 08:46 Depression Screening Interpretation: Positive Depression Screening Follow-up: Existing condition and In treatment Thrive Assessment: Date of Thrive Assessment Date Thrive assessed 02/09/25 02/09/25 08:17 Currently or been in a relationship where the following occur: I choose not to answer Office Procedures EKG [id number], Complete Coding Level of Care Code Est Pt Level 4 (68033) Diagnoses Chest pain R07.9 Shortness of breath R06.02 Dyspepsia R10.13 Gastroesophageal reflux disease without esophagitis K21.9 Esophagitis presence: without esophagitis Left tennis elbow M77.12 CPT Codes EKG - CPT: 13408-[id number], Complete ([id number]) Additional Codes YAZMIN-7 Assessment Billing - YAZMIN-7 Assessment Tool: YAZMIN-7 Assessment 11181 ([id number]) PHQ-9 - 52115 - PHQ-9 Billing: Yes ([id number]) Assessment & Plan Assessment & Plan (1) Chest pain: Code(s): R07.9 - Chest pain, unspecified Category: Medical (2) Shortness of breath: Code(s): R06.02 - Shortness of breath Category: Medical (3) Dyspepsia: Code(s): R10.13 - Epigastric pain Category: Medical (4) GERD (gastroesophageal reflux disease): Comment: Continue omeprazole 20 mg p.r.n. Code(s): K21.9 - Gastro-esophageal reflux disease without esophagitis Category: Medical Qualifiers: Esophagitis presence: without esophagitis Qualified Code(s): K21.9 - Gastro-esophageal reflux disease without esophagitis (5) Left tennis elbow: Code(s): M77.12 - Lateral epicondylitis, left elbow Category: Medical Plan History of Present Illness The patient is a 54-year-old female presenting with atypical chest pain and shortness of breath. Atypical Chest Pain: - The patient reports experiencing unusual pain noticed after returning from a month-long vacation. - Describes the pain as a burning and tight sensation in the chest, which sometimes occurs throughout the day and lasts a couple of hours. - Pain is not associated with radiation to the left arm or jaw and not accompanied by sweating. - Has been experiencing symptoms for over a month, which sometimes wake her from sleep. - Has not been taking a prescribed medication for reflux regularly, potentially exacerbating symptoms. Shortness of Breath: - Shortness of breath noted to occur concurrently with chest pain. - Has been persistent for more than a month and sometimes occurs during the night. Cough: - Reports a cough that is indicative of reflux issues. - Past history indicates a tendency to bronchitis and pneumonia, with productive cough of green and yellow sputum. Left Arm: - Experiences pain localized to the left arm, particularly when attempting to lift heavy objects. - Difficulty gripping or holding onto items without pain - pain is more so around elbow Medications: - Omeprazole, prescribed for reflux to be taken two times daily, though patient takes it as needed. Social History: - Mention of using right hand for carrying bags, which contributes to left arm pain. Diagnostic Results: - EKG performed today, shows NSR, no acute findings Problem List - Atypical Chest Pain - Gastroesophageal Reflux Disease (GERD) - Cough associated with reflux - Tennis Elbow left Plan - start regular use of PPI regimen for better control of reflux symptoms, consid ering a transition to a stronger, once-daily medication for adherence. start Pantoprozle 40 mg at night - Monitoring the patient's ability to perform daily activities without exacerbating arm pain, and provide recommendations to redistribute weight carried in hands to prevent muscle strain at elbow - No flu vaccine administration due to past adverse reaction. f/u next month Medications: New pantoprazole 40 mg PO DAILY 90 tabs 0RF sucralfate (Carafate) 1 g PO BID PRN 30 tabs 0RF Heart burn 15 days
== END 2025-02-09 08:53 | disposition home or self-care (01) ==
LOC: HO.HMCC 08:09
PROVIDERS: PCP Internal Medicine; Visit Provider Internal Medicine
DX: R07.9 Chest pain, unspecified (principal); R06.02 Shortness of breath; R10.13 Epigastric pain; K21.9 Gastro-esophageal reflux disease without esophagitis; M77.12 Lateral epicondylitis, left elbow

== ENCOUNTER → 2025-02-09 08:08 | Outpatient (BNVA) | payer OTHER, SELFPAY | PROVIDERS: PCP Internal Medicine; Visit Provider Internal Medicine | DX: R07.89 Other chest pain (principal); R06.02 Shortness of breath; R10.13 Epigastric pain; K21.9 Gastro-esophageal reflux disease without esophagitis; M77.12 Lateral epicondylitis, left elbow; Z79.899 Other long term (current) drug therapy; Z13.31 Encounter for screening for depression; Z13.39 Encounter for screening examination for other mental health and behavioral disorders | CPT/HCPCS: 93005; 96127 ==

== ENCOUNTER 2025-03-08 09:10 | Outpatient (AMB) | payer OTHER, SELFPAY ==
--- NOTE | 2025-03-08 09:11 | MHC.OFFVIS ---
Vital Signs 03/08/25 09:15 Height 5 ft 4 in Weight 173 lb 11.588 oz BMI 29.8 BP 137/95 H Blood Pressure Location Lt brachial Position Sitting Pulse 78 Intake Visit Reasons: [facility] 10/2021 gerd Intake Note: Patient new consult for GERD. EVIE: 10/2021 Patient cc: on and off burning pain on chest that spreads to back. Saw PCP Dr. Keller 3wks ago who prescribed Pastorale 40mg before meals and Sucralfate 1pill as needed. Reports little improvement with medications. Work Order Clerk Required: No Accompanied by: Self / Same As Patient Allergies acetaminophen (From PERCOCET) Allergy (Intermediate, Verified 03/08/25 09:22) RASH oxycodone (Percocet) Allergy (Intermediate, Verified 03/08/25 09:22) rash Sulfa (Sulfonamide Antibiotics) (SULFA (SULFONAMIDE ANTIBIOTICS)) Allergy (Intermediate, Verified 03/08/25 09:22) RASH latex (LATEX) Allergy (Mild, Verified 03/08/25 09:22) RASH Influenza Virus Vaccines Allergy (Verified 03/08/25 09:22) Shortness of Breath amoxicillin (Augmentin) Adverse Reaction (Intermediate, Verified 03/08/25 09:22) diarrhea clavulanic acid (Augmentin) Adverse Reaction (Unknown, Verified 03/08/25 09:22) diarrhea Medication List - Last Reconciled 03/08/25 by Amanda Lopez MD cetirizine 10 mg PO DAILY cholecalciferol (vitamin D3) (Vitamin D3) 50 mcg PO DAILY escitalopram oxalate 10 mg PO DAILY 3 months fluticasone propionate 50 mcg/actuation (Allergy Relief (fluticasone)) 1 spray intranasal DAILY 30 days pantoprazole 40 mg PO DAILY rizatriptan 5 mg PO ONCE PRN 30 days sucralfate (Carafate) 1 g PO BID PRN 15 days HPI HPI [facility] 10/2021 gerd: Details: GI Clinic visit for this 51-year-old female for follow-up of epigastric pain, anemia and rectal bleeding. Pt had hemorrhoid surgery by Dr Suh in 04/2021 CHRONIC ILLNESSES:?herpes, genital, GERD, ANXIETY, DEPRESSION, OVARIAN CYST, BACK PAIN, HNP, PPD POSITIVE, DYSFUNCTIONAL UTERINE BLEEDING TODAY'S VISIT [facility] 10/2021 Patient reports on and off burning pain on chest that spreads to back. Saw PCP Dr. Keller 3wks ago who prescribed Pastorale 40mg before meals and Sucralfate 1pill as needed. Reports little improvement with medications. Some problem digesting the food. In Jan while on vacation, she woke up one night with a burning pain sensation with throbbing sensation radiating to the back Feels the pain when she moves, also having neck problems She was taking Omeprazole prn and doing nothing even when she took it. Taking Pantoprazole intermittently and notes partial improvement - advised to take it daily. Taking sucralfate prn. Notes regurgitation Gets unusual coughing spell when she lies down - and can last all through the night. Coughs so hard that she chokes. Admits to wt gain from 155 to 173 since the summer. 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 A day after a period, she noted a burining pain in the entire abdomen - lasted a whole week. [place] everything was on fire. Onions and broccoli trigger acid reflux. Symptoms resolved and noted symptoms again 1 day before her period. Notes bloating and feels her stomach go up. Denies change in BM - has a formed BM 2-3 times a day. Denies rectal bleeding. Denies taking aspirin or NSAIDS. Resumed taking Omeprazole end of August and increased to twice a day in October,. Denies known FH of IBD. PAST VISITS: Patient 6 month follow up for GERD and Hemorrhoids. Had a lot of pain for the 1st week after surgery Prescribed Tramadol and Ibuprofen and felt sleepy. [place] better after she stopped the Tramadol and took only Ibuprofen. Still has some swelling and pain.? Has some bleeding with BMs. Taking Colace and denies constipation Has a BM twice a day. Notes chest pain after the surgery for a week and a half - still gets it once in a while triggered by certain foods - fruits, yogurt, salads, rice and beans.? One time with chicken soup. Continues to have intermittent dysphagia to solid foods - has to slow down to eat ? Vaccinated for COVID (J&J) a few months ago - concerned since it is 75% effective Has been having joint pains since. Does not get reflux as often. Takes medications prn. Drinks a lot of fluids throughout the day. Continues to have intermittent rectal bleeding with prolapsing hemorrhoids - uses HC cream prn at night. Continues to have heavy menstrual bleeding being treated with hormonal therapy Jun 2020 Pt had a hysteroscopy and D&C and it was noted to have peritoneum on biopsy.? She was converted to a diagnostic laparoscopy to assure no internal or intestinal injuries. Operative findings:? Patient was found to have entry into the abdominal cavity above the uterus and lateral to the bladder.? No colonic or small bowel injury is identified.? A large collection of irrigation fluid was noted within the abdominal cavity.? The fluid was not bile or stool stained.? No hematoma of the abdominal wall could be identified ? [facility] Review[facility]. ?IMAGING STUDIES: 05/2018 Barium swallow showed: ? FINDINGS: ? The esophagus is normal in course and caliber. No esophageal mass ? lesions and no definite ulcerations are seen. Esophageal motility is ? normal. There is no hiatal hernia. A barium tablet passed through the ? esophagus and GE junction without difficulty. No gastroesophageal reflux visualized. ?05/[address] scan showed: ? IMPRESSION: ? Moderate constipation without obstruction. Otherwise no acute ? intra-abdominal process seen. ? ENDOSCOPIC STUDIES:02/27/20? COLONOSCOPY SHOWED: ? No polyps were detected, random biopsies were obtained from the colon ? Moderate hemorrhoids on retroflexed exam. ? Plan:? Await pathology results ? Patient has an appointment on 03/04/20 in the GI Clinic with Amanda Lopez M.D.-. ? Repeat Colonoscopy interval based on path results - in 5 years due to positive FH of colon cancer? (Dad in his 60's). ? Above findings were reviewed with the patient and a handout on Hemorrhoids was given in the discharge area 03/13/19 EGD SHOWED: ? ESOPHAGUS: Dysphagia likely from esophageal motility disorder versus EOE. ? STOMACH: Gastritis with prominent gastric folds ? DUODENUM: Normal ? Plan: ? Await pathology results ? Continue present medications (Omeprazole at 20 mg PO once daily) ? Patient has an appointment on 04/12/19 in the GI Clinic with Amanda Lopez M.D ? Above findings were reviewed with the patient and GERD and Gastritis handouts ? were provided in the discharge area. ? BIOPSIES SHOWED: ? A. Small bowel, biopsy: Small bowel mucosa with no significant histopathology;no ? villous abnormality identified; no increase in intraepithelial lymphocytes. ? B. Stomach, antrum, biopsy: Moderate active gastritis; Helicobacter pylori organisms present. ? C. Stomach, folds, biopsy: Moderate active gastritis with reactive ? epithelial changes; Helicobacter pylori organisms present. ? D. Esophagus, proximal, biopsy: Squamous epithelium within normal limits; no ? evidence of eosinophilic esophagitis [facility] (Updated 03/08/25 @ 09:27 by Amanda Lopez MD) IUD complication Migraine without aura Hx of insomnia Hemorrhoids with complication History of COVID-19 Hemorrhoids Dysfunctional uterine bleeding PPD positive Bronchial asthma HNP (herniated nucleus pulposus) EMG normal Back pain Depression Acute anxiety GERD (gastroesophageal reflux disease) Herpes genitalia Surgical History History of endometrial ablation History of hemorrhoidectomy History of colonoscopy History of esophagogastroduodenoscopy (EGD) History of bilateral tubal ligation History of 3 sections Family History Father Hyperlipidemia Colon cancer CVD (cardiovascular disease) Mother Diabetes mellitus Glaucoma Maternal Grandmother Diabetes mellitus HTN (hypertension) Maternal Aunt Breast cancer Social History Housing: Condominium Alcohol intake: never Comment: instrument, sharps, sponges count-1st count done by bry murrieta and lennie; Patient Tobacco Use Status: Never used Tobacco e-Cigarette/Vaping Use: Never Used Second Hand Smoke Exposure: Yes Current occupational status: employed 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 occupation: [employer]TA[employer] Gender identity: Female Cognitive needs: No Hearing needs: No Vision needs: Yes Female Reproductive History Menstrual Age of Menarche: 13 Review of Systems Const Reports fatigue, Denies fever(s), Reports headache(s), Reports weight gain and Denies weight loss Eyes Denies eye discharge and Denies irritation ENT Reports Normal hearing present, Reports dysphagia, Denies dizziness, Reports headache(s), Reports hoarseness and Reports sore throat Card Reports chest pain, Denies leg edema, Reports dyspnea and Reports dyspnea on exertion Resp Reports cough, Reports dyspnea, Reports dyspnea on exertion and Reports wheezing GI Reports abdominal pain, Reports bloating, Denies change in bowel habits, Reports dysphagia, Reports heartburn, Reports nausea and Reports vomiting Denies difficulty voiding, Denies dysuria and Reports other (Frequent urination) Musc Denies back pain and Reports arthralgias Skin/Breast Denies pruritus, Denies rash and Denies jaundice Neuro Reports Normal hearing present, Denies Abnormal speech present, Denies dizziness, Reports headache(s) and Denies seizure-like activity Psych Reports anxiety, Denies depression and Denies panic attacks Endo Denies cold intolerance, Reports fatigue, Denies flushing and Denies heat intolerance Grabiel/Lymph Denies easy bleeding and Denies easy bruising Aller/Immun Reports wheezing Physical Exam Vital Signs: Last Vital Signs Pulse 78 03/08/25 09:15 BP 137/95 H 03/08/25 09:15 BMI result Body Mass Index 29.8 Const General: healthy appearing and no acute distress Nutritional Appearance: overweight Orientation/consciousness: patient oriented x3 Limitations: no limitations HEENT Head: Yes normal to inspection Ears: hearing grossly normal bilaterally Eyes Sclerae: sclerae normal Pupils: Equal, round and reactive pupils present Neck Neck: Yes normal visual inspection Chest Chest palpation & inspection: normal inspection of the chest Resp Effort & Inspection: normal respiratory effort Auscultation: clear to auscultation bilaterally Cardio Palpation: normal PMI Rate: regular rate Rhythm: regular rhythm Heart sounds: S1 normal heart sound present, S2 normal heart sound present and no murmurs GI Palpation (GI): Soft to palpation, nontender and No hepatosplenomegaly present Auscultation: normal bowel sounds Rectal Exam - Female: deferred Skin General skin exam: no rashes or lesions noted Neuro General: patient oriented x3, gait normal and moves all extremities Cranial nerves: Yes Equal, round and reactive pupils present and Yes Normal hearing present Speech: No Abnormal speech present Psych Appearance: grossly normal Mental Status: mental status grossly normal Assessment & Plan Assessment & Plan (1) GERD (gastroesophageal reflux disease): Comment: Continue omeprazole 20 mg p.r.n. Code(s): K21.9 - Gastro-esophageal reflux disease without esophagitis Category: Medical Qualifiers: Esophagitis presence: without esophagitis Qualified Code(s): K21.9 - Gastro-esophageal reflux disease without esophagitis (2) Dyspepsia: Code(s): R10.13 - Epigastric pain Category: Medical (3) Hemorrhoids, internal, with bleeding: Comment: 04/[address] Suh with resolution of rectal bleeding Code(s): K64.8 - Other hemorrhoids Category: Medical (4) Abdominal bloating: Code(s): R14.0 - Abdominal distension (gaseous) Category: Medical (5) Epigastric pain: Code(s): R10.13 - Epigastric pain Category: Medical (6) Family history of colon cancer: Code(s): Z80.0 - Family history of malignant neoplasm of digestive organs Category: Medical Plan 54 YF with genital herpes, GERD, anxiety, depression, ovarian cyst, back pain, HNP, PPD POSITIVE, dysfunctional uterine bleeding seen for evaluation of heartburn and intermittent episodes of epigastric pain, GERD. Pt Complained of dysphagia with eating in the past and denies noticing any swallowing problems recently. 03/21 EGD showed gastritis with prominent gastric folds, no esophageal stricture was seen. Dysphagia is likely due to esophageal motility disorder. Gastric biopsies were positive for Helicobacter pylori. Patient was treated with triple therapy in 03/2019. Family history of gastric cancer in a couple of paternal aunts and of colon cancer in her father who was diagnosed in his 60s. Her genetic testing results, [employer] [facility] [employer], show no deleterious mutations. 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 02/19? colonoscopy showed hemorrhoids and no polyps.? Random biopsies obtained from the colon were? normal. Patient complains of intermittent bleeding and swelling related to hemorrhoids despite hydrocortisone cream and had hemorrhoidectomy by Dr Suh in 04/2021 with decrease in bleeding. Pt was advised to follow a FODMAP diet for 6 weeks and take simethicone as needed for bloating. 03/08/25 worsening GERD symptoms likely related to weight gain and taking the PPI intermittent. Patient advised to take pantoprazole daily half an hour before dinner or bedtime and continue sucralfate p.r.n.. If symptoms persist may need to increase pantoprazole to twice daily Pt advised to schedule a barium swallow to evaluate GERD and dysphagua Schedule an upper endoscopy with possible dilation and colonoscopy (Family hx of colon cancer) Follow-up GI appointment in 4 months Orders: Orders [place] barium swallow Today K21.9 - Gastro-esophageal reflux disease without esophagitis Referrals GI Procedure Notification K21.9 - Gastro-esophageal reflux disease without esophagitis, Z80.0 - Family history of malignant neoplasm of digestive organs Coding Level of Care Code Est Pt Level 4 (80838) Diagnoses Gastroesophageal reflux disease without esophagitis K21.9 Esophagitis presence: without esophagitis Dyspepsia R10.13 Hemorrhoids, internal, with bleeding K64.8 Abdominal bloating R14.0 Epigastric pain R10.13 Family history of colon cancer Z80.0 Time Spent (min) 20
[2025-03-08 09:15] VITALS: BP 137/95; PULSE 78; BMI 29.8
== END 2025-03-08 09:55 | disposition home or self-care (01) ==
LOC: HO.HGI 09:10
PROVIDERS: PCP Internal Medicine; Visit Provider Internal Medicine Gastroenterology
DX: K21.9 Gastro-esophageal reflux disease without esophagitis (principal); R10.13 Epigastric pain; K64.8 Other hemorrhoids; R14.0 Abdominal distension (gaseous); Z80.0 Family history of malignant neoplasm of digestive organs
CPT/HCPCS: 99214